=== PATIENT | female | born 1940 | race Native Hawaiian/Other Pacific Islander ===

== ENCOUNTER 2016-11-22 05:46 | Inpatient (IN) | payer MEDICARE, OTHER ==
[~2016-11-22] VITALS: Ht 157.5 cm; Wt 70.3 kg
[2016-11-22] VITALS (24 sets, daily range): BP systolic 101–158; BP diastolic 49–90
[~2016-11-22 05:46] MED LIST: ACET-2154 PO; ALBU2.5V13 IH; ALPR0.255 PO; APIX5TAB PO; ASCO500C16 PO; ASCO500T9 NG; ASPI81TA31 PO; ATOR80TA PO; BISA10SU8 RC; CALC500T3 PO; CARV12.52 NG; CEFT1VIA65 IV; CHOL200013 PO; DIPH25CA83 PO; DOCU-170 PO; DOCU50LI NG; DULO60CA45 PO; FLUC100T NG; Furosemide PO; GLIP10TA11 PO; HYDR-552 PO; IPRA0.2S48 IH; LACT1CAP57 NG; LIDOCAINE PATCH TOP; MAG360OR83 PO; METO50TA7 PO; MINE120C3 TP; MINE454C11 TOP; MIRT7.5T10 PO; MULT1TAB11 PO; NIFE60TA2 PO; Nut.tx.glucose Intolerance,Soy PO; ONDA4TAB5 PO; OXYCONTIN HCL PO; PANT40TA2 PO; RXVAN XX; SODI473S8 TP; Silver Sulfadiazine TP; ZINC220C8 NG; ZINC220T PO; [UNRECOGNIZED DRUG - OTHER]; [UNRECOGNIZED DRUG - OTHER] SUBCUT
[2016-11-22] MEDS ORDERED: FURO-152 PO (06:04)
[2016-11-22] MEDS ORDERED: LOSA100T3 PO (06:09)
[2016-11-22] MEDS ORDERED: AMLO10TA4 PO (06:09)
[2016-11-22 06:35] LABS: BASOPHILS # (AUTO) 0.2 K/uL (0.0-0.2); BASOPHILS % (AUTO) 1.6 % (0.0-2.0); EOSINOPHILS # (AUTO) 0.2 K/uL (0.0-0.7); EOSINOPHILS % (AUTO) 1.5 % (0.0-7.0); LYMPHOCYTES # (AUTO) 1.5 K/uL (0.8-4.8); LYMPHOCYTES % (AUTO) 14.4 % (20.5-51.5); MEAN CORPUSCULAR HGB CONC 32 g/dL (32.0-37.0); MEAN CORPUSCULAR VOLUME 89.8 fL (81.0-99.0); MONOCYTES # (AUTO) 0.6 K/uL (0.1-1.30); MONOCYTES % (AUTO) 5.6 % (0.0-11.0); NEUTROPHILS # (AUTO) 7.9 K/uL (1.8-8.9); NEUTROPHILS % (AUTO) 76.9 % (38.5-71.5); PLATELET COUNT (AUTO) 371 K/uL (150-450); RED CELL DISTRIBUTION WIDTH 17.9 % (11.5-14.5); WHITE BLOOD COUNT (AUTO) 10.4 K/uL (4.0-11.2)
[2016-11-22 06:42] LABS: POTASSIUM 6.4 mmol/L (3.5-5.1)
[2016-11-22 06:43] LABS: CREATININE 2.6 mg/dL (0.6-1.3)
[2016-11-22] MEDS ORDERED: DEXTROSE 50% 50 ML DISP.SYRIN IV ONE ×2 (06:45→13:45)
[2016-11-22] MEDS ORDERED: FUROSEMIDE 20 MG/2 ML VIAL IV ONE (06:45)
[2016-11-22] MEDS ORDERED: NITROGLYCERIN OINT 1 GM PACKET TP ONE ×2 (06:45→06:55)
[2016-11-22 06:50] LABS: NT-PRO BNP 16171 pg/mL (0-125)
[2016-11-22 06:51] LABS: HEMATOCRIT 20.6 % (37.0-47.0); HEMOGLOBIN 6.7 g/dL (12.0-16.0); RED BLOOD CELL COUNT(AUTO) 2.29 MIL/uL (4.20-5.40)
[2016-11-22] MEDS ORDERED: DEXTROSE 50% 50 ML DISP.SYRIN ONE (06:53)
[2016-11-22] MEDS ORDERED: FUROSEMIDE 40 MG/4 ML VIAL ONE (06:55)
--- NOTE | 2016-11-22 07:00 | NUR ---
Telephone SBAR report received by MAGNETO ELECTRICIANHEATHER Lowe.
--- NOTE | 2016-11-22 07:02 | NUR ---
Removed nitro-paste per ERMD, b/p = 102/58.
[2016-11-22 07:11] LABS: ALANINE AMINOTRANSFERASE 28 U/L (14-59); ALBUMIN 1.9 g/dL (3.4-5.0); ALKALINE PHOSPHATASE 124 U/L (50-136); ASPARTATE AMINOTRANSFERASE 46 U/L (15-37); BILIRUBIN,DIRECT < 0.1 mg/dL (0.0-0.2); BILIRUBIN,TOTAL 0.3 mg/dL (0.2-1.0); TOTAL PROTEIN, SERUM 7.4 g/dL (6.4-8.2)
--- NOTE | 2016-11-22 07:14 | NUR ---
PICC line requested, Nursing Locomotive Mechanic Notified.
--- NOTE | 2016-11-22 07:20 | NUR ---
Pt received from ER awake and alert. VSS. Pt on 2L NC. telemetry monitor and alarms working properly wnl. Fall precautions and safety measures maintained. Pt stable and nad noted upon admission.
[2016-11-22] MEDS ORDERED: CALCIUM GLUCONATE IV 1 GM in IV DEXTROSE 5% 50 ML IV ONE ×4 (07:30)
[2016-11-22] MEDS ORDERED: CALCIUM GLUCONATE 1 GM/10 ML VIAL IV ONE (07:38)
--- NOTE | 2016-11-22 07:57 | NUR ---
SBAR REPORT TO CCU, BELONGINGS LIST/ADMIT ORDER WRITTEN, PT VIA GUERNEY/MONITOR TO CCU-2 WITH PT'S FAMILY.
--- NOTE | 2016-11-22 08:30 | NUR ---
PICC line RN here to insert midline at the bedside.
--- NOTE | 2016-11-22 08:54 | NUR ---
Spoke with son and family at the bedside regarding plan of care. Reassured that I will f/u with the doctor's new admission orders. Family verbalized understanding.
--- NOTE | 2016-11-22 08:57 | NUR ---
Dr. Chaudhary here to see pt. Full report given. New orders received and carried out.
[2016-11-22] MEDS ORDERED: BUMETANIDE INJ 2 MG in IV DEXTROSE 5% 42 ML IV ONE (09:00)
[2016-11-22] MEDS ORDERED: SODIUM POLYSTYRENE SULFONATE 15 G/60 ML LIQUID UDC PO ONE (09:15)
[2016-11-22] MEDS ORDERED: Z GUARD REMEDY PASTE 57 GM TUBE TOP PRN (09:15)
[2016-11-22] MEDS ORDERED: ACETAMINOPHEN 325 MG TABLET PO PRN (09:15)
[2016-11-22 09:33] LABS: IRON, SERUM 27 ug/dL (50-175)
[2016-11-22 10:00] LABS: FERRITIN 531 ng/mL (8-252)
[2016-11-22] MEDS ORDERED: CALCIUM CARBONATE 500 MG TABLET PO PRN (10:00)
[2016-11-22] MEDS ORDERED: HYDROCODONE/APAP 5-325MG TABLET PO PRN (10:00)
[2016-11-22] MEDS ORDERED: MAG HYDROX/AL HYDROX/SIMETH 30 ML LIQUID UDC PO PRN (10:00)
[2016-11-22] MEDS ORDERED: BISACODYL 10 MG SUPP.RECT RC PRN (10:00)
[2016-11-22] MEDS ORDERED: ONDANSETRON HCL 4 MG TABLET PO PRN (10:00)
--- NOTE | 2016-11-22 10:45 | NUR ---
1st unit of PRBC started. Will closely monitor for any signs for adverse reactions.
--- NOTE | 2016-11-22 11:15 | NUR ---
Pt tolerating 1st unit of PRBC well and no adverse reactions noted or reported from the pt. Will continue to monitor.
[2016-11-22] MEDS ORDERED: INSULIN LISPRO 1000 UNITS/10 ML VIAL(HUMALOG) SQ SCH (11:30)
[2016-11-22] MEDS: MULTIVIT, IRON, MIN NO. 8, FA TABLET PO SCH (11:52)
[2016-11-22 11:56] LABS: ANISOCYTOSIS 1+; BAND % (MANUAL) 2 % (0-10); EOSINOPHILS % (MANUAL) 2 % (0-8); HYPOCHROMASIA 1+; LYMPHOCYTES % (MANUAL) 15 % (20-40); MONOCYTES % (MANUAL) 6 % (2-10); NEUTROPHILS % (MANUAL) 75 % (42-75); PLATELET ESTIMATE ADEQUATE
--- NOTE | 2016-11-22 12:53 | NUR ---
1st unit of PRBC completed. Pt tolerated blood transfusion well and no adverse reactions noted or reported from the pt.
--- NOTE | 2016-11-22 13:15 | NUR ---
2nd unit of PRBC started. Will continue to monitor pt for any adverse reactions.
[2016-11-22 13:21] LABS: BASOPHILS # (AUTO) 0.1 K/uL (0.0-0.2); BASOPHILS % (AUTO) 0.7 % (0.0-2.0); EOSINOPHILS # (AUTO) 0.1 K/uL (0.0-0.7); EOSINOPHILS % (AUTO) 0.7 % (0.0-7.0); HEMATOCRIT 24.3 % (37.0-47.0); HEMOGLOBIN 7.9 g/dL (12.0-16.0); LYMPHOCYTES # (AUTO) 1.7 K/uL (0.8-4.8); LYMPHOCYTES % (AUTO) 16.8 % (20.5-51.5); MEAN CORPUSCULAR HEMOGLOBIN 28.9 uug (27.0-31.0); MEAN CORPUSCULAR HGB CONC 33 g/dL (32.0-37.0); MEAN CORPUSCULAR VOLUME 88.6 fL (81.0-99.0); MONOCYTES # (AUTO) 0.4 K/uL (0.1-1.30); MONOCYTES % (AUTO) 3.7 % (0.0-11.0); NEUTROPHILS # (AUTO) 7.8 K/uL (1.8-8.9); NEUTROPHILS % (AUTO) 78.1 % (38.5-71.5); PLATELET COUNT (AUTO) 366 K/uL (150-450); RED BLOOD CELL COUNT(AUTO) 2.74 MIL/uL (4.20-5.40); RED CELL DISTRIBUTION WIDTH 17.6 % (11.5-14.5); WHITE BLOOD COUNT (AUTO) 10.1 K/uL (4.0-11.2)
[2016-11-22 13:35] LABS: CALCIUM 8.2 mg/dL (8.5-10.1); POTASSIUM 5.4 mmol/L (3.5-5.1)
[2016-11-22 13:37] LABS: CREATININE 2.7 mg/dL (0.6-1.3)
[2016-11-22] MEDS: HYDROCODONE/APAP 5-325MG TABLET PO PRN (13:45)
[2016-11-22] MEDS: ONDANSETRON 4 MG/2 ML VIAL IV PRN (13:49)
[2016-11-22] MEDS ORDERED: IV 10% DEXTROSE 1,000 ML IV PRN (14:15)
--- NOTE | 2016-11-22 14:15 | NUR ---
Dr. Chaudhary here to see pt. Full report given regarding pt's sudden change of level of consciousness and complaints of chest pain. New orders received and carried out.
--- NOTE | 2016-11-22 14:39 | NUR ---
US tech here to see pt for US kidneys.
[2016-11-22 14:45] LABS: *URINE TOTAL PROTEIN RANDOM 132.7 mg/dL (<150/24HR)
[2016-11-22 14:58] LABS: *BILIRUBIN,URIN NEGATIVE (NEGATIVE); *BLOOD, URINE 2+ (NEGATIVE); *CLARITY,URINE CLOUDY (CLEAR); *KETONES,URINE NEGATIVE (NEGATIVE); *PROTEIN,URINE 2+ (NEGATIVE); *UROBILINOGEN,URINE 0.2 E.U./dl (NORMAL); LEUKOCYTE ESTERASE ,URINE 2+ (NEGATIVE); UGLUCOSE NEGATIVE (NEGATIVE)
--- NOTE | 2016-11-22 15:21 | NUR ---
Pt requesting to leave against medical advice and stated that he wanted to go to another hospital right now. MD made aware and pt educated about the health risks. Pt verbalized understanding. Addendum: 11/22/16 at 1524 by YAIR DAVISON RN *Charted on wrong pt. Disregard note.
[2016-11-22 15:34] LABS: *COLOR,URINE YELLOW (YELLOW); NITRITE, URINE POSITIVE (NEGATIVE)
[2016-11-22 15:37] LABS: BACTERIA,URINE MANY /HPF (NONE SEEN); SQUAMOUS EPITHELIAL CELL,UR MODERATE /HPF (NONE SEEN); URINE AMORPHOUS URATE MODERATE /HPF; WBC,URINE 50-80 /HPF (0-3)
[2016-11-22] MEDS: BLOOD SUGAR DIAGNOSTIC 1 EACH STRIP VI SCH ×4 (16:29→21:19)
[2016-11-22] MEDS ORDERED: BLOOD SUGAR DIAGNOSTIC 1 EACH STRIP VI SCH (16:30)
--- NOTE | 2016-11-22 16:45 | NUR ---
2nd unit of PRBC completed. Pt tolerated transfusion well and no adverse reactions noted or reported from the pt.
[2016-11-22] MEDS ORDERED: glipiZIDE 10 MG TABLET PO SCH (17:00)
[2016-11-22] MEDS: PANTOPRAZOLE SODIUM 40 MG TABLET.DR PO SCH (17:29)
[2016-11-22] MEDS: DOCUSATE SODIUM 100 MG CAPSULE PO SCH (17:29)
[2016-11-22] MEDS: CARVEDILOL 6.25 MG TABLET PO SCH (17:29)
[2016-11-22 17:55] LABS: *OCCULT BLOOD STOOL NEGATIVE (NEGATIVE)
--- NOTE | 2016-11-22 18:44 | NUR ---
End of shift: Pt resting and dozing off in bed with fall precautions and safety measures maintained. quality assurance monitor and alarms working properly wnl. IVF infusing as ordered. Pt on 2L NC. DVT pumps on bilaterally. Grayson catheter intact and draining properly. Pt hemodynamically stable and nad noted.
--- NOTE | 2016-11-22 18:56 | NUR ---
Dr. Moya (Medical Appointment Clerk) here to see pt. Full report given. All questions answered with family at the bedside.
--- NOTE | 2016-11-22 20:00 | NUR ---
RECEIVED PT DROWSY BUT AROUSABLE FOLLOWS TO COMMAND. ON O2 @ 2LNC W/ O2 SAT OF 100%.IVF D10W @ 25CC/HR ON R WRIST IV SITE PERIPHERALLY, TRANSFERED TO MIDLINE IV SITE ON BRITANY. V/S STABLE. NOT IN ANY DISTRESS.
--- NOTE | 2016-11-22 20:47 | NUR ---
ACCUCHECK DONE BS-29, ORANGE JUICE 240CC & D50 1 AMP GIVEN IVP. WILL CHECK BS IN 30 MINS.
[2016-11-22] MEDS: DEXTROSE 50% 50 ML DISP.SYRIN IV PRN (21:07)
[2016-11-22] MEDS: ATORVASTATIN 40 MG TABLET PO SCH (21:08)
--- NOTE | 2016-11-22 21:37 | NUR ---
RECHECKED BS-130. PT IS AWAKE, FOLLOWS TO COMMAND.
--- NOTE | 2016-11-22 22:30 | NUR ---
HS CARE DONE. Z-GUARD CREAM APPLIED TO PERIANAL AREA. REPOSITIONED ON HER SIDE W/ HOB ELEVATED. V/S STABLE.
[2016-11-23] VITALS (23 sets, daily range): BP systolic 101–155; BP diastolic 44–90
[2016-11-23] MEDS: BLOOD SUGAR DIAGNOSTIC 1 EACH STRIP VI SCH ×4 (02:30→20:45)
--- NOTE | 2016-11-23 02:30 | NUR ---
PT. IS MOANING,CHECKED PT. SKIN IS COLD & CLAMMY. ACCUCHECK DONE BS-26. D50% 1 AMP GIVEN IVP & OJ 240CC GIVEN PO. DR Barbara KUMAR NOTIFIED W/ ORDER TO UPDATE MD IN AM.
[2016-11-23] MEDS: DEXTROSE 50% 50 ML DISP.SYRIN IV PRN ×5 (02:39→18:44)
--- NOTE | 2016-11-23 03:08 | NUR ---
BLOOD SUGAR RECHECKED BY ACCUCHECK BS-106.
--- NOTE | 2016-11-23 04:30 | NUR ---
am care done. oral care done. had small form stool. repositioned on her side w/ hob elevated.
[2016-11-23 05:19] LABS: BASOPHILS # (AUTO) 0.1 K/uL (0.0-0.2); BASOPHILS % (AUTO) 0.6 % (0.0-2.0); EOSINOPHILS # (AUTO) 0.1 K/uL (0.0-0.7); EOSINOPHILS % (AUTO) 0.8 % (0.0-7.0); HEMATOCRIT 28.6 % (37.0-47.0); HEMOGLOBIN 9.1 g/dL (12.0-16.0); LYMPHOCYTES # (AUTO) 1.2 K/uL (0.8-4.8); LYMPHOCYTES % (AUTO) 11.3 % (20.5-51.5); MEAN CORPUSCULAR HEMOGLOBIN 28.2 uug (27.0-31.0); MEAN CORPUSCULAR HGB CONC 32 g/dL (32.0-37.0); MEAN CORPUSCULAR VOLUME 88.3 fL (81.0-99.0); MONOCYTES # (AUTO) 0.7 K/uL (0.1-1.30); MONOCYTES % (AUTO) 6.2 % (0.0-11.0); NEUTROPHILS # (AUTO) 8.5 K/uL (1.8-8.9); NEUTROPHILS % (AUTO) 81.1 % (38.5-71.5); PLATELET COUNT (AUTO) 351 K/uL (150-450); RED BLOOD CELL COUNT(AUTO) 3.24 MIL/uL (4.20-5.40); RED CELL DISTRIBUTION WIDTH 18.5 % (11.5-14.5); WHITE BLOOD COUNT (AUTO) 10.6 K/uL (4.0-11.2)
--- NOTE | 2016-11-23 06:14 | NUR ---
resting quitely. v/s stable.
--- NOTE | 2016-11-23 06:38 | NUR ---
pt. is moaning, checked blood sugar by marija, bs-28. d50 1 amp given ivp & oj 240cc given. will recheck bs in 30 mins.
[2016-11-23 07:51] LABS: CALCIUM 7.8 mg/dL (8.5-10.1); MAGNESIUM 1.9 mg/dL (1.8-2.4); PHOSPHOROUS 7.1 mg/dL (2.5-4.9); POTASSIUM 5.2 mmol/L (3.5-5.1)
[2016-11-23 07:52] LABS: CREATININE 2.7 mg/dL (0.6-1.3)
[2016-11-23] MEDS: ZINC SULFATE 220 MG CAPSULE NG SCH (08:29)
[2016-11-23] MEDS: MULTIVIT, IRON, MIN NO. 8, FA TABLET PO SCH (08:29)
[2016-11-23] MEDS: DOCUSATE SODIUM 100 MG CAPSULE PO SCH ×2 (08:29→17:58)
[2016-11-23] MEDS: PANTOPRAZOLE SODIUM 40 MG TABLET.DR PO SCH ×2 (08:29→17:58)
[2016-11-23] MEDS: CARVEDILOL 6.25 MG TABLET PO SCH ×2 (08:30→17:58)
[2016-11-23] MEDS ORDERED: BUMETANIDE 1 MG/4 ML VIAL IV SCH (09:00)
[2016-11-23] MEDS ORDERED: METOPROLOL SUCCINATE XL 50 MG TAB.SR.24H PO SCH (09:00)
[2016-11-23] MEDS ORDERED: DULOXETINE 60 MG CAPSULE.DR PO SCH (09:00)
--- NOTE | 2016-11-23 10:30 | NUR ---
PT STARTS MOANING AND FEELING COLD CLAMMY. ACCU CHECK DONE AND IT 31. RANDOM GLUCOSE ORDERED AND DONE STAT. RESULTED AT 35. D50W GIVEN SLOW IVP ORDERED. AND 1 CUP OF OJ TOLERATED WELL. CALLED AND NOTIFIED DR TOMLINSON WITH NEW ORDERS. D10W IVF INCREASED UP TO 50ML/HR. VIA THE MIDLINE ACCESS LEFT UPPER ARM.
[2016-11-23] MEDS: CHOLECALCIFEROL 1,000 UNIT TABLET PO SCH (10:40)
--- NOTE | 2016-11-23 11:00 | NUR ---
RECHECKED BLOOD SUGAR 77. PT APPEARS MORE CALM AND SKIN IS DRY.
[2016-11-23] MEDS ORDERED: IV 10% DEXTROSE 1,000 ML IV PRN (12:15)
--- NOTE | 2016-11-23 14:30 | NUR ---
PT STARTING TO BE RESTLESS, MOANING AND COLD CLAMMY. ACCU CHECK RANDOM DONE AND ITS 35. SEEN AND EXAMINED BY DR TOMLINSON WITH NEW ORDERS. D50W GIVEN VIA SLOW IVP AND INCEREASE THE D10W IVF TO 75ML/HR PER DR TOMLINSON. PT TOLERATED THE ORANGE JUICE WELL. FAMILY BROUGHT HER SOME FOOD NOODLES AND PT ATE A LITTLE.
[2016-11-23] MEDS: BUMETANIDE 1 MG/4 ML VIAL IV SCH (17:58)
[2016-11-23] MEDS: IV 10% DEXTROSE 1,000 ML IV PRN (17:59)
--- NOTE | 2016-11-23 18:45 | NUR ---
PT ATE VERY WELL. STARTED TO TO GET RESTLESS AND SWEATY. ACCU CHECK DONE=40. GAVE D50W VIA SLOW IVP AND I CUP OF OJ. CALLED UP DR TOMLINSON AND NOTIFIED OF THE GLUCOSE RESULT. AND ALSO THE CULTURE RESULT OF THE WOUND ON THE CHEST.
[2016-11-23 18:52] LABS: *OCCULT BLOOD STOOL NEGATIVE (NEGATIVE)
[2016-11-23] MEDS ORDERED: CEFTRIAXONE 1 G VIAL IM SCH (19:15)
--- NOTE | 2016-11-23 19:15 | NUR ---
RECHECKED BS AFTER 30MIN AND ITS 100. PT IS STIL FEELING A LITTLE RESTLESS.
[2016-11-23] MEDS: HYDROCODONE/APAP 5-325MG TABLET PO PRN (19:44)
--- NOTE | 2016-11-23 19:44 | NUR ---
RECEIVED PT. C/O LEFT LATERAL CHEST PAIN, MEDICATED W/ NORCO 5/325MG 1 TAB PO. IVF D10W @ 75CC/HR VIA BRITANY MIDLINE. ON O2 @ 3LNC W/ O2 SAT OF 99%, C/O SOB, REPOSITIONED IN W/ HOB HIGHLY ELEVATED 45 DEGREES, CALLED FOR RT TO GIVE ATROVENT TX.
[2016-11-23] MEDS: IPRATROPIUM BROMIDE 0.5 MG/2.5 ML NEBU IH PRN (20:28)
[2016-11-23] MEDS: diphenhydrAMINE 25 MG CAP PO PRN (20:37)
[2016-11-23] MEDS: ATORVASTATIN 40 MG TABLET PO SCH (20:37)
--- NOTE | 2016-11-23 21:00 | NUR ---
PT. STILL C/O OF LEFT CHEST PAIN, EKG DONE & TROPONIN DONE. NO SIGNIFICANT CHANGES NOTED. REPOSITIONED W/ HOB E/EVATED & ASSURANCE GIVEN TO PT.
--- NOTE | 2016-11-23 22:00 | NUR ---
PT IS RESTING QUITELY THIS TIME. V/S STABLE.
[2016-11-24] VITALS (24 sets, daily range): BP systolic 121–153; BP diastolic 55–81
--- NOTE | 2016-11-24 00:27 | NUR ---
PT. IS MOANING , SKIN IS COLD & CLAMMY. ACCUCHECK DONE BS-29. D50 1 AMP GIVEN IVP & OJ 240 CC GIVEN PO.
[2016-11-24] MEDS: BLOOD SUGAR DIAGNOSTIC 1 EACH STRIP VI SCH ×6 (00:32→20:45)
--- NOTE | 2016-11-24 01:05 | NUR ---
RECHECKED BS-107. REMAINS ON D10W @ 75CC/HR.
[2016-11-24] MEDS: DEXTROSE 50% 50 ML DISP.SYRIN IV PRN ×2 (03:22→21:37)
[2016-11-24] MEDS: HYDROCODONE/APAP 5-325MG TABLET PO PRN ×3 (03:25→09:45)
--- NOTE | 2016-11-24 03:40 | NUR ---
DR HINKLE CALLED RE: PT. C/O SEVERE L CHEST PAIN W/ ORDER, ALSO UPDATED OF LOW BLOOD SUGAR.
[2016-11-24] MEDS: HYDROMORPHONE 1 MG/1 ML DISP.SYRIN IV PRN ×2 (03:43→20:03)
[2016-11-24] MEDS ORDERED: HYDROMORPHONE 1 MG/1 ML DISP.SYRIN ONE (03:50)
[2016-11-24] MEDS ORDERED: IV 10% DEXTROSE 1,000 ML IV PRN (04:00)
--- NOTE | 2016-11-24 04:30 | NUR ---
AM CARE DONE, REFUSED ORAL CARE . CLEANED WOUND ON HER CHEST & R THIGH W/ HYDROGEL APPLIED & COVERED W/ MEPILEX DRSG.
--- NOTE | 2016-11-24 06:00 | NUR ---
RESTING QUITELY THIS TIME. V/S STABLE.
[2016-11-24] MEDS: IV 10% DEXTROSE 1,000 ML IV PRN (06:06)
--- NOTE | 2016-11-24 06:57 | NUR ---
PT STARTED TO MOAN, CHECKED BS BY ACCUCHECK-65, NO COVERAGE NEEDED.
--- NOTE | 2016-11-24 07:30 | NUR ---
RECIEVED LYING IN BED, HOB UP 45DEGREES. PT APPEARS CALM. BS-87. SKIN IS DRY AND WARM. SLEEPING ON AND OFF.
[2016-11-24] MEDS: MULTIVIT, IRON, MIN NO. 8, FA TABLET PO SCH (08:06)
[2016-11-24] MEDS: CHOLECALCIFEROL 1,000 UNIT TABLET PO SCH (08:06)
[2016-11-24] MEDS: PANTOPRAZOLE SODIUM 40 MG TABLET.DR PO SCH ×2 (08:06→17:45)
[2016-11-24] MEDS: ZINC SULFATE 220 MG CAPSULE NG SCH (08:06)
[2016-11-24] MEDS: DOCUSATE SODIUM 100 MG CAPSULE PO SCH ×2 (08:06→17:45)
[2016-11-24] MEDS: CARVEDILOL 6.25 MG TABLET PO SCH ×2 (08:07→17:45)
[2016-11-24] MEDS: BUMETANIDE 1 MG/4 ML VIAL IV SCH ×2 (08:07→17:00)
--- NOTE | 2016-11-24 08:30 | NUR ---
PT IS MOANING AND HAVING SOME EPISODE OF SOB. BS 112. CALLED UP DR TOMLINSON ABOUT PT CONDITION. MEDICATED WITH NORCO 1TAB PO FOR COMFORT. MAIN IVF IS D10W RUNNING AT 90ML/HR. ON THE LEFT UPPER ARM INFUSING WELL.
--- NOTE | 2016-11-24 10:30 | NUR ---
PT GIVEN SIPS OF OJ EVERY NOW AND THEN. ABLE TO SLEEP INTERMITTENTLY.
[2016-11-24] MEDS: ONDANSETRON 4 MG/2 ML VIAL IV PRN ×2 (10:46→21:32)
[2016-11-24 11:48] LABS: BASOPHILS % (AUTO) 0.2 % (0.0-2.0); EOSINOPHILS # (AUTO) 0.1 K/uL (0.0-0.7); EOSINOPHILS % (AUTO) 1.1 % (0.0-7.0); HEMATOCRIT 30.4 % (37.0-47.0); HEMOGLOBIN 9.9 g/dL (12.0-16.0); LYMPHOCYTES # (AUTO) 1.4 K/uL (0.8-4.8); LYMPHOCYTES % (AUTO) 11.4 % (20.5-51.5); MEAN CORPUSCULAR HEMOGLOBIN 28.7 uug (27.0-31.0); MEAN CORPUSCULAR HGB CONC 33 g/dL (32.0-37.0); MEAN CORPUSCULAR VOLUME 87.8 fL (81.0-99.0); MONOCYTES # (AUTO) 1.2 K/uL (0.1-1.30); MONOCYTES % (AUTO) 9.6 % (0.0-11.0); NEUTROPHILS # (AUTO) 9.5 K/uL (1.8-8.9); NEUTROPHILS % (AUTO) 77.7 % (38.5-71.5); PLATELET COUNT (AUTO) 433 K/uL (150-450); RED BLOOD CELL COUNT(AUTO) 3.46 MIL/uL (4.20-5.40); RED CELL DISTRIBUTION WIDTH 17.5 % (11.5-14.5); WHITE BLOOD COUNT (AUTO) 12.2 K/uL (4.0-11.2)
[2016-11-24 11:50] LABS: ALBUMIN 1.7 g/dL (3.4-5.0); BILIRUBIN,TOTAL 0.3 mg/dL (0.2-1.0); CALCIUM 7.7 mg/dL (8.5-10.1); TOTAL PROTEIN, SERUM 6.9 g/dL (6.4-8.2)
--- NOTE | 2016-11-24 12:05 | NUR ---
CRITICAL RESULT POTASSIUM -6.2. CALLED IT TO DR TOMLINSON WITH NEW ORDERS.
[2016-11-24 12:08] LABS: CREATININE 2.7 mg/dL (0.6-1.3); POTASSIUM 6.2 mmol/L (3.5-5.1)
[2016-11-24 12:22] LABS: BAND % (MANUAL) 3 % (0-10); EOSINOPHILS % (MANUAL) 2 % (0-8); LYMPHOCYTES % (MANUAL) 13 % (20-40); MONOCYTES % (MANUAL) 5 % (2-10); MYELOCYTES % 1 % (0-0); NEUTROPHILS % (MANUAL) 76 % (42-75)
[2016-11-24 12:23] LABS: ANISOCYTOSIS 1+; PLATELET ESTIMATE INCREASED
[2016-11-24] MEDS ORDERED: SODIUM POLYSTYRENE SULFONATE 15 G/60 ML LIQUID UDC PO ONE ×2 (12:45→20:15)
--- NOTE | 2016-11-24 12:45 | NUR ---
RECIEVED RESULT OF C.DIF FROM [facility]. AND DR TOMLINSON MADE AWARE.
--- NOTE | 2016-11-24 13:00 | NUR ---
KAYXALATE 30GMS PO GIVEN ORDERED.
[2016-11-24] MEDS ORDERED: BUMETANIDE INJ 3 MG in IV DEXTROSE 5% 38 ML IV ONE (14:00)
[2016-11-24] MEDS: SODIUM CHLORIDE 4 MEQ/ML VIAL 154 MEQ in IV 10% DEXTROSE 1,000 ML IV PRN (15:13)
[2016-11-24] MEDS: VANCOMYCIN FOR PO/GT/NG USE PO SCH ×2 (15:15→17:47)
[2016-11-24 18:51] LABS: CALCIUM 7.8 mg/dL (8.5-10.1); POTASSIUM 6.1 mmol/L (3.5-5.1)
[2016-11-24 18:52] LABS: CREATININE 2.7 mg/dL (0.6-1.3)
--- NOTE | 2016-11-24 19:30 | NUR ---
Report received. Patient TERI, speaks very minimal Bruneian, fidgety, restless. Advised. On contact isolation for stool C diff. Assessment completed. Addendum: 11/24/16 at 2155 by JEAN MARIE PATIÑO RN Amended: Links added.
--- NOTE | 2016-11-24 20:00 | NUR ---
Moaning and groaning. Continues to be restless; communicating about wanting to sleep. Medicated with Dilaudid for generalized discomfort. Addendum: 11/24/16 at 2157 by JEAN MARIE PATIÑO RN Amended: Links added. Addendum: 11/24/16 at 2159 by JEAN MARIE PATIÑO RN Amended: Links added.
--- NOTE | 2016-11-24 20:15 | NUR ---
Results of latest labs called to Dr. Chaudhary. Orders received. Addendum: 11/24/16 at 2148 by JEAN MARIE PATIÑO RN Amended: Links added.
--- NOTE | 2016-11-24 20:20 | NUR ---
Turned and repositioned. Skin care provided. Kayexalate po given. Patient cooperative, but mildly restless. Addendum: 11/24/16 at 2149 by JEAN MARIE PATIÑO RN Amended: Links added.
[2016-11-24] MEDS ORDERED: SODIUM POLYSTYRENE SULFONATE 15 G/60 ML LIQUID UDC ONE (20:27)
[2016-11-24] MEDS: CEFTRIAXONE 1 G in IV DEXTROSE 5% 50 ML IV SCH (20:38)
--- NOTE | 2016-11-24 20:44 | NUR ---
Accucheck=66. Sugar water given. Will recheck Blood glucose in an hour. Addendum: 11/24/16 at 2159 by JEAN MARIE PATIÑO RN Amended: Links added.
[2016-11-24] MEDS: ATORVASTATIN 40 MG TABLET PO SCH (20:45)
--- NOTE | 2016-11-24 21:30 | NUR ---
Retching, nauseaus. Medicated with Zofran IV.
--- NOTE | 2016-11-24 21:36 | NUR ---
Repeat accucheck=55; D50%W 1 amp given IV. Patient awake, asymptomatic. Addendum: 11/24/16 at 2329 by JEAN MARIE PATIÑO RN Amended: Links added. Addendum: 11/25/16 at 0015 by JEAN MARIE PATIÑO RN Amended: Links added.
[2016-11-24] MEDS: METRONIDAZOLE 500 MG/NS 100ML 500 MG in PREMIXED 1 EACH IV SCH (21:38)
--- NOTE | 2016-11-24 22:30 | NUR ---
Spoke to Dr. Chaudhary re: patient's urine output and IV rate at 100 ml/H. Also aware of Accucheck blood glucose=55. As per MD to continue current IV rate. No new orders. Addendum: 11/24/16 at 2232 by JEAN MARIE PATIÑO RN Amended: Links added.
[2016-11-24] MEDS: ZOLPIDEM 5 MG TABLET PO PRN (22:38)
--- NOTE | 2016-11-24 22:52 | NUR ---
Repeat accucheck after D50% =88. Remains on D10%W IV at 100 ml/H. Addendum: 11/25/16 at 0343 by JEAN MARIE PATIÑO RN Amended: Links added. Addendum: 11/25/16 at 0346 by JEAN MARIE PATIÑO RN Amended: Links added.
[2016-11-25] VITALS (24 sets, daily range): BP systolic 119–161; BP diastolic 47–111
[2016-11-25] MEDS: VANCOMYCIN FOR PO/GT/NG USE PO SCH ×5 (00:02→23:27)
--- NOTE | 2016-11-25 01:10 | NUR ---
Awake, mildly restless again. Bath given. Medicated with Dilaudid for generalized pain. Addendum: 11/25/16 at 0346 by JEAN MARIE PATIÑO RN Amended: Links added.
[2016-11-25] MEDS: HYDROMORPHONE 1 MG/1 ML DISP.SYRIN IV PRN (01:12)
--- NOTE | 2016-11-25 01:45 | NUR ---
Patient fidgety and scratching. Medicated with Benadryl po. Talking in Yakut looking for something. Matias ROMERO (from [facility] here to interpret. Patient looking for her purse. No purse at bedside. Family were here at change of shift; will follow up. Addendum: 11/25/16 at 0352 by JEAN MARIE PATIÑO RN Amended: Links added. Addendum: 11/25/16 at 0353 by JEAN MARIE PATIÑO RN Amended: Links added.
[2016-11-25] MEDS: diphenhydrAMINE 25 MG CAP PO PRN (01:48)
[2016-11-25] MEDS: SODIUM CHLORIDE 4 MEQ/ML VIAL 154 MEQ in IV 10% DEXTROSE 1,000 ML IV PRN ×2 (02:38→17:57)
--- NOTE | 2016-11-25 03:00 | NUR ---
Gagging and retching; vomited small amounts of brownish fluids. Zofran IV given. Addendum: 11/25/16 at 0353 by JEAN MARIE PATIÑO RN Amended: Links added.
[2016-11-25] MEDS: ONDANSETRON 4 MG/2 ML VIAL IV PRN (03:02)
--- NOTE | 2016-11-25 03:30 | NUR ---
Talking and laughing in her sleep.
--- NOTE | 2016-11-25 04:00 | NUR ---
Mildly SOB with audible wheezing. RT paged. Respiratory treatment given, Sat remains above 95%. Addendum: 11/25/16 at 0731 by JEAN MARIE PATIÑO RN Amended: Links added.
[2016-11-25] MEDS: IPRATROPIUM BROMIDE 0.5 MG/2.5 ML NEBU IH PRN ×2 (04:05→13:23)
--- NOTE | 2016-11-25 04:30 | NUR ---
Breathing improved after treatment. Still mildly restless. Addendum: 11/25/16 at 3228 by JEAN MARIE PATIÑO RN Amended: Links added.
[2016-11-25 05:15] LABS: BASOPHILS % (AUTO) 0.2 % (0.0-2.0); EOSINOPHILS # (AUTO) 0.2 K/uL (0.0-0.7); EOSINOPHILS % (AUTO) 1.5 % (0.0-7.0); HEMOGLOBIN 9.9 g/dL (12.0-16.0); LYMPHOCYTES # (AUTO) 1.5 K/uL (0.8-4.8); MEAN CORPUSCULAR HEMOGLOBIN 30.5 uug (27.0-31.0); MEAN CORPUSCULAR HGB CONC 34 g/dL (32.0-37.0); MEAN CORPUSCULAR VOLUME 89.5 fL (81.0-99.0); MONOCYTES # (AUTO) 0.8 K/uL (0.1-1.30); MONOCYTES % (AUTO) 7.4 % (0.0-11.0); NEUTROPHILS # (AUTO) 8.2 K/uL (1.8-8.9); NEUTROPHILS % (AUTO) 76.9 % (38.5-71.5); PLATELET COUNT (AUTO) 462 K/uL (150-450); RED BLOOD CELL COUNT(AUTO) 3.24 MIL/uL (4.20-5.40); RED CELL DISTRIBUTION WIDTH 17.3 % (11.5-14.5); WHITE BLOOD COUNT (AUTO) 10.7 K/uL (4.0-11.2)
[2016-11-25 05:19] LABS: MAGNESIUM 1.7 mg/dL (1.8-2.4)
[2016-11-25] MEDS: METRONIDAZOLE 500 MG/NS 100ML 500 MG in PREMIXED 1 EACH IV SCH ×3 (05:36→21:52)
[2016-11-25 06:28] LABS: CALCIUM 7.6 mg/dL (8.5-10.1); POTASSIUM 5.1 mmol/L (3.5-5.1)
[2016-11-25 06:32] LABS: CREATININE 2.6 mg/dL (0.6-1.3)
[2016-11-25] MEDS: DEXTROSE 50% 50 ML DISP.SYRIN IV PRN (06:54)
--- NOTE | 2016-11-25 06:54 | NUR ---
Accucheck=49; D50% 1 amp given.
[2016-11-25] MEDS: BLOOD SUGAR DIAGNOSTIC 1 EACH STRIP VI SCH ×4 (06:56→20:33)
--- NOTE | 2016-11-25 07:15 | NUR ---
Spoke to Dr. Chaudhary re: am labs and patient's condition. Orders received. SBAR report to Tez ROMERO.
[2016-11-25] MEDS ORDERED: MAGNESIUM SULFATE/D5W 100 ML IV SCH (07:30)
[2016-11-25] MEDS: MULTIVIT, IRON, MIN NO. 8, FA TABLET PO SCH (07:49)
[2016-11-25] MEDS: PANTOPRAZOLE SODIUM 40 MG TABLET.DR PO SCH ×2 (07:49→17:12)
[2016-11-25] MEDS: DOCUSATE SODIUM 100 MG CAPSULE PO SCH ×2 (07:50→17:12)
[2016-11-25] MEDS: CARVEDILOL 6.25 MG TABLET PO SCH ×2 (07:50→17:13)
[2016-11-25] MEDS: ZINC SULFATE 220 MG CAPSULE NG SCH (07:50)
[2016-11-25] MEDS: CHOLECALCIFEROL 1,000 UNIT TABLET PO SCH (07:52)
--- NOTE | 2016-11-25 09:56 | NUR ---
PT.WAS SEEN BY
[2016-11-25] MEDS ORDERED: BUMETANIDE INJ 4 MG in IV DEXTROSE 5% 24 ML IV ONE (10:30)
--- NOTE | 2016-11-25 11:03 | NUR ---
pt.was seen by and Harriet with new orders.
--- NOTE | 2016-11-25 11:37 | NUR ---
Family members at bedside,updated with pt.condition and plan of care.
--- NOTE | 2016-11-25 12:14 | NUR ---
Pt.was seen by with new orders.
--- NOTE | 2016-11-25 12:45 | NUR ---
CLINICAL PHARMACY NOTE: VANCOMYCIN DOSING Request for vancomycin dosing on 76 y/o female 5'2" for cellulitis for right thigh Temp 98.8, BUN 59 Scr 2.6 WBC 10.7 also on ceftriaxone and metronidazole Will dose vancomycin by level due to decreased renal function. Vancomycin 1gm ivpb today. Random vancomycin level tomorrow. Will continue to monitor
[2016-11-25] MEDS ORDERED: VANCOMYCIN IV 1 G in PREMIXED 0 EACH IV ONE ×2 (14:00→15:00)
--- NOTE | 2016-11-25 15:15 | NUR ---
TEAM FOR THORACENT.AT BEDSIDE,PT.TOLERATED WELL. 680ML OUPUT.
--- NOTE | 2016-11-25 18:30 | NUR ---
PT.WATCHING TV,NO S/S OF DISTRESS OR PAIN.
[2016-11-25 18:38] LABS: PROTEIN, BODY FLUID 3.6 G/DL
[2016-11-25 18:53] LABS: TOTAL VOLUME,BODY FLUID 460 mL
[2016-11-25] MEDS ORDERED: BUMETANIDE IV ONE (19:00)
[2016-11-25] MEDS ORDERED: DEXTROSE 5% IV ONE (19:00)
--- NOTE | 2016-11-25 19:30 | NUR ---
Report received. Patient sleeping, easily arouses to name. On contact isolation for Stool C diff. Patient speaks very little Divehi; primary language Spanish. On continuous Bumex drip at 0.5 mg/H. Assessment completed. Addendum: 11/25/16 at 2146 by JEAN MARIE PATIÑO RN Amended: Links added.
--- NOTE | 2016-11-25 20:00 | NUR ---
Family visited. Patient AA. Addendum: 11/25/16 at 2343 by JEAN MARIE PATIÑO RN Amended: Links added. Addendum: 11/25/16 at 2346 by JEAN MARIE PATIÑO RN Amended: Links added.
[2016-11-25] MEDS: ATORVASTATIN 40 MG TABLET PO SCH (20:30)
[2016-11-25] MEDS: CEFTRIAXONE 1 G in IV DEXTROSE 5% 50 ML IV SCH (20:30)
--- NOTE | 2016-11-25 20:30 | NUR ---
Incontinent of soft brown stools. Cleaned; skin care provided. Grimacing during care and repositioning. Medicated with [place]. Addendum: 11/25/16 at 2346 by JEAN MARIE PATIÑO RN Amended: Links added.
[2016-11-25] MEDS: HYDROCODONE/APAP 5-325MG TABLET PO PRN (20:31)
[2016-11-25] MEDS: INSULIN REGULAR, HUMAN 300 UNIT/3 ML VIAL SQ PRN (21:01)
[2016-11-25 21:02] LABS: WBC, BODY FLUID 433 /cu. mm (0-200/cu.mm)
[2016-11-25 21:03] LABS: MONOCYTES,BODY FLUID 23 %; POLYNUCLEAR, BODY FLUID 10 % (0-25 %)
[2016-11-26] VITALS (22 sets, daily range): BP systolic 122–158; BP diastolic 56–82
--- NOTE | 2016-11-26 | NUR ---
Sleeping at intervals. Cleaned for another soft brown BM. VS stable. Addendum: 11/26/16 at 0621 by JEAN MARIE PATIÑO RN Amended: Links added.
[2016-11-26] MEDS: HYDROCODONE/APAP 5-325MG TABLET PO PRN ×2 (02:29→21:42)
[2016-11-26 05:29] LABS: BILIRUBIN,TOTAL 0.2 mg/dL (0.2-1.0); CALCIUM 6.8 mg/dL (8.5-10.1); MAGNESIUM 1.9 mg/dL (1.8-2.4); PHOSPHOROUS 6.1 mg/dL (2.5-4.9); POTASSIUM 3.9 mmol/L (3.5-5.1); TOTAL PROTEIN, SERUM 5.7 g/dL (6.4-8.2)
[2016-11-26 05:31] LABS: BASOPHILS % (AUTO) 0.3 % (0.0-2.0); EOSINOPHILS # (AUTO) 0.2 K/uL (0.0-0.7); EOSINOPHILS % (AUTO) 2.1 % (0.0-7.0); HEMATOCRIT 26.5 % (37.0-47.0); HEMOGLOBIN 8.5 g/dL (12.0-16.0); LYMPHOCYTES # (AUTO) 1.3 K/uL (0.8-4.8); MEAN CORPUSCULAR HEMOGLOBIN 28.6 uug (27.0-31.0); MEAN CORPUSCULAR HGB CONC 32 g/dL (32.0-37.0); MONOCYTES # (AUTO) 0.5 K/uL (0.1-1.30); MONOCYTES % (AUTO) 6.3 % (0.0-11.0); NEUTROPHILS # (AUTO) 6.4 K/uL (1.8-8.9); NEUTROPHILS % (AUTO) 75.3 % (38.5-71.5); PLATELET COUNT (AUTO) 347 K/uL (150-450); RED BLOOD CELL COUNT(AUTO) 2.97 MIL/uL (4.20-5.40); RED CELL DISTRIBUTION WIDTH 17.3 % (11.5-14.5); WHITE BLOOD COUNT (AUTO) 8.4 K/uL (4.0-11.2)
[2016-11-26] MEDS: VANCOMYCIN FOR PO/GT/NG USE PO SCH ×4 (05:35→23:41)
[2016-11-26] MEDS: SODIUM CHLORIDE 4 MEQ/ML VIAL 154 MEQ in IV 10% DEXTROSE 1,000 ML IV PRN (05:35)
[2016-11-26] MEDS: METRONIDAZOLE 500 MG/NS 100ML 500 MG in PREMIXED 1 EACH IV SCH ×3 (05:35→21:51)
--- NOTE | 2016-11-26 06:00 | NUR ---
Sat 89-90% on room air; O2 therapy continued. Remains on Bumex drip at 0.5 mg/H. Urine output= 875 ml x 12 H. Addendum: 11/26/16 at 0624 by JEAN MARIE PATIÑO RN Amended: Links added.
[2016-11-26 06:01] LABS: ALBUMIN 1.3 g/dL (3.4-5.0); CREATININE 2.6 mg/dL (0.6-1.3)
[2016-11-26] MEDS: BLOOD SUGAR DIAGNOSTIC 1 EACH STRIP VI SCH ×4 (07:09→20:46)
--- NOTE | 2016-11-26 07:58 | NUR ---
Dr. Tracey here to see pt. Full report given. New orders received.
--- NOTE | 2016-11-26 08:00 | NUR ---
Pt received awake and alert, follows commands on 1st step air mattress. monitor and storage bin tender and alarms working properly wnl. Pt on 2L NC. Fall precautions and safety measures maintained. IVF infusing as ordered. Grayson catheter intact and draining properly. Pt hemodynamically stable and nad noted.
[2016-11-26] MEDS: DOCUSATE SODIUM 100 MG CAPSULE PO SCH ×2 (08:33→17:00)
[2016-11-26] MEDS: MULTIVIT, IRON, MIN NO. 8, FA TABLET PO SCH (08:33)
[2016-11-26] MEDS: ZINC SULFATE 220 MG CAPSULE NG SCH (08:33)
[2016-11-26] MEDS: PANTOPRAZOLE SODIUM 40 MG TABLET.DR PO SCH ×2 (08:33→17:00)
[2016-11-26] MEDS: CHOLECALCIFEROL 1,000 UNIT TABLET PO SCH (08:33)
[2016-11-26] MEDS: CARVEDILOL 6.25 MG TABLET PO SCH ×2 (08:35→17:19)
[2016-11-26 09:04] LABS: ABG BASE EXCESS 2.8 mmol/L; ABG HCO3 30.6 mmol/L; ABG PCO2 65.8 mmHg (35.0-45.0); ABG PH 7.286 (7.350-7.450); ABG PO2 75.8 mmHg (75.0-100.0); ABG SITE RIGHT RADIAL; ABG TOTAL HEMOGLOBIN 10.2 G/dL (12.0-16.0); COHb 1.2 % (0.5-1.5); MetHb 0.3 % (0.0-1.5); O2Hb 93.6 % (94.0-97.0)
[2016-11-26] MEDS: INSULIN REGULAR, HUMAN 300 UNIT/3 ML VIAL SQ PRN (11:35)
--- NOTE | 2016-11-26 13:34 | NUR ---
WOUND CARE CONSULT: PT PRESENTS WITH CHEST WOUND AND RT THIGH WOUND, PRESENT ON ADMISSION. UNABLE TO PROBE CHEST WOUND DUE TO SMALL SIZE. RECOMMEND SURGICAL CONSULT. PT ON FIRST STEP MATTRESS. ALL SKIN PROTECTION MEASURES IN PLACE. CONCUR WITH CURRENT WOUND ORDERS. DISCUSSED ALL SKIN PROTECTION AND WOUND RECOMMENDATIONS WITH NURSING STAFF. WILL SEE PRN. VARGAS IN AGREEMENT WITH PLAN OF CARE. Addendum: 11/26/16 at 1336 by JEN LOPEZ RN Amended: Links added.
[2016-11-26] MEDS: ALBUMIN HUMAN 25% 25 GM in PREMIXED 1 EACH IV SCH ×3 (14:07→23:44)
[2016-11-26] MEDS: HYDROMORPHONE 1 MG/1 ML DISP.SYRIN IV PRN (15:37)
--- NOTE | 2016-11-26 15:58 | NUR ---
Clinical pharmacy note-Vancomycin dosing per pharmacy Subjective: To continue Vancomycin dosing on this patient for right thigh cellulitis Objective: BUN 56 Scr 2.6 WBC 8.4 Temp 98 Vancomycin random 10 Assessment/Plan: Since renal function is unstable, will continue dose by fall-off random level. Vancomycin 1 gram x1 scheduled to give today at 1600 and random is on order for tomorrow 3 pm. Will monitor renal function closely to adjust the dose if needed. Will follow daily.
[2016-11-26] MEDS ORDERED: VANCOMYCIN IV 1 G in PREMIXED 0 EACH IV ONE (16:00)
--- NOTE | 2016-11-26 16:04 | NUR ---
Dr. Lira here to see pt. Full report given. New orders received.
[2016-11-26] MEDS ORDERED: ALBUMIN HUMAN 25% 100 ML ONE ×3 (17:12→23:52)
--- NOTE | 2016-11-26 20:00 | NUR ---
RECEIVED PT ALERT & ORIENTED X3, DENIES PAIN THIS TIME. IVF D10%W W/ NACL 4MEQ @ 100C/HR VIA MIDLINE ON BRITANY. AFEBRILE BP STABLE. ON O2 @ 2LNC W/ O2 SAT OF 98%. REPOSITIONED IN BED FOR COMFORTS. NOT IN ANY DISTRESS.
[2016-11-26] MEDS: CEFTRIAXONE 1 G in IV DEXTROSE 5% 50 ML IV SCH (20:46)
[2016-11-26] MEDS: ATORVASTATIN 40 MG TABLET PO SCH (20:46)
--- NOTE | 2016-11-26 23:00 | NUR ---
HS CARE DONE. WAS MEDICATED W/ NORCO 5/325MG PO FOR L CHEST PAIN. REPOSITIONED W/ HOB ELEVATED.
[2016-11-27] VITALS (23 sets, daily range): BP systolic 134–183; BP diastolic 47–93
--- NOTE | 2016-11-27 01:00 | NUR ---
SLEEPING WELL. BP STABLE. O2 SAT ADEQ.
[2016-11-27] MEDS: SODIUM CHLORIDE 4 MEQ/ML VIAL 154 MEQ in IV 10% DEXTROSE 1,000 ML IV PRN (01:25)
--- NOTE | 2016-11-27 04:00 | NUR ---
AM CARE DONE . WOUND ON R THIGH . MIDSTERNAL & L CHEST CLEANED & COVERED W/ MEPILEX DRSG. REPOSITIONED PT. W/ HOB ELEVATED.
[2016-11-27 05:23] LABS: EOSINOPHILS # (AUTO) 0.1 K/uL (0.0-0.7); EOSINOPHILS % (AUTO) 1.2 % (0.0-7.0); HEMATOCRIT 26.3 % (37.0-47.0); HEMOGLOBIN 8.7 g/dL (12.0-16.0); MEAN CORPUSCULAR HEMOGLOBIN 29.6 uug (27.0-31.0); MEAN CORPUSCULAR HGB CONC 33 g/dL (32.0-37.0); MEAN CORPUSCULAR VOLUME 89.1 fL (81.0-99.0); MONOCYTES # (AUTO) 0.3 K/uL (0.1-1.30); MONOCYTES % (AUTO) 3.5 % (0.0-11.0); NEUTROPHILS # (AUTO) 8.1 K/uL (1.8-8.9); NEUTROPHILS % (AUTO) 84.3 % (38.5-71.5); PLATELET COUNT (AUTO) 333 K/uL (150-450); RED BLOOD CELL COUNT(AUTO) 2.95 MIL/uL (4.20-5.40); RED CELL DISTRIBUTION WIDTH 17.3 % (11.5-14.5); WHITE BLOOD COUNT (AUTO) 9.5 K/uL (4.0-11.2)
[2016-11-27 05:26] LABS: ALBUMIN 2.4 g/dL (3.4-5.0); BILIRUBIN,TOTAL 0.4 mg/dL (0.2-1.0); CALCIUM 7.3 mg/dL (8.5-10.1); MAGNESIUM 1.7 mg/dL (1.8-2.4); PHOSPHOROUS 6.3 mg/dL (2.5-4.9); POTASSIUM 3.9 mmol/L (3.5-5.1); TOTAL PROTEIN, SERUM 6.4 g/dL (6.4-8.2)
[2016-11-27] MEDS: ALBUMIN HUMAN 25% 25 GM in PREMIXED 1 EACH IV SCH (05:34)
[2016-11-27] MEDS: METRONIDAZOLE 500 MG/NS 100ML 500 MG in PREMIXED 1 EACH IV SCH ×3 (05:34→21:47)
[2016-11-27] MEDS: VANCOMYCIN FOR PO/GT/NG USE PO SCH ×4 (05:34→23:26)
[2016-11-27 05:39] LABS: CREATININE 2.3 mg/dL (0.6-1.3)
[2016-11-27] MEDS ORDERED: ALBUMIN HUMAN 25% 100 ML ONE (05:41)
--- NOTE | 2016-11-27 06:16 | NUR ---
RESTING QUITELY. V/S STABLE.
[2016-11-27] MEDS: BLOOD SUGAR DIAGNOSTIC 1 EACH STRIP VI SCH ×4 (08:33→20:55)
[2016-11-27] MEDS: ZINC SULFATE 220 MG CAPSULE NG SCH (08:38)
[2016-11-27] MEDS: PANTOPRAZOLE SODIUM 40 MG TABLET.DR PO SCH ×2 (08:38→16:27)
[2016-11-27] MEDS: CARVEDILOL 6.25 MG TABLET PO SCH ×2 (08:38→18:02)
[2016-11-27] MEDS: CHOLECALCIFEROL 1,000 UNIT TABLET PO SCH (08:39)
[2016-11-27] MEDS: DOCUSATE SODIUM 100 MG CAPSULE PO SCH ×2 (08:39→16:27)
[2016-11-27] MEDS: MULTIVIT, IRON, MIN NO. 8, FA TABLET PO SCH (08:39)
[2016-11-27] MEDS ORDERED: MISCELLANEOUS MED XX PRN (09:00)
--- NOTE | 2016-11-27 09:00 | NUR ---
SEEN AND EXAMINED BY DR TOMLINSON WITH NEW ORDERS. NO APPARENT DISTRESS NOTED.
--- NOTE | 2016-11-27 09:30 | NUR ---
MAIN IVF DECREASED DOWN TO 25ML/HR ORDERED.
--- NOTE | 2016-11-27 11:30 | NUR ---
SEEN AND EXAMINED BY DR WHITE , DR FRANKLIN AND DR LEAL WITH NEW ORDERS.
--- NOTE | 2016-11-27 11:30 | NUR ---
PT ATE GOOD DINNER. NO APPARENT DISTRESS NOTED. MAGNESIUM SULFATE 2GMS STATED TO INFUSE ORDERED BY DR LUNDBERG.
[2016-11-27] MEDS: MAGNESIUM SULFATE/D5W 100 ML IV SCH ×2 (12:17→14:03)
[2016-11-27] MEDS: BUMETANIDE 1 MG/4 ML VIAL IV SCH ×2 (12:18→16:27)
[2016-11-27] MEDS: ASPIRIN 81 MG TAB.CHEW PO SCH (12:18)
[2016-11-27] MEDS: AMLODIPINE 5 MG TABLET PO SCH (12:19)
--- NOTE | 2016-11-27 16:14 | NUR ---
Clinical pharmacy note-Vancomycin dosing per pharmacy Subjective: To continue Vancomycin dosing on this patient for right thigh cellulitis Objective: BUN 56 Scr 2.6 WBC 8.4 Temp 98 Vancomycin random 18 today at 1500 Assessment/Plan: Since renal function is unstable, will continue dose by fall-off random level. Vancomycin 1 gram x1 scheduled to give today at 2000 and random is on order for 11/29 at 0600. Will follow daily.
--- NOTE | 2016-11-27 16:30 | NUR ---
PM CARE RENDERED. PT TOLERATING WELL.
[2016-11-27] MEDS ORDERED: VANCOMYCIN IV 1 G in PREMIXED 0 EACH IV ONE (20:00)
--- NOTE | 2016-11-27 20:00 | NUR ---
RECEIVED PT. DROWSY BUT AROUSABLE. ON O2 @2LNC W/ O2 SAT OF 100%. IVF D10%W W/ 4MEQ NACL @ 25CC/HR ON BRITANY MIDLINE. C-SCOPE SR-SB. AFEBRILE, BP STABLE. REPOSITIONED PT W/ HOB ELEVATED.
[2016-11-27] MEDS: CEFTRIAXONE 1 G in IV DEXTROSE 5% 50 ML IV SCH (20:54)
[2016-11-27] MEDS: ATORVASTATIN 40 MG TABLET PO SCH (20:55)
[2016-11-27] MEDS: INSULIN REGULAR, HUMAN 300 UNIT/3 ML VIAL SQ PRN (21:05)
--- NOTE | 2016-11-27 22:00 | NUR ---
HS CARE DONE. NOT IN ANY DISTRESS.
--- NOTE | 2016-11-27 22:07 | NUR ---
PT DOING WELL, PT ON O2 @ 2L/M NC, WITH NO CALLS FOR Q4PRN NEB RX ,AT THIS TIME, NO SOB NOTED. Lucian BHATIA RCP Addendum: 11/27/16 at 2208 by BENJAMIN BHATIA RT Amended: Links added.
[2016-11-28] VITALS (12 sets, daily range): BP systolic 127–166; BP diastolic 55–86
--- NOTE | 2016-11-28 | NUR ---
AFEBRILE. V/S STABLE. DENIES PAIN.
--- NOTE | 2016-11-28 01:43 | NUR ---
PT ON O2 @ 2 L/M NC, NO NEB RX GIVEN, PT WITH NO SOB NOTED, HR 68, PULSE OXY 100%. Lucian BHATIA MAC ARTIST Addendum: 11/28/16 at 0144 by BENJAMIN BHATIA RT Amended: Links added.
--- NOTE | 2016-11-28 04:00 | NUR ---
AM CARE DONE. REFUSED ORAL CARE. CLEANED WOUND ON L CHEST, MIDSTERNAL & R THIGH, APPLIED HYDROGEL SERAFIN THEN COVERED W/ MEPILEX DRSG.
[2016-11-28] MEDS: METRONIDAZOLE 500 MG/NS 100ML 500 MG in PREMIXED 1 EACH IV SCH ×3 (05:31→22:20)
[2016-11-28] MEDS: VANCOMYCIN FOR PO/GT/NG USE PO SCH ×4 (05:31→23:45)
--- NOTE | 2016-11-28 06:09 | NUR ---
RESTING QUITELY. V/S STABLE.
[2016-11-28 06:28] LABS: BASOPHILS # (AUTO) 0.1 K/uL (0.0-0.2); BASOPHILS % (AUTO) 1.1 % (0.0-2.0); EOSINOPHILS # (AUTO) 0.1 K/uL (0.0-0.7); HEMATOCRIT 27.5 % (37.0-47.0); HEMOGLOBIN 9.1 g/dL (12.0-16.0); LYMPHOCYTES % (AUTO) 9.9 % (20.5-51.5); MEAN CORPUSCULAR HEMOGLOBIN 29.4 uug (27.0-31.0); MEAN CORPUSCULAR HGB CONC 33 g/dL (32.0-37.0); MEAN CORPUSCULAR VOLUME 88.4 fL (81.0-99.0); MONOCYTES # (AUTO) 0.4 K/uL (0.1-1.30); MONOCYTES % (AUTO) 4.3 % (0.0-11.0); NEUTROPHILS # (AUTO) 8.5 K/uL (1.8-8.9); NEUTROPHILS % (AUTO) 83.7 % (38.5-71.5); PLATELET COUNT (AUTO) 363 K/uL (150-450); RED BLOOD CELL COUNT(AUTO) 3.11 MIL/uL (4.20-5.40); RED CELL DISTRIBUTION WIDTH 17.2 % (11.5-14.5); WHITE BLOOD COUNT (AUTO) 10.1 K/uL (4.0-11.2)
[2016-11-28 06:49] LABS: ALBUMIN 2.3 g/dL (3.4-5.0); BILIRUBIN,TOTAL 0.4 mg/dL (0.2-1.0); CALCIUM 8.2 mg/dL (8.5-10.1); MAGNESIUM 2.4 mg/dL (1.8-2.4); PHOSPHOROUS 5.6 mg/dL (2.5-4.9); TOTAL PROTEIN, SERUM 6.4 g/dL (6.4-8.2)
[2016-11-28 06:53] LABS: CREATININE 2.1 mg/dL (0.6-1.3)
[2016-11-28] MEDS: BLOOD SUGAR DIAGNOSTIC 1 EACH STRIP VI SCH ×4 (08:11→21:52)
[2016-11-28] MEDS: BUMETANIDE 1 MG/4 ML VIAL IV SCH ×2 (08:12→16:12)
[2016-11-28] MEDS: CARVEDILOL 6.25 MG TABLET PO SCH ×2 (08:12→17:23)
[2016-11-28] MEDS: DOCUSATE SODIUM 100 MG CAPSULE PO SCH ×2 (08:13→16:09)
[2016-11-28] MEDS: MULTIVIT, IRON, MIN NO. 8, FA TABLET PO SCH (08:13)
[2016-11-28] MEDS: AMLODIPINE 5 MG TABLET PO SCH (08:13)
[2016-11-28] MEDS: ZINC SULFATE 220 MG CAPSULE NG SCH (08:13)
[2016-11-28] MEDS: ASPIRIN 81 MG TAB.CHEW PO SCH (08:13)
[2016-11-28] MEDS: PANTOPRAZOLE SODIUM 40 MG TABLET.DR PO SCH ×2 (08:13→16:10)
[2016-11-28] MEDS: CHOLECALCIFEROL 1,000 UNIT TABLET PO SCH (08:14)
--- NOTE | 2016-11-28 09:05 | NUR ---
Dr. Finnegan in the unit to see patient, full report given, and orders to down grade patient to Med-surge received. spring up supervisor informed.
--- NOTE | 2016-11-28 09:45 | NUR ---
Dr. Lira called to be notified of ABG results of this morning also to notify him of Pt's transfer and down grade to Med-surg.
[2016-11-28 10:16] LABS: ABG BASE EXCESS 2.9 mmol/L; ABG PCO2 58.4 mmHg (35.0-45.0); ABG PH 7.329 (7.350-7.450); ABG PO2 99.5 mmHg (75.0-100.0); ABG SITE RIGHT RADIAL; ABG TOTAL HEMOGLOBIN 12.2 G/dL (12.0-16.0); MetHb 0.2 % (0.0-1.5); O2Hb 96.3 % (94.0-97.0); VENT MODE Nasal Cannula
--- NOTE | 2016-11-28 10:23 | NUR ---
call rn Yolanda for report awaiting call back.
--- NOTE | 2016-11-28 10:47 | NUR ---
Telephone report give to HEATHER Guerrero. all systems covered. and all questions answer. Patient taken up to room 203 by RR heather Germain. Vital signs stable.
[2016-11-28] MEDS ORDERED: AMLODIPINE 2.5 MG TABLET PO ONE (11:45)
--- NOTE | 2016-11-28 11:45 | NUR ---
PT RECEIVED FROM CCU VIA BED TO ROOM 203 IN STABLE CONDITION.V/S ARE STABLE.
--- NOTE | 2016-11-28 14:36 | NUR ---
Clinical pharmacy note-Vancomycin dosing per pharmacy Subjective: To continue Vancomycin dosing on this patient for right thigh cellulitis Objective: BUN 47 Scr 2.1 WBC 10.1 Temp 97.8 Assessment/Plan: Since renal function is unstable, will continue dose by fall-off random level. No dose shall be due today. Vancomycin 1 gram x1 was given yesterday at 2000 and random is on order for 11/29 at 0600. Will follow daily.
--- NOTE | 2016-11-28 19:00 | NUR ---
PATIENT AWAKE, BUT FORGETFUL NO SOB, NO CHEST PAIN NOTED, OXYGEN SAT WNL, CONT TO MONITOR.
[2016-11-28] MEDS: ATORVASTATIN 40 MG TABLET PO SCH (21:36)
[2016-11-28] MEDS: CEFTRIAXONE 1 G in IV DEXTROSE 5% 50 ML IV SCH (21:36)
[2016-11-28] MEDS: INSULIN REGULAR, HUMAN 300 UNIT/3 ML VIAL SQ PRN (21:53)
[2016-11-28] MEDS: ZOLPIDEM 5 MG TABLET PO PRN (23:06)
[2016-11-29 04:00] VITALS: BP 151/80
[2016-11-29] MEDS: METRONIDAZOLE 500 MG/NS 100ML 500 MG in PREMIXED 1 EACH IV SCH ×2 (05:02→13:13)
[2016-11-29] MEDS: VANCOMYCIN FOR PO/GT/NG USE PO SCH ×2 (05:03→11:28)
[2016-11-29] MEDS: BLOOD SUGAR DIAGNOSTIC 1 EACH STRIP VI SCH ×3 (06:03→16:02)
--- NOTE | 2016-11-29 06:48 | NUR ---
PATIENT AWAKE SLEPT MOST OF THE NIGHT, REMAIN IN CONTACT ISOLATION, NO SOB, NO CHEST PAIN, TURN AND REPOSITION, CONT TO MONITOR.
[2016-11-29] MEDS: ASPIRIN 81 MG TAB.CHEW PO SCH (08:09)
[2016-11-29] MEDS: DOCUSATE SODIUM 100 MG CAPSULE PO SCH ×2 (08:09→16:54)
[2016-11-29] MEDS: MULTIVIT, IRON, MIN NO. 8, FA TABLET PO SCH (08:09)
[2016-11-29] MEDS: CHOLECALCIFEROL 1,000 UNIT TABLET PO SCH (08:10)
[2016-11-29] MEDS: CARVEDILOL 6.25 MG TABLET PO SCH (08:10)
[2016-11-29] MEDS: ZINC SULFATE 220 MG CAPSULE NG SCH (08:10)
[2016-11-29] MEDS: PANTOPRAZOLE SODIUM 40 MG TABLET.DR PO SCH ×2 (08:10→16:54)
[2016-11-29] MEDS: BUMETANIDE 1 MG/4 ML VIAL IV SCH ×2 (08:22→16:58)
[2016-11-29 08:47] LABS: ALBUMIN 2.1 g/dL (3.4-5.0); BILIRUBIN,TOTAL 0.3 mg/dL (0.2-1.0); MAGNESIUM 2.3 mg/dL (1.8-2.4); PHOSPHOROUS 4.8 mg/dL (2.5-4.9); POTASSIUM 3.9 mmol/L (3.5-5.1); TOTAL PROTEIN, SERUM 6.5 g/dL (6.4-8.2)
--- NOTE | 2016-11-29 08:52 | NUR ---
Clinical pharmacy note-Vancomycin dosing per pharmacy Subjective: To continue Vancomycin dosing on this patient for right thigh cellulitis Objective: BUN 45 Scr 2 WBC 10.1 (11/28) Temp 98.2 Assessment/Plan: Since renal function is unstable, will continue dose by fall-off random level. No dose shall be due today since vancomycin random level is 25 mcg/ml. Plan to check vancomycin random tomorrow 11/30 at 0600 for further dosing. Will follow daily.
[2016-11-29] MEDS ORDERED: AMLODIPINE 10 MG TABLET PO SCH (09:00)
[2016-11-29] MEDS ORDERED: AMLODIPINE 5 MG TABLET PO SCH (09:00)
[2016-11-29 10:22] LABS: ABG SITE RIGHT RADIAL
[2016-11-29 10:43] LABS: ABG BASE EXCESS 4.9 mmol/L; ABG HCO3 30.5 mmol/L; ABG PCO2 50.3 mmHg (35.0-45.0); ABG PH 7.401 (7.350-7.450); ABG PO2 58.3 mmHg (75.0-100.0); ABG TOTAL HEMOGLOBIN 10.2 G/dL (12.0-16.0); COHb 1.1 % (0.5-1.5); MetHb 0.2 % (0.0-1.5); O2Hb 88.7 % (94.0-97.0); VENT MODE ROOM AIR
[2016-11-29 11:24] LABS: BASOPHILS % (AUTO) 0.2 % (0.0-2.0); EOSINOPHILS % (AUTO) 1.3 % (0.0-7.0); HEMATOCRIT 30.6 % (37.0-47.0); HEMOGLOBIN 9.7 g/dL (12.0-16.0); LYMPHOCYTES % (AUTO) 10.3 % (20.5-51.5); MEAN CORPUSCULAR HEMOGLOBIN 28.6 uug (27.0-31.0); MEAN CORPUSCULAR HGB CONC 32 g/dL (32.0-37.0); MONOCYTES # (AUTO) 0.6 K/uL (0.1-1.30); MONOCYTES % (AUTO) 5.6 % (0.0-11.0); NEUTROPHILS # (AUTO) 8.4 K/uL (1.8-8.9); NEUTROPHILS % (AUTO) 82.6 % (38.5-71.5); PLATELET COUNT (AUTO) 391 K/uL (150-450); RED CELL DISTRIBUTION WIDTH 18.1 % (11.5-14.5); WHITE BLOOD COUNT (AUTO) 10.2 K/uL (4.0-11.2)
[2016-11-29 11:25] LABS: EOSINOPHILS # (AUTO) 0.1 K/uL (0.0-0.7)
--- NOTE | 2016-11-29 11:36 | NUR ---
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 Diphenhydramine 25mg po q6h prn itching. Diphenhydramine is highly anticholinergic;clearance reduced with advance age. Increase risk of confusion dry mouth, and constipation. Bumetanide 2mg IV BID. Bumetanide can cause loss of electrolytes sodium and potassium. Zolpidem 5mg hs prn. Zolpidem increase sedation---increase fall risk. Recommendation: Discontinue zolpidem maybe try melatonin. Monitor electrolytes.
[2016-11-29 12:09] VITALS: BP 155/76
[2016-11-29] MEDS ORDERED: ACETAzolamide SODIUM 500 MG VIAL IV SCH (13:00)
[2016-11-29 15:30] VITALS: BP 149/77
[2016-11-29] MEDS ORDERED: HYDR-3326 PO (15:38)
[2016-11-29] MEDS ORDERED: Vancomycin Hcl PO (15:38)
[2016-11-29] MEDS ORDERED: METR500P3 IV (15:38)
[2016-11-29] MEDS ORDERED: AMLO10TA2 PO (15:38)
[2016-11-29] MEDS ORDERED: CEFT1VIA15 IV (15:38)
[2016-11-29] MEDS ORDERED: RXVAN XX (15:38)
[2016-11-29] MEDS ORDERED: ASPI81TA31 PO (15:38)
--- NOTE | 2016-11-29 17:30 | NUR ---
d/c orders received noted and carried out.d/c instruction and rn report given to jaxson rn over nursing lily.pt left the facility via ambulances with midline and f/c for i/v antibiotic in stable condition.
[2016-11-29] MEDS ORDERED: CARVEDILOL 12.5 MG TABLET PO SCH (18:00)
[2016-11-29] MEDS ORDERED: CARVEDILOL 6.25 MG TABLET PO SCH (18:00)
== END 2016-11-29 17:30 | DRG 177 ==
LOC: ER 05:49 → CCU 08:04 → MED 11-28 11:41
PROVIDERS: ADMIT Internal Medicine; ATTEND Internal Medicine
PROC: 05H633Z Insertion of Infusion Device into Left Subclavian Vein, Percutaneous Approach (ICD-10-PCS; principal; 2016-11-22)
PROC: 30233N1 Transfusion of Nonautologous Red Blood Cells into Peripheral Vein, Percutaneous Approach (ICD-10-PCS; 2016-11-22)
PROC: 0W993ZZ Drainage of Right Pleural Cavity, Percutaneous Approach (ICD-10-PCS; 2016-11-25)
DX: J15.6 Pneumonia due to other Gram-negative bacteria (principal); E43 Unspecified severe protein-calorie malnutrition; G93.40 Encephalopathy, unspecified; I50.33 Acute on chronic diastolic (congestive) heart failure; N17.0 Acute kidney failure with tubular necrosis; J96.01 Acute respiratory failure with hypoxia; J96.22 Acute and chronic respiratory failure with hypercapnia; I13.0 Hypertensive heart and chronic kidney disease with heart failure and stage 1 through stage 4 chronic kidney disease, or unspecified chronic kidney disease; N39.0 Urinary tract infection, site not specified; J90 Pleural effusion, not elsewhere classified; A04.7 Enterocolitis due to Clostridium difficile; L03.313 Cellulitis of chest wall; J69.0 Pneumonitis due to inhalation of food and vomit; E11.649 Type 2 diabetes mellitus with hypoglycemia without coma; E11.22 Type 2 diabetes mellitus with diabetic chronic kidney disease; F03.90 Unspecified dementia, unspecified severity, without behavioral disturbance, psychotic disturbance, mood disturbance, and anxiety; E87.5 Hyperkalemia; E83.42 Hypomagnesemia; I48.0 Paroxysmal atrial fibrillation; K21.9 Gastro-esophageal reflux disease without esophagitis; B96.1 Klebsiella pneumoniae [K. pneumoniae] as the cause of diseases classified elsewhere; I25.10 Atherosclerotic heart disease of native coronary artery without angina pectoris; I25.2 Old myocardial infarction; Z79.01 Long term (current) use of anticoagulants; Z79.84 Long term (current) use of oral hypoglycemic drugs; Z95.1 Presence of aortocoronary bypass graft; J20.8 Acute bronchitis due to other specified organisms; B95.62 Methicillin resistant Staphylococcus aureus infection as the cause of diseases classified elsewhere; E88.09 Other disorders of plasma-protein metabolism, not elsewhere classified; S71.101A Unspecified open wound, right thigh, initial encounter; X58.XXXA Exposure to other specified factors, initial encounter; Y93.9 Activity, unspecified; Y92.009 Unspecified place in unspecified non-institutional (private) residence as the place of occurrence of the external cause; Y99.9 Unspecified external cause status; N18.2 Chronic kidney disease, stage 2 (mild); D63.8 Anemia in other chronic diseases classified elsewhere; Z68.28 Body mass index [BMI] 28.0-28.9, adult
CPT/HCPCS: 32555; 36415; 36600; 70030-TC; 71010; 76770; 76881; 82306; 83525; 83550; 83615; 83735; 83986; 84100; 84155; 84156; 84300; 84681; 85025; 85730; 86850; 86900; 86901; 86920; 87070; 87075; 87077; 87086; 87205; 87400; 92506; 93005; 93307; 94640; 94664; 97001; 97003; 97116; 97530; A4663; J0610; J0696; J1120; J1170; J1815; J1940; J2405; J3370; J3475; J3490; J3590; J7050; J7060; J7131; P9016-BL; P9021; P9047; Q0163

== ENCOUNTER 2016-12-12 17:26 | Inpatient (IN) | payer MEDICARE, OTHER ==
[~2016-12-12] VITALS: Ht 157.5 cm; Wt 74.8 kg
[~2016-12-12 17:26] MED LIST changes: -ACET-2154 PO; -ALBU2.5V13 IH; -ALPR0.255 PO; +AMLO10TA2 PO; -APIX5TAB PO; -ASCO500C16 PO; -ASCO500T9 NG; +CEFT1VIA15 IV; -CEFT1VIA65 IV; -DOCU50LI NG; -DULO60CA45 PO; -FLUC100T NG; -Furosemide PO; +HYDR-3326 PO; -LACT1CAP57 NG; -LIDOCAINE PATCH TOP; -MAG360OR83 PO; +METR500P3 IV; -MINE120C3 TP; -MINE454C11 TOP; -MIRT7.5T10 PO; -NIFE60TA2 PO; -Nut.tx.glucose Intolerance,Soy PO; -OXYCONTIN HCL PO; -SODI473S8 TP; -Silver Sulfadiazine TP; +Vancomycin Hcl PO; -ZINC220T PO; -[UNRECOGNIZED DRUG - OTHER]; -[UNRECOGNIZED DRUG - OTHER] SUBCUT
[2016-12-12] MEDS ORDERED: ALBUTEROL SULFATE 2.5 MG/3 ML NEBU NEB ONE (17:45)
[2016-12-12] MEDS ORDERED: SODIUM BICARBONATE 8.4% 50 MEQ/50 ML DISP.SYRIN IV ONE ×2 (17:45→20:40)
[2016-12-12] MEDS ORDERED: DEXTROSE 50% 50 ML DISP.SYRIN IV ONE (17:45)
[2016-12-12] MEDS ORDERED: FUROSEMIDE 20 MG/2 ML VIAL IVP ONE (17:45)
[2016-12-12] MEDS ORDERED: INSULIN REGULAR, HUMAN 300 UNIT/3 ML VIAL IV ONE (17:45)
[2016-12-12] MEDS ORDERED: FURO-151 PO (17:50)
[2016-12-12] MEDS ORDERED: ASCO500C16 PO (17:50)
[2016-12-12] MEDS ORDERED: POTA20PA4 PO (17:50)
[2016-12-12] MEDS ORDERED: METO5TAB7 PO (17:50)
[2016-12-12] MEDS ORDERED: LACTOBACILLUS PO (17:50)
[2016-12-12] MEDS ORDERED: PROT946L PO (17:50)
[2016-12-12] MEDS ORDERED: INSULIN LISPRO SQ (17:50)
[2016-12-12] MEDS ORDERED: CHOL40002 PO (17:50)
--- NOTE | 2016-12-12 17:54 | NUR ---
pt to [facility]emat[facility] to find a letitia for saline lock. dr burkett notified whom then gave me verbal order for picc line. presently cxr being done and rt at bedside for resp tx to be administered. monitor shows sinus rani,po2=89% on room air, presently pt receiving 2 l o2 via nasal cannula-po2=99%.
--- NOTE | 2016-12-12 18:02 | NUR ---
ordered picc line for the pt and shay the picc line nurse came and shay the picc line nurse came and nstated he could not do it because he had 2 other patients waiting at [facility]. I then called and spoke to chana the other picc line nurse whom then called back to inform that donnie rn would be in at 8pm to do picc line, dr burkett aware.
[2016-12-12] MEDS ORDERED: ALBUTEROL SULFATE 2.5 MG/ 0.5 ML NEBU ONE (18:05)
[2016-12-12 18:46] LABS: BASOPHILS # (AUTO) 0.1 K/uL (0.0-0.2); BASOPHILS % (AUTO) 1.2 % (0.0-2.0); EOSINOPHILS % (AUTO) 0.8 % (0.0-7.0); HEMATOCRIT 24.3 % (37.0-47.0); LYMPHOCYTES # (AUTO) 0.6 K/uL (0.8-4.8); LYMPHOCYTES % (AUTO) 9.4 % (20.5-51.5); MEAN CORPUSCULAR HEMOGLOBIN 30.6 uug (27.0-31.0); MEAN CORPUSCULAR HGB CONC 34 g/dL (32.0-37.0); MEAN CORPUSCULAR VOLUME 91.1 fL (81.0-99.0); MONOCYTES # (AUTO) 0.1 K/uL (0.1-1.30); NEUTROPHILS # (AUTO) 5.4 K/uL (1.8-8.9); NEUTROPHILS % (AUTO) 86.6 % (38.5-71.5); PLATELET COUNT (AUTO) 136 K/uL (150-450); RED BLOOD CELL COUNT(AUTO) 2.67 MIL/uL (4.20-5.40); RED CELL DISTRIBUTION WIDTH 18.2 % (11.5-14.5); WHITE BLOOD COUNT (AUTO) 6.2 K/uL (4.0-11.2)
[2016-12-12 18:49] LABS: HEMOGLOBIN 8.1 g/dL (12.0-16.0)
[2016-12-12 18:51] LABS: CALCIUM 7.9 mg/dL (8.5-10.1)
[2016-12-12 18:52] LABS: CREATININE 3.1 mg/dL (0.6-1.3)
[2016-12-12 18:53] LABS: POTASSIUM 6.9 mmol/L (3.5-5.1)
[2016-12-12 18:57] LABS: ALBUMIN 2.2 g/dL (3.4-5.0); BILIRUBIN,DIRECT 0.1 mg/dL (0.0-0.2); BILIRUBIN,TOTAL 0.2 mg/dL (0.2-1.0); TOTAL PROTEIN, SERUM 6.8 g/dL (6.4-8.2)
--- NOTE | 2016-12-12 19:03 | NUR ---
SBAR REPORT TO PM SHIFT.
[2016-12-12 19:05] LABS: ANISOCYTOSIS 2+
[2016-12-12] MEDS ORDERED: FUROSEMIDE 20 MG/2 ML VIAL ONE (20:39)
[2016-12-12] MEDS ORDERED: DEXTROSE 50% 50 ML DISP.SYRIN ONE (20:40)
[2016-12-12] MEDS ORDERED: INSULIN REGULAR, HUMAN 300 UNIT/3 ML VIAL ONE (20:40)
--- NOTE | 2016-12-12 21:00 | NUR ---
PICC LINE NURSE insert 20 g midline to right upper arm.
[2016-12-12] MEDS ORDERED: FUROSEMIDE 100 MG/10 ML VIAL ONE (21:18)
--- NOTE | 2016-12-12 21:35 | NUR ---
Pt. admitted to CCU1 under GOLDIE status under care of Dr. Chaudhary. Report called to Arley Luna RN. Belongs List completed
[2016-12-12 22:00] VITALS: BP 120/65
[2016-12-12] MEDS ORDERED: SODIUM POLYSTYRENE SULFONATE 15 G/60 ML LIQUID UDC PO ONE (23:30)
[2016-12-12] MEDS ORDERED: FUROSEMIDE 40 MG/4 ML VIAL IV ONE (23:30)
[2016-12-13] VITALS (19 sets, daily range): BP systolic 98–152; BP diastolic 44–96
[2016-12-13] MEDS ORDERED: DEXTROSE 50% 50 ML DISP.SYRIN ONE ×2 (01:22→06:02)
[2016-12-13 02:23] LABS: CALCIUM 7.7 mg/dL (8.5-10.1); POTASSIUM 5.8 mmol/L (3.5-5.1)
[2016-12-13 02:24] LABS: CREATININE 3.1 mg/dL (0.6-1.3)
[2016-12-13 05:33] LABS: CALCIUM 7.4 mg/dL (8.5-10.1); POTASSIUM 5.1 mmol/L (3.5-5.1)
[2016-12-13 05:39] LABS: BASOPHILS % (AUTO) 0.2 % (0.0-2.0); EOSINOPHILS % (AUTO) 0.4 % (0.0-7.0); HEMATOCRIT 25.9 % (37.0-47.0); HEMOGLOBIN 8.3 g/dL (12.0-16.0); LYMPHOCYTES # (AUTO) 0.5 K/uL (0.8-4.8); LYMPHOCYTES % (AUTO) 9.5 % (20.5-51.5); MEAN CORPUSCULAR HEMOGLOBIN 29.4 uug (27.0-31.0); MEAN CORPUSCULAR HGB CONC 32 g/dL (32.0-37.0); MONOCYTES # (AUTO) 0.2 K/uL (0.1-1.30); MONOCYTES % (AUTO) 3.1 % (0.0-11.0); NEUTROPHILS # (AUTO) 4.7 K/uL (1.8-8.9); NEUTROPHILS % (AUTO) 86.8 % (38.5-71.5); PLATELET COUNT (AUTO) 199 K/uL (150-450); RED BLOOD CELL COUNT(AUTO) 2.82 MIL/uL (4.20-5.40); RED CELL DISTRIBUTION WIDTH 18.9 % (11.5-14.5); WHITE BLOOD COUNT (AUTO) 5.4 K/uL (4.0-11.2)
[2016-12-13 05:50] LABS: CREATININE 2.8 mg/dL (0.6-1.3)
[2016-12-13] MEDS ORDERED: BUMETANIDE INJ 2 MG in IV DEXTROSE 5% 42 ML IV ONE (09:30)
--- NOTE | 2016-12-13 09:30 | NUR ---
seen by dr ortega. patient status changed from GOLDIE to CCU status. Addendum: 12/13/16 at 1629 by AUDRA COX RN Amended: Links added. Addendum: 12/13/16 at 1635 by AUDRA COX RN Amended: Links added.
--- NOTE | 2016-12-13 11:00 | NUR ---
seen by dr perez. orders received. Addendum: 12/13/16 at 1640 by AUDRA COX RN Amended: Links added.
[2016-12-13] MEDS ORDERED: ONDANSETRON HCL 4 MG TABLET PO PRN (11:30)
[2016-12-13] MEDS ORDERED: IPRATROPIUM BROMIDE 0.5 MG/2.5 ML NEBU IH PRN (11:30)
[2016-12-13] MEDS: DOCUSATE SODIUM 100 MG CAPSULE PO SCH ×2 (11:30→17:00)
[2016-12-13] MEDS ORDERED: BISACODYL 10 MG SUPP.RECT RC PRN (11:30)
--- NOTE | 2016-12-13 11:30 | NUR ---
2 BM NOTED, PATIENT HAD KAYEXELATE EARLIER, MAURY-ANAL CARE PROVIDED
--- NOTE | 2016-12-13 11:34 | NUR ---
Patient has intermittent shortness of breath and screams loudly. MD paged for possible po ativan.
[2016-12-13 12:12] LABS: *OCCULT BLOOD STOOL POSITIVE (NEGATIVE)
--- NOTE | 2016-12-13 12:30 | NUR ---
talked to dr jordan roberson patient's agitation, shortness of breath. orders received for abgs, accuchek, IV fluid and medication reconciliation to be completed Addendum: 12/13/16 at 1645 by AUDRA COX RN Amended: Links added.
[2016-12-13] MEDS ORDERED: NORMAL SALINE FLUSH 10 ML DISP.SYRIN IV PRN (12:45)
[2016-12-13] MEDS ORDERED: Z GUARD REMEDY PASTE 57 GM TUBE TOP PRN (12:45)
[2016-12-13] MEDS: BLOOD SUGAR DIAGNOSTIC 1 EACH STRIP VI SCH ×3 (12:58→21:00)
[2016-12-13] MEDS: MULTIVIT, IRON, MIN NO. 8, FA TABLET PO SCH (13:00)
[2016-12-13] MEDS: METOPROLOL SUCCINATE XL 50 MG TAB.SR.24H PO SCH (13:00)
[2016-12-13] MEDS: ASCORBIC ACID 500 MG TABLET PO SCH (13:00)
[2016-12-13] MEDS: PANTOPRAZOLE SODIUM 40 MG TABLET.DR PO SCH (13:01)
[2016-12-13 13:13] LABS: ABG HCO3 30.2 mmol/L; ABG PCO2 70.8 mmHg (35.0-45.0); ABG PH 7.248 (7.350-7.450); ABG PO2 80.6 mmHg (75.0-100.0); ABG SITE RIGHT RADIAL; ABG TOTAL HEMOGLOBIN 9.2 G/dL (12.0-16.0); COHb 1.1 % (0.5-1.5); MetHb 0.4 % (0.0-1.5); O2Hb 93.4 % (94.0-97.0); VENT MODE Nasal Cannula
--- NOTE | 2016-12-13 13:15 | NUR ---
PT ABG WAS DRAWN AT THIS TIME. DUE TO RESULTS BIPAP WAS PLACE AT BED SIDE. RN AWARE AND WILL WAIT FOR DR ORDER TO PLACE PT ON BIPAP. WILL CONTINUE TO MONITOR PT. PT REMAINS ON O2.
[2016-12-13 13:30] LABS: *BLOOD, URINE 3+ (NEGATIVE); *CLARITY,URINE CLOUDY (CLEAR); *COLOR,URINE AMBER (YELLOW); *KETONES,URINE TRACE (NEGATIVE); *UROBILINOGEN,URINE 0.2 E.U./dl (NORMAL); LEUKOCYTE ESTERASE ,URINE 3+ (NEGATIVE); NITRITE, URINE NEGATIVE (NEGATIVE); UGLUCOSE NEGATIVE (NEGATIVE)
[2016-12-13] MEDS: SODIUM CHLORIDE 4 MEQ/ML VIAL 77 MEQ in IV 10% DEXTROSE 1,000 ML IV PRN (13:37)
[2016-12-13] MEDS: CHOLECALCIFEROL 1,000 UNIT TABLET PO SCH (13:38)
[2016-12-13] MEDS: DEXTROSE 50% 50 ML DISP.SYRIN IV PRN ×2 (13:45→21:00)
--- NOTE | 2016-12-13 13:45 | NUR ---
1 amp of D50% given for bs 24. IV D10% 1/2 NS started at 20ml/hr IV via ANDREW midline Addendum: 12/13/16 at 1652 by AUDRA COX RN Amended: Links added.
[2016-12-13 13:48] LABS: *BILIRUBIN,URIN NEGATIVE (NEGATIVE)
[2016-12-13 13:50] LABS: *PROTEIN,URINE 3+ (NEGATIVE)
[2016-12-13 14:03] LABS: *CREATININE,URINE 157.1 mg/dL (30-125)
[2016-12-13 14:06] LABS: RBC,URINE TNTC /HPF (0-3); SQUAMOUS EPITHELIAL CELL,UR FEW /HPF (NONE SEEN); WBC,URINE 50-80 /HPF (0-3)
--- NOTE | 2016-12-13 14:11 | NUR ---
WOUND CARE CONSULT: PATIENT SEEN AND SKIN ASSESSMENT DONE. PATIENT SOMNOLENT, LETHARGIC, WITH GENERALIZED BODY EDEMA, BILATERAL LOWER EXTREMITIES WEEPING, INCONTINENT OF STOOLS, HAS F/C, SOPHIA 13, FIRST STEP LOW AIR LOSS MATTRESS IN USE. SEE TODAY'S SKIN ASSESSMENT IN PCS ALONG WITH RECOMMENDATIONS. PATIENT ALSO NOTED WITH BILATERAL LOWER EXTREMITIES BROWN DISCOLORATION, UPPER BACK AND BILATERAL BUTTOCKS BROWN PATCHES WITH PINK SCARRING PRESENT ON ADMISSION. PER NURSING STAFF, PATIENT WITH HISTORY OF [place]. RECOMMEND KEEP SKIN CLEAN AND DRY, MOISTURE PROTECTION WITH Z GUARD, TURN AND REPOSITION EVERY 2 HRS PATIENT CONDITION PERMITS, OFFLOAD BOTH HEELS. ALL DISCUSSED WITH NURSING STAFF. MD IN AGREEMENT WITH PLAN OF CARE. Addendum: 12/13/16 at 1419 by ROCÍO MALLORY WNDNU Amended: Links added.
--- NOTE | 2016-12-13 14:15 | NUR ---
DUE TO PT ABG RESULTS PT WAS PLACE ON BIPAP SETTINGS IPAP 10 EPAP 5 PS 5 RATE 16 FIO2 30%. PT HAS MEDIUM MASK WITH GEL SEAL WITH LEAK OF 52. PT BIPAP ALARMS ON AND AUDIBLE PT TOLERATING BIPAP WELL WILL CONTINUE TO MONITOR PT THROUGHOUT SHIFT.
[2016-12-13] MEDS: ASPIRIN 81 MG TAB.CHEW PO SCH (14:40)
[2016-12-13] MEDS: NORMAL SALINE FLUSH 10 ML DISP.SYRIN IV SCH ×2 (14:40→21:03)
[2016-12-13] MEDS: HYDROCODONE/APAP 5-325MG TABLET PO PRN ×2 (14:41→21:18)
[2016-12-13] MEDS: AMLODIPINE 10 MG TABLET PO SCH (14:41)
[2016-12-13] MEDS: CLOTRIMAZOLE 1% CREAM 30 GM TUBE TOP SCH (16:40)
[2016-12-13] MEDS: METOLAZONE 2.5 MG TABLET PO SCH (16:46)
[2016-12-13] MEDS: CARVEDILOL 12.5 MG TABLET PO SCH (16:47)
--- NOTE | 2016-12-13 17:06 | NUR ---
placed on air mattress, turned and positined, heel and elbows off loaded Addendum: 12/13/16 at 1706 by AUDRA COX RN Amended: Links added. Addendum: 12/13/16 at 1707 by AUDRA COX RN Amended: Links added. Addendum: 12/13/16 at 1709 by AUDRA COX RN Amended: Links added. Addendum: 12/13/16 at 1711 by AUDRA COX RN Amended: Links added.
--- NOTE | 2016-12-13 17:07 | NUR ---
seen by wound care nurse. see recommendations and orders. Addendum: 12/13/16 at 1707 by AUDRA COX RN Amended: Chris added. Addendum: 12/13/16 at 1709 by AUDRA COX RN Amended: Chris added. Addendum: 12/13/16 at 1711 by AUDRA COX RN Amended: Links added.
--- NOTE | 2016-12-13 17:09 | NUR ---
poor urinary response from Bumex. aware. patient remains edematous. stable on bipap but mittens are on otherwise patient removes bipap mask Addendum: 12/13/16 at 1709 by AUDRA COX RN Amended: Links added. Addendum: 12/13/16 at 1711 by AUDRA COX RN Amended: Links added.
--- NOTE | 2016-12-13 17:11 | NUR ---
wound nurse recommended surgical debridement of right groin wound Addendum: 12/13/16 at 1711 by AUDRA COX RN Amended: Links added.
--- NOTE | 2016-12-13 19:25 | NUR ---
Pt rec'd on settings of BIPAP IPAP 10, EPAP 5, resp. rate 16, FIO2-30%. No resp. distress noted at this time. Pt to be monitored throughout the shift. BVM at bedside.
--- NOTE | 2016-12-13 20:49 | NUR ---
Pt removed off BIPAP at this time and placed on 3LNC via bubble humidifier. HEATHER Luna aware and notified.
[2016-12-13] MEDS: Z GUARD REMEDY PASTE 57 GM TUBE TOP SCH (21:00)
[2016-12-13] MEDS: ATORVASTATIN 40 MG TABLET PO SCH (21:18)
[2016-12-14] VITALS (24 sets, daily range): BP systolic 95–147; BP diastolic 45–78
[2016-12-14] MEDS: NORMAL SALINE FLUSH 10 ML DISP.SYRIN IV SCH ×3 (06:00→21:37)
[2016-12-14] MEDS: BLOOD SUGAR DIAGNOSTIC 1 EACH STRIP VI SCH ×4 (06:02→21:00)
[2016-12-14] MEDS: PANTOPRAZOLE SODIUM 40 MG TABLET.DR PO SCH (06:39)
[2016-12-14] MEDS: DOCUSATE SODIUM 100 MG CAPSULE PO SCH ×2 (08:37→17:26)
[2016-12-14] MEDS: ASCORBIC ACID 500 MG TABLET PO SCH (08:38)
[2016-12-14] MEDS: ASPIRIN 81 MG TAB.CHEW PO SCH (08:38)
[2016-12-14] MEDS: AMLODIPINE 10 MG TABLET PO SCH (08:38)
[2016-12-14] MEDS: MULTIVIT, IRON, MIN NO. 8, FA TABLET PO SCH (08:38)
[2016-12-14] MEDS: HYDROCODONE/APAP 5-325MG TABLET PO PRN ×5 (08:38→21:37)
[2016-12-14] MEDS: METOPROLOL SUCCINATE XL 50 MG TAB.SR.24H PO SCH (08:39)
[2016-12-14] MEDS: CARVEDILOL 12.5 MG TABLET PO SCH ×2 (08:39→17:27)
[2016-12-14 08:43] LABS: BASOPHILS % (AUTO) 0.2 % (0.0-2.0); EOSINOPHILS # (AUTO) 0.1 K/uL (0.0-0.7); EOSINOPHILS % (AUTO) 1.1 % (0.0-7.0); HEMATOCRIT 26.4 % (37.0-47.0); HEMOGLOBIN 8.5 g/dL (12.0-16.0); LYMPHOCYTES # (AUTO) 0.7 K/uL (0.8-4.8); LYMPHOCYTES % (AUTO) 7.4 % (20.5-51.5); MEAN CORPUSCULAR HEMOGLOBIN 29.6 uug (27.0-31.0); MEAN CORPUSCULAR HGB CONC 32 g/dL (32.0-37.0); MEAN CORPUSCULAR VOLUME 91.9 fL (81.0-99.0); MONOCYTES # (AUTO) 0.3 K/uL (0.1-1.30); MONOCYTES % (AUTO) 3.2 % (0.0-11.0); NEUTROPHILS # (AUTO) 8.1 K/uL (1.8-8.9); NEUTROPHILS % (AUTO) 88.1 % (38.5-71.5); PLATELET COUNT (AUTO) 227 K/uL (150-450); RED BLOOD CELL COUNT(AUTO) 2.87 MIL/uL (4.20-5.40); RED CELL DISTRIBUTION WIDTH 19.3 % (11.5-14.5); WHITE BLOOD COUNT (AUTO) 9.2 K/uL (4.0-11.2)
[2016-12-14] MEDS: CLOTRIMAZOLE 1% CREAM 30 GM TUBE TOP SCH (09:04)
[2016-12-14] MEDS: CHOLECALCIFEROL 1,000 UNIT TABLET PO SCH (09:04)
[2016-12-14] MEDS: METOLAZONE 2.5 MG TABLET PO SCH ×2 (09:04→17:25)
[2016-12-14] MEDS: Z GUARD REMEDY PASTE 57 GM TUBE TOP SCH ×2 (09:05→21:37)
[2016-12-14 09:23] LABS: ABG BASE EXCESS 1.9 mmol/L; ABG HCO3 30.4 mmol/L; ABG PCO2 74.8 mmHg (35.0-45.0); ABG PH 7.227 (7.350-7.450); ABG PO2 78.9 mmHg (75.0-100.0); ABG SITE RIGHT RADIAL; ABG TOTAL HEMOGLOBIN 8.6 G/dL (12.0-16.0); COHb 1.9 % (0.5-1.5); MetHb 0.5 % (0.0-1.5); VENT MODE Nasal Cannula
[2016-12-14 09:33] LABS: ALBUMIN 2.3 g/dL (3.4-5.0); BILIRUBIN,TOTAL 0.3 mg/dL (0.2-1.0); CALCIUM 7.9 mg/dL (8.5-10.1); MAGNESIUM 2.6 mg/dL (1.8-2.4); POTASSIUM 5.3 mmol/L (3.5-5.1)
[2016-12-14 09:36] LABS: CREATININE 3.3 mg/dL (0.6-1.3)
[2016-12-14 09:40] LABS: PHOSPHOROUS 8.2 mg/dL (2.5-4.9)
--- NOTE | 2016-12-14 09:55 | NUR ---
Pt placed on BiPap post ABG results and per request.. Pt is awake and answers some questions.. BiPap alarms on and functioning normally at this time.. Pt is taking mask off, was restrained, RN removed restraint, and will not use restraints while pt is on BiPap.. Explained to pt that mask needs to stay on for it to be benificial.. Pt continuously takes mask off, unable to leave it on pt.. Placed on 3 Lpm via nasal cannula, SpO2 95%, RN notified..
[2016-12-14] MEDS: BUMETANIDE 1 MG/4 ML VIAL IV SCH ×2 (14:17→21:36)
[2016-12-14] MEDS: CALCIUM CARBONATE 500 MG TABLET PO PRN (20:57)
[2016-12-14] MEDS: ATORVASTATIN 40 MG TABLET PO SCH (21:36)
[2016-12-15] VITALS (22 sets, daily range): BP systolic 120–164; BP diastolic 47–91
[2016-12-15] MEDS: HYDROCODONE/APAP 5-325MG TABLET PO PRN ×4 (02:22→23:37)
[2016-12-15] MEDS: NORMAL SALINE FLUSH 10 ML DISP.SYRIN IV SCH ×3 (06:00→21:51)
[2016-12-15] MEDS: PANTOPRAZOLE SODIUM 40 MG TABLET.DR PO SCH (07:00)
[2016-12-15] MEDS: BLOOD SUGAR DIAGNOSTIC 1 EACH STRIP VI SCH ×4 (07:30→21:50)
[2016-12-15] MEDS: MULTIVIT, IRON, MIN NO. 8, FA TABLET PO SCH (08:43)
[2016-12-15] MEDS: ASCORBIC ACID 500 MG TABLET PO SCH (08:43)
[2016-12-15] MEDS: DOCUSATE SODIUM 100 MG CAPSULE PO SCH ×2 (08:43→17:26)
[2016-12-15] MEDS: AMLODIPINE 10 MG TABLET PO SCH (08:43)
[2016-12-15] MEDS: ASPIRIN 81 MG TAB.CHEW PO SCH (08:43)
[2016-12-15] MEDS: BUMETANIDE 1 MG/4 ML VIAL IV SCH ×2 (08:44→21:51)
[2016-12-15] MEDS: CARVEDILOL 12.5 MG TABLET PO SCH ×2 (08:44→17:27)
[2016-12-15] MEDS: CHOLECALCIFEROL 1,000 UNIT TABLET PO SCH (08:45)
[2016-12-15] MEDS: METOLAZONE 2.5 MG TABLET PO SCH ×2 (08:45→17:26)
[2016-12-15] MEDS: CLOTRIMAZOLE 1% CREAM 30 GM TUBE TOP SCH (08:48)
[2016-12-15] MEDS: Z GUARD REMEDY PASTE 57 GM TUBE TOP SCH ×2 (08:49→21:51)
--- NOTE | 2016-12-15 10:10 | NUR ---
Dr. Lira here to see pt. Full report given. New orders received.
--- NOTE | 2016-12-15 11:45 | NUR ---
Left thoracentesis procedure complete. 100ml of hemodialysis fluid removed. Pt stable and tolerated procedure well.
[2016-12-15] MEDS: SODIUM CHLORIDE 4 MEQ/ML VIAL 77 MEQ in IV 10% DEXTROSE 1,000 ML IV PRN (13:18)
[2016-12-15 15:22] LABS: ALBUMIN 2.1 g/dL (3.4-5.0); BILIRUBIN,TOTAL 0.3 mg/dL (0.2-1.0); CALCIUM 7.8 mg/dL (8.5-10.1); CREATININE 3.5 mg/dL (0.6-1.3); MAGNESIUM 2.6 mg/dL (1.8-2.4); PHOSPHOROUS 7.8 mg/dL (2.5-4.9); POTASSIUM 5.2 mmol/L (3.5-5.1); TOTAL PROTEIN, SERUM 6.7 g/dL (6.4-8.2)
[2016-12-15 15:31] LABS: BASOPHILS % (AUTO) 0.2 % (0.0-2.0); EOSINOPHILS # (AUTO) 0.1 K/uL (0.0-0.7); EOSINOPHILS % (AUTO) 1.2 % (0.0-7.0); HEMOGLOBIN 8.1 g/dL (12.0-16.0); LYMPHOCYTES # (AUTO) 0.8 K/uL (0.8-4.8); LYMPHOCYTES % (AUTO) 10.1 % (20.5-51.5); MEAN CORPUSCULAR HEMOGLOBIN 30.8 uug (27.0-31.0); MEAN CORPUSCULAR HGB CONC 34 g/dL (32.0-37.0); MEAN CORPUSCULAR VOLUME 91.5 fL (81.0-99.0); MONOCYTES # (AUTO) 0.3 K/uL (0.1-1.30); MONOCYTES % (AUTO) 3.7 % (0.0-11.0); NEUTROPHILS # (AUTO) 6.3 K/uL (1.8-8.9); NEUTROPHILS % (AUTO) 84.8 % (38.5-71.5); PLATELET COUNT (AUTO) 176 K/uL (150-450); RED BLOOD CELL COUNT(AUTO) 2.62 MIL/uL (4.20-5.40); RED CELL DISTRIBUTION WIDTH 18.8 % (11.5-14.5); WHITE BLOOD COUNT (AUTO) 7.5 K/uL (4.0-11.2)
--- NOTE | 2016-12-15 15:35 | NUR ---
Dr. Chaudhary here to see pt. Full report given and aware of pt's low urinary output. New orders received.
[2016-12-15 17:24] LABS: ANISOCYTOSIS 2+
[2016-12-15 17:30] LABS: PROTEIN, BODY FLUID 1.6 G/DL
[2016-12-15] MEDS: CALCIUM CARBONATE 500 MG TABLET PO PRN (19:37)
--- NOTE | 2016-12-15 20:00 | NUR ---
Patient on Heparin. Left wrist & forearm area swollen with hematoma. Dr Will notified, mild pressure dressing using foam tape, elevated on two pillows, and ice pack applied. Addendum: 12/16/16 at 0841 by ANIKA SHERMAN RN Please ignore this entry.
[2016-12-15] MEDS: ATORVASTATIN 40 MG TABLET PO SCH (21:51)
[2016-12-16] VITALS (24 sets, daily range): BP systolic 130–166; BP diastolic 54–89
[2016-12-16] MEDS: IPRATROPIUM BROMIDE 0.5 MG/2.5 ML NEBU IH PRN (02:58)
[2016-12-16] MEDS: HYDROCODONE/APAP 5-325MG TABLET PO PRN ×3 (03:37→21:18)
[2016-12-16 05:18] LABS: ALBUMIN 2.1 g/dL (3.4-5.0); BILIRUBIN,TOTAL 0.3 mg/dL (0.2-1.0); CALCIUM 7.7 mg/dL (8.5-10.1); MAGNESIUM 2.6 mg/dL (1.8-2.4); PHOSPHOROUS 7.7 mg/dL (2.5-4.9); POTASSIUM 5.6 mmol/L (3.5-5.1); TOTAL PROTEIN, SERUM 6.8 g/dL (6.4-8.2)
[2016-12-16 05:24] LABS: CREATININE 3.5 mg/dL (0.6-1.3)
[2016-12-16 05:42] LABS: BASOPHILS % (AUTO) 0.2 % (0.0-2.0); EOSINOPHILS # (AUTO) 0.1 K/uL (0.0-0.7); EOSINOPHILS % (AUTO) 0.7 % (0.0-7.0); HEMATOCRIT 24.8 % (37.0-47.0); HEMOGLOBIN 8.1 g/dL (12.0-16.0); LYMPHOCYTES # (AUTO) 0.6 K/uL (0.8-4.8); LYMPHOCYTES % (AUTO) 7.8 % (20.5-51.5); MEAN CORPUSCULAR HEMOGLOBIN 30.2 uug (27.0-31.0); MEAN CORPUSCULAR HGB CONC 33 g/dL (32.0-37.0); MEAN CORPUSCULAR VOLUME 92.6 fL (81.0-99.0); MONOCYTES # (AUTO) 0.1 K/uL (0.1-1.30); NEUTROPHILS # (AUTO) 7.1 K/uL (1.8-8.9); NEUTROPHILS % (AUTO) 90.3 % (38.5-71.5); PLATELET COUNT (AUTO) 187 K/uL (150-450); RED BLOOD CELL COUNT(AUTO) 2.68 MIL/uL (4.20-5.40); RED CELL DISTRIBUTION WIDTH 19.2 % (11.5-14.5); WHITE BLOOD COUNT (AUTO) 7.9 K/uL (4.0-11.2)
[2016-12-16] MEDS: NORMAL SALINE FLUSH 10 ML DISP.SYRIN IV SCH ×3 (06:03→21:53)
[2016-12-16] MEDS: PANTOPRAZOLE SODIUM 40 MG TABLET.DR PO SCH (06:04)
--- NOTE | 2016-12-16 07:30 | NUR ---
RECEIVED PT IN NAD; VSS; ON CARDIAC MONITORING SHOWING SR. PT ON 3LPM NC; PT IS ALERT TO NAME; PT HAS A FC DRAINING MINIMAL AMOUNT OF DARK RED/LILIANA URINE. PT HAS SCD'S ON BLE; PT HAS A TLC ON THE BRITANY. PT ON AN AIR MATTRESS; SEE FLOWCHART FOR SKIN ASSESSMENT W/ DETAILS.
[2016-12-16] MEDS: BLOOD SUGAR DIAGNOSTIC 1 EACH STRIP VI SCH ×4 (07:31→20:55)
[2016-12-16] MEDS: CARVEDILOL 12.5 MG TABLET PO SCH ×2 (08:00→18:00)
[2016-12-16] MEDS: AMLODIPINE 10 MG TABLET PO SCH (09:00)
[2016-12-16] MEDS: CHOLECALCIFEROL 1,000 UNIT TABLET PO SCH (09:15)
[2016-12-16] MEDS ORDERED: SODIUM POLYSTYRENE SULFONATE 15 G/60 ML LIQUID UDC PO ONE (09:15)
[2016-12-16] MEDS: ASCORBIC ACID 500 MG TABLET PO SCH (09:15)
[2016-12-16] MEDS: MULTIVIT, IRON, MIN NO. 8, FA TABLET PO SCH (09:15)
[2016-12-16] MEDS: ASPIRIN 81 MG TAB.CHEW PO SCH (09:15)
[2016-12-16] MEDS: METOLAZONE 2.5 MG TABLET PO SCH ×2 (09:15→17:11)
[2016-12-16] MEDS: DOCUSATE SODIUM 100 MG CAPSULE PO SCH ×2 (09:15→17:11)
[2016-12-16] MEDS: Z GUARD REMEDY PASTE 57 GM TUBE TOP SCH ×2 (09:16→20:49)
[2016-12-16] MEDS: CLOTRIMAZOLE 1% CREAM 30 GM TUBE TOP SCH (09:16)
[2016-12-16] MEDS: BUMETANIDE 1 MG/4 ML VIAL IV SCH ×2 (09:38→20:49)
[2016-12-16 10:07] LABS: A/G RATIO 0.7 (0.7-1.7); ALBUMIN 2.7 g/dL (2.9-4.4); ALPHA-1-GLOBULIN 0.3 g/dL (0.0-0.4); ALPHA-2-GLOBULIN 0.7 g/dL (0.4-1.0); BETA GLOBULIN 0.7 g/dL (0.7-1.3); GLOBULIN, TOTAL 3.8 g/dL (2.2-3.9); M-SPIKE Not Observed g/dL (Not Observed)
[2016-12-16 10:08] LABS: ABG BASE EXCESS -0.2 mmol/L; ABG HCO3 28.5 mmol/L; ABG PCO2 73.4 mmHg (35.0-45.0); ABG PH 7.207 (7.350-7.450); ABG SITE LEFT RADIAL; COHb 0.7 % (0.5-1.5); MetHb 0.4 % (0.0-1.5); O2Hb 88.9 % (94.0-97.0); VENT MODE Nasal Cannula
--- NOTE | 2016-12-16 10:38 | NUR ---
Patient was placed on BiPap with orders settings of Ipap10/ Epap5 Pressure support 5 on 30% FiO2 per ABG results. Patient is awake and responsive. Alarm parameters assessed and are on/audible. Ambu bag at bedside. Will continue to monitor.
--- NOTE | 2016-12-16 12:00 | NUR ---
PT WAS TRANSPORTED TO CT SCAN UNDER ACLS PROTOCOL. PT TOLERATED DIAGNOSTIC STUDIES WELL
--- NOTE | 2016-12-16 13:00 | NUR ---
PT WAS PLACED BACK ON BIPAP; PT TOLERATING SETTINGS.
[2016-12-16] MEDS: SODIUM CHLORIDE 4 MEQ/ML VIAL 77 MEQ in IV 10% DEXTROSE 1,000 ML IV PRN (13:20)
[2016-12-16 14:31] LABS: CALCIUM 7.8 mg/dL (8.5-10.1); CREATININE 3.6 mg/dL (0.6-1.3); POTASSIUM 5.7 mmol/L (3.5-5.1)
--- NOTE | 2016-12-16 15:15 | NUR ---
PT OFF OF BIPAP AND PLACED ON 3LPM NC; PT WANTED TO EAT LUNCH; VSS
--- NOTE | 2016-12-16 16:30 | NUR ---
PT PLACED ON BLANKET WARMER FOR RECTAL TEMP OF 95.9F
--- NOTE | 2016-12-16 18:05 | NUR ---
PT STATES SHE WILL HOLD OFF ON DINNER FOR NOW; BED BATH GIVEN; PT PLACED ON BIPAP ON PREVIOUS SETTINGS. PT TOLERATING WELL
--- NOTE | 2016-12-16 19:28 | NUR ---
Pt rec'd on settings of BIPAP IPAP 10, EPAP 5, resp. rate 16, FIO2-35%. No resp. distress noted at this time. Pt to be monitored throughout the shift. BVM at bedside.
--- NOTE | 2016-12-16 19:30 | NUR ---
Report received. Patient sleeping easily arouses to name. Able to follow simple commands but weak. With generalized edema. Language barrier. On BIPAP with same settings. Assessment completed. Addendum: 12/17/16 at 0049 by JEAN MARIE PATIÑO RN Amended: Links added.
[2016-12-16] MEDS: ATORVASTATIN 40 MG TABLET PO SCH (20:48)
--- NOTE | 2016-12-16 21:15 | NUR ---
Moaning and yelling occasionally. Trying to remove BIPAP mask. Advised. Medicated with George 1 tab. for generalized discomfort. Monitored closely. Addendum: 12/17/16 at 0110 by JEAN MARIE PATIÑO RN Amended: Links added.
--- NOTE | 2016-12-16 23:20 | NUR ---
On and off restless. C/o chest pain 03/17. Skin warm and dry. No EKG changes. Medicated with Morphine IV. Addendum: 12/17/16 at 0113 by JEAN MARIE PATIÑO RN Amended: Links added.
[2016-12-16] MEDS: MORPHINE SULFATE 2 MG/1 ML DISP.SYRIN IV PRN (23:26)
[2016-12-17] VITALS (24 sets, daily range): BP systolic 110–167; BP diastolic 48–89
--- NOTE | 2016-12-17 02:15 | NUR ---
Patient restless, with grunting respirations and taking off BIPAP mask. Placed on O2 NC 4 L. Monitored closely. Addendum: 12/17/16 at 0329 by JEAN MARIE PATIÑO RN Amended: Links added.
--- NOTE | 2016-12-17 02:15 | NUR ---
Pt removed from BIPAP at this time due to restlessness. Pt is on 4LNC at this time. No resp. distress noted
--- NOTE | 2016-12-17 03:10 | NUR ---
O2 sat above 99-100% on NC O2. Patient grimacing and c/o pain. Medicated with [place]. Will continue to monitor. Addendum: 12/17/16 at 0332 by JEAN MARIE PATIÑO RN Amended: Links added.
[2016-12-17] MEDS: HYDROCODONE/APAP 5-325MG TABLET PO PRN ×2 (03:12→08:34)
[2016-12-17 05:21] LABS: EOSINOPHILS % (AUTO) 0.4 % (0.0-7.0); HEMATOCRIT 25.3 % (37.0-47.0); HEMOGLOBIN 8.4 g/dL (12.0-16.0); LYMPHOCYTES # (AUTO) 0.8 K/uL (0.8-4.8); LYMPHOCYTES % (AUTO) 7.3 % (20.5-51.5); MEAN CORPUSCULAR HEMOGLOBIN 30.3 uug (27.0-31.0); MEAN CORPUSCULAR HGB CONC 33 g/dL (32.0-37.0); MEAN CORPUSCULAR VOLUME 90.9 fL (81.0-99.0); MONOCYTES # (AUTO) 0.4 K/uL (0.1-1.30); MONOCYTES % (AUTO) 3.6 % (0.0-11.0); NEUTROPHILS # (AUTO) 9.2 K/uL (1.8-8.9); NEUTROPHILS % (AUTO) 88.7 % (38.5-71.5); PLATELET COUNT (AUTO) 187 K/uL (150-450); RED BLOOD CELL COUNT(AUTO) 2.78 MIL/uL (4.20-5.40); RED CELL DISTRIBUTION WIDTH 18.4 % (11.5-14.5); WHITE BLOOD COUNT (AUTO) 10.4 K/uL (4.0-11.2)
[2016-12-17 05:25] LABS: BILIRUBIN,TOTAL 0.3 mg/dL (0.2-1.0); CALCIUM 7.7 mg/dL (8.5-10.1); MAGNESIUM 2.6 mg/dL (1.8-2.4); PHOSPHOROUS 7.8 mg/dL (2.5-4.9); POTASSIUM 5.4 mmol/L (3.5-5.1); TOTAL PROTEIN, SERUM 6.8 g/dL (6.4-8.2)
[2016-12-17 05:32] LABS: CREATININE 3.5 mg/dL (0.6-1.3)
[2016-12-17] MEDS: NORMAL SALINE FLUSH 10 ML DISP.SYRIN IV SCH ×3 (05:56→21:44)
--- NOTE | 2016-12-17 06:00 | NUR ---
O2 sat above 94% on 4 L NC. Patient slept poorly during the night. Had [place] tabx2 and Morphine 2 mg IV. Addendum: 12/17/16 at 0643 by JEAN MARIE PATIÑO RN Amended: Links added.
[2016-12-17] MEDS: PANTOPRAZOLE SODIUM 40 MG TABLET.DR PO SCH (06:25)
[2016-12-17] MEDS: BLOOD SUGAR DIAGNOSTIC 1 EACH STRIP VI SCH ×4 (07:00→21:00)
--- NOTE | 2016-12-17 08:00 | NUR ---
patient moaning of pain touching chest. confused and unable to communicate well as she speaks missael. whole body swollen . jimenez in [place] with dark dasha urine. iv infusing well . 0830 assisted and ate 25 % of b'fast. able to swallow medications well but unable to chew hard food.1000 had 1 soft brown bm and kept clean. medicated earlier with norco and now better with pain.
[2016-12-17] MEDS: CARVEDILOL 12.5 MG TABLET PO SCH ×2 (08:21→17:29)
[2016-12-17] MEDS: ASPIRIN 81 MG TAB.CHEW PO SCH (08:32)
[2016-12-17] MEDS: BUMETANIDE 1 MG/4 ML VIAL IV SCH ×2 (08:32→21:44)
[2016-12-17] MEDS: DOCUSATE SODIUM 100 MG CAPSULE PO SCH ×2 (08:32→17:28)
[2016-12-17] MEDS: AMLODIPINE 10 MG TABLET PO SCH (08:32)
[2016-12-17] MEDS: METOLAZONE 2.5 MG TABLET PO SCH ×2 (08:33→21:45)
[2016-12-17] MEDS: MULTIVIT, IRON, MIN NO. 8, FA TABLET PO SCH (08:33)
[2016-12-17] MEDS: CHOLECALCIFEROL 1,000 UNIT TABLET PO SCH (08:33)
[2016-12-17] MEDS: ASCORBIC ACID 500 MG TABLET PO SCH (08:33)
[2016-12-17] MEDS: CALCIUM CARBONATE 500 MG TABLET PO PRN (08:34)
[2016-12-17] MEDS: Z GUARD REMEDY PASTE 57 GM TUBE TOP SCH ×2 (10:23→21:45)
[2016-12-17] MEDS: CLOTRIMAZOLE 1% CREAM 30 GM TUBE TOP SCH (10:24)
[2016-12-17 10:35] LABS: ABG BASE EXCESS -0.6 mmol/L; ABG HCO3 27.4 mmol/L; ABG PCO2 67.6 mmHg (35.0-45.0); ABG PH 7.225 (7.350-7.450); ABG PO2 78.7 mmHg (75.0-100.0); ABG SITE RIGHT RADIAL; ABG TOTAL HEMOGLOBIN 7.6 G/dL (12.0-16.0); COHb 1.4 % (0.5-1.5); MetHb 0.7 % (0.0-1.5); O2Hb 92.2 % (94.0-97.0); VENT MODE Nasal Cannula
--- NOTE | 2016-12-17 12:00 | NUR ---
appetite poor. reposition q 2 hrs .moans on and off then goes back to sleep.
[2016-12-17] MEDS: SODIUM CHLORIDE 4 MEQ/ML VIAL 77 MEQ in IV 10% DEXTROSE 1,000 ML IV PRN (12:52)
[2016-12-17 13:20] LABS: HCV AB 0.2 s/co ratio (0.0-0.9); HEPATITIS B SURFACE AB Non Reactive (.); HEPATITIS B SURFACE AG Negative (Negative)
[2016-12-17] MEDS: MORPHINE SULFATE 2 MG/1 ML DISP.SYRIN IV PRN ×3 (13:30→21:00)
[2016-12-17 14:20] LABS: PTH, INTACT 125 pg/mL (15-65)
[2016-12-17 19:23] LABS: *ANTI-SCLERODERMA-70 AB <0.2 AI (0.0-0.9); *RNP ANTIBODIES 0.5 AI (0.0-0.9); *SJOGREN'S ANTI-SS-A <0.2 AI (0.0-0.9); *SJOGREN'S ANTI-SS-B <0.2 AI (0.0-0.9); *SMITH ANTIBODIES <0.2 AI (0.0-0.9); ANTI-DNA(DS) AB, QN 1 IU/mL (0-9); ANTI-NUCLEAR AB DIRECT Negative (Negative)
[2016-12-17] MEDS: ATORVASTATIN 40 MG TABLET PO SCH (21:45)
[2016-12-18] VITALS (39 sets, daily range): BP systolic 73–155; BP diastolic 30–68
[2016-12-18] MEDS: MORPHINE SULFATE 4 MG/1 ML DISP.SYRIN IV PRN ×2 (01:09→07:30)
[2016-12-18] MEDS: IPRATROPIUM BROMIDE 0.5 MG/2.5 ML NEBU IH PRN (04:33)
[2016-12-18 05:28] LABS: CALCIUM 7.8 mg/dL (8.5-10.1); MAGNESIUM 2.5 mg/dL (1.8-2.4); POTASSIUM 5.4 mmol/L (3.5-5.1)
[2016-12-18 05:32] LABS: CREATININE 3.6 mg/dL (0.6-1.3)
[2016-12-18 05:34] LABS: PHOSPHOROUS 8.4 mg/dL (2.5-4.9)
[2016-12-18 05:52] LABS: EOSINOPHILS # (AUTO) 0.1 K/uL (0.0-0.7); HEMATOCRIT 23.7 % (37.0-47.0); HEMOGLOBIN 7.9 g/dL (12.0-16.0); LYMPHOCYTES # (AUTO) 0.6 K/uL (0.8-4.8); LYMPHOCYTES % (AUTO) 7.6 % (20.5-51.5); MEAN CORPUSCULAR HEMOGLOBIN 30.5 uug (27.0-31.0); MEAN CORPUSCULAR HGB CONC 33 g/dL (32.0-37.0); MEAN CORPUSCULAR VOLUME 91.6 fL (81.0-99.0); MONOCYTES # (AUTO) 0.2 K/uL (0.1-1.30); MONOCYTES % (AUTO) 2.9 % (0.0-11.0); NEUTROPHILS % (AUTO) 88.5 % (38.5-71.5); PLATELET COUNT (AUTO) 173 K/uL (150-450); RED BLOOD CELL COUNT(AUTO) 2.59 MIL/uL (4.20-5.40); RED CELL DISTRIBUTION WIDTH 18.8 % (11.5-14.5); WHITE BLOOD COUNT (AUTO) 7.9 K/uL (4.0-11.2)
[2016-12-18] MEDS: PANTOPRAZOLE SODIUM 40 MG TABLET.DR PO SCH (06:13)
[2016-12-18] MEDS: NORMAL SALINE FLUSH 10 ML DISP.SYRIN IV SCH ×3 (06:13→21:49)
--- NOTE | 2016-12-18 07:45 | NUR ---
DOCTOR SANTANA IN UNIT TO INSERT DIALYSIS CATHETER PLACEMENT.
[2016-12-18] MEDS: BLOOD SUGAR DIAGNOSTIC 1 EACH STRIP VI SCH ×4 (08:15→21:00)
--- NOTE | 2016-12-18 08:30 | NUR ---
DR LANTIGUA IN UNIT ROUNDING ON PATIENT.
[2016-12-18] MEDS: ASPIRIN 81 MG TAB.CHEW PO SCH (08:46)
[2016-12-18] MEDS: AMLODIPINE 10 MG TABLET PO SCH (08:46)
[2016-12-18] MEDS: ASCORBIC ACID 500 MG TABLET PO SCH (08:47)
[2016-12-18] MEDS: BUMETANIDE 1 MG/4 ML VIAL IV SCH ×2 (08:47→20:53)
[2016-12-18] MEDS: MULTIVIT, IRON, MIN NO. 8, FA TABLET PO SCH (08:47)
[2016-12-18] MEDS: DOCUSATE SODIUM 100 MG CAPSULE PO SCH ×2 (08:47→17:00)
[2016-12-18] MEDS: CARVEDILOL 12.5 MG TABLET PO SCH ×2 (08:47→17:38)
[2016-12-18] MEDS: CHOLECALCIFEROL 1,000 UNIT TABLET PO SCH (08:53)
[2016-12-18] MEDS: METOLAZONE 2.5 MG TABLET PO SCH ×2 (08:53→21:04)
[2016-12-18] MEDS: CLOTRIMAZOLE 1% CREAM 30 GM TUBE TOP SCH (08:55)
[2016-12-18] MEDS: Z GUARD REMEDY PASTE 57 GM TUBE TOP SCH ×2 (08:55→20:54)
[2016-12-18] MEDS ORDERED: HEPARIN SODIUM,PORCINE 10,000 UNITS/10 ML VIAL IVP ONE (09:00)
[2016-12-18 10:47] LABS: ABG HCO3 29.6 mmol/L; ABG PCO2 66.7 mmHg (35.0-45.0); ABG PH 7.265 (7.350-7.450); ABG PO2 146.9 mmHg (75.0-100.0); ABG SITE RIGHT RADIAL; ABG TOTAL HEMOGLOBIN 7.8 G/dL (12.0-16.0); COHb 1.5 % (0.5-1.5); MetHb 0.7 % (0.0-1.5); O2Hb 97.4 % (94.0-97.0); VENT MODE Nasal Cannula
--- NOTE | 2016-12-18 11:00 | NUR ---
RESPIRATORY DEPRESSION. PATIENT ABG RESULTS CO2 HIGH. PLACED BACK ON BIPAP
--- NOTE | 2016-12-18 13:50 | NUR ---
BIPAP REMOVED PLACED BACK ON 3L NC. PATIENT KEEPS PULLING OFF BIPAP.
--- NOTE | 2016-12-18 14:45 | NUR ---
DIALYSIS NURSE IN UNIT TO START DIALYSIS. DOCTOR RIGOBERTO AT BEDSIDE ROUNDING
[2016-12-18] MEDS: SODIUM CHLORIDE 4 MEQ/ML VIAL 77 MEQ in IV 10% DEXTROSE 1,000 ML IV PRN (14:51)
[2016-12-18] MEDS ORDERED: ALBUMIN HUMAN 25% 100 ML IV ONE ×2 (15:00→15:30)
--- NOTE | 2016-12-18 16:10 | NUR ---
PAGED DOCTOR JAILYN FOR PRESSOR FOR BP SUPPORT WHILE ON DIALYSIS.
--- NOTE | 2016-12-18 16:20 | NUR ---
DOCTOR GRIFFIN CALLED BACK FOR PRESSOR SUPPORT WHILE ON DIALYSIS AND HOLD COREG TONIGHT DOSE
[2016-12-18] MEDS: NOREPINEPHRINE BITARTRATE 8 MG in IV DEXTROSE 5% 500 ML IV PRN ×2 (16:30→20:52)
--- NOTE | 2016-12-18 17:37 | NUR ---
PATIENT UNABLE TO TAKE MEDS, RESTLESS NOT FOLLOWING COMMANDS AND IS ON BIPAP, IS HIGH RISK FOR ASPIRATION.
--- NOTE | 2016-12-18 17:39 | NUR ---
COREG HELD PER DOCTOR GRIFFIN POST DIALYSIS, PATIENT WAS ON VASOPRESSOR SUPPORT WHILE ON DIALYSIS, WEANING OFF.
--- NOTE | 2016-12-18 19:20 | NUR ---
Pt received on BIPAP with settings of IPAP 10, EPAP 5, respiratory rate of 16, FiO2 35%. Removed and re-adjusted BIPAP mask, no redness on skin noted around mask at this time. Protecta-gel in place. No signs of respiratory distress noted. Saturation is 95%. BIPAP alarms are set, functioning and audible. Ambu-bag at bedside. Will continue to monitor pt throughout shift.
--- NOTE | 2016-12-18 19:30 | NUR ---
Report received. Patient lethargic, arouses to name calls. With generalized weakness. On BIPAP with settings as follows: I/E=10/5 rate=16 FIO2=35%. Assessment done. Turned and repositioned. HOB elevated above 30 degrees. Hypothermic. Marlo bolaños turned on. Addendum: 12/18/16 at 2247 by JEAN MARIE PATIÑO RN Amended: Links added.
--- NOTE | 2016-12-18 20:30 | NUR ---
Patient moaning and yelling. Mildly agitated and removed BIPAP mask. Advised. Placed on O2 4L NC. Sat above 96%. Will monitor. Addendum: 12/18/16 at 2244 by JEAN MARIE PATIÑO RN Amended: Links added.
--- NOTE | 2016-12-18 20:52 | NUR ---
BP 85/43. EKG: SB rate 50's. Levophed drip started @ 1 mcg/min. Sat remains above 96% on O2 4 L NC. Patient sleeping but easily arouses to name. Able to take po meds well. Addendum: 12/18/16 at 2252 by JEAN MARIE PATIÑO RN Amended: Links added. Addendum: 12/18/16 at 2254 by JEAN MARIE PATIÑO RN Amended: Links added.
[2016-12-18] MEDS: ATORVASTATIN 40 MG TABLET PO SCH (20:54)
--- NOTE | 2016-12-18 23:00 | NUR ---
Patient agitated, screaming and mumbling. Confirmed pain. Medicated with Morphine IV. Etta ROMERO from 2nd floor requested to interpret. Patient asking to call ambulance to take her to ICU. She stated as per mill attendant that she doesn't feel well. C/o stomach discomfort; medicated. Requesting to speak to her son. Brian Corado called; updated of patient's condition. Able to talk to patient. Addendum: 12/19/16 at 0007 by JEAN MARIE PATIÑO RN Amended: Links added.
[2016-12-18] MEDS: MORPHINE SULFATE 2 MG/1 ML DISP.SYRIN IV PRN (23:15)
[2016-12-18] MEDS: CALCIUM CARBONATE 500 MG TABLET PO PRN (23:17)
[2016-12-19] VITALS (55 sets, daily range): BP systolic 87–136; BP diastolic 37–66
--- NOTE | 2016-12-19 | NUR ---
Sleeping now. Levophed drip remains at 1 mcg/min for BP support. Sat 99-100%. Addendum: 12/19/16 at 0009 by JEAN MARIE PATIÑO RN Amended: Links added.
--- NOTE | 2016-12-19 00:20 | NUR ---
Asleep; respirations shallow. Sat remains 99-100%. Rt called. Will resume BIPAP. Addendum: 12/19/16 at 0055 by JEAN MARIE PATIÑO RN Amended: Links added.
--- NOTE | 2016-12-19 00:25 | NUR ---
Pt placed back on BIPAP with settings of IPAP 10, EPAP 5, respiratory rate of 16, FiO2 35%. Protecta-gel in place. Pt tolerating BIPAP and mask well at this time. HEATHER Fontaine at bedside. Will continue to monitor pt throughout shift.
--- NOTE | 2016-12-19 02:30 | NUR ---
Patient awake and started yelling and screaming again. Removed BIPAP mask. Turned and repositioned. Medicated with Morphine IV. Placed on 4 L NC O2.
[2016-12-19] MEDS: MORPHINE SULFATE 2 MG/1 ML DISP.SYRIN IV PRN (02:42)
--- NOTE | 2016-12-19 03:15 | NUR ---
Levophed drip increased to 2 mcg/min. BPs monitored closely. Addendum: 12/19/16 at 0741 by JEAN MARIE PATIÑO RN Amended: Links added.
[2016-12-19 05:06] LABS: ALBUMIN 2.6 g/dL (3.4-5.0); BILIRUBIN,TOTAL 0.4 mg/dL (0.2-1.0); CALCIUM 7.9 mg/dL (8.5-10.1); MAGNESIUM 2.4 mg/dL (1.8-2.4); POTASSIUM 4.4 mmol/L (3.5-5.1); TOTAL PROTEIN, SERUM 6.5 g/dL (6.4-8.2)
[2016-12-19 05:19] LABS: BASOPHILS % (AUTO) 0.1 % (0.0-2.0); MONOCYTES # (AUTO) 0.2 K/uL (0.1-1.30)
[2016-12-19 05:21] LABS: EOSINOPHILS % (AUTO) 0.4 % (0.0-7.0); HEMATOCRIT 21.4 % (37.0-47.0); LYMPHOCYTES # (AUTO) 0.5 K/uL (0.8-4.8); LYMPHOCYTES % (AUTO) 6.6 % (20.5-51.5); MEAN CORPUSCULAR HEMOGLOBIN 30.7 uug (27.0-31.0); MEAN CORPUSCULAR HGB CONC 33 g/dL (32.0-37.0); MONOCYTES % (AUTO) 1.9 % (0.0-11.0); NEUTROPHILS # (AUTO) 7.5 K/uL (1.8-8.9); PLATELET COUNT (AUTO) 146 K/uL (150-450); RED CELL DISTRIBUTION WIDTH 18.8 % (11.5-14.5); WHITE BLOOD COUNT (AUTO) 8.2 K/uL (4.0-11.2)
[2016-12-19 05:23] LABS: HEMOGLOBIN 7.2 g/dL (12.0-16.0); RED BLOOD CELL COUNT(AUTO) 2.33 MIL/uL (4.20-5.40)
[2016-12-19 05:25] LABS: CREATININE 2.9 mg/dL (0.6-1.3)
--- NOTE | 2016-12-19 05:50 | NUR ---
Patient awake, agitated. Deepa. "Pain, pain!" Medicated with Morphine IV. O2 sat remains above 94% on 4 L NC. Addendum: 12/19/16 at 0738 by JEAN MARIE PATIÑO RN Amended: Links added. Addendum: 12/19/16 at 0741 by JEAN MARIE PATIÑO RN Amended: Links added.
[2016-12-19] MEDS: MORPHINE SULFATE 4 MG/1 ML DISP.SYRIN IV PRN ×2 (05:58→20:58)
[2016-12-19] MEDS: NORMAL SALINE FLUSH 10 ML DISP.SYRIN IV SCH ×3 (05:59→22:11)
[2016-12-19 06:06] LABS: COMPLEMENT, C3 SERUM 60 mg/dL (82-167); COMPLEMENT, C4 SERUM 14 mg/dL (14-44)
[2016-12-19] MEDS: PANTOPRAZOLE SODIUM 40 MG TABLET.DR PO SCH (06:44)
--- NOTE | 2016-12-19 07:00 | NUR ---
Sleeping easily arouses to name calls. Able to take po med well.
[2016-12-19] MEDS: BLOOD SUGAR DIAGNOSTIC 1 EACH STRIP VI SCH ×4 (07:29→21:32)
--- NOTE | 2016-12-19 07:30 | NUR ---
Calls placed to Dr. Corey's exchange re: patient's H/H. Awaiting for call back. Endorsed to Gentry ROMERO.
--- NOTE | 2016-12-19 08:00 | NUR ---
Pt received resting and dozing off in bed with fall precautions and safety measures maintained. air sampling and monitoring and alarms working properly wnl. Pt on 4L NC. IV Levophed and IVF infusing as ordered. Pt stable and nad noted.
--- NOTE | 2016-12-19 08:22 | NUR ---
Dr. Chaudhary here to see pt. Full report given. New orders received.
[2016-12-19] MEDS: DOCUSATE SODIUM 100 MG CAPSULE PO SCH ×2 (08:57→15:58)
[2016-12-19] MEDS: MULTIVIT, IRON, MIN NO. 8, FA TABLET PO SCH (08:57)
[2016-12-19] MEDS: CARVEDILOL 12.5 MG TABLET PO SCH (08:57)
[2016-12-19] MEDS: ASCORBIC ACID 500 MG TABLET PO SCH (08:57)
[2016-12-19] MEDS: ASPIRIN 81 MG TAB.CHEW PO SCH (08:57)
[2016-12-19] MEDS: CHOLECALCIFEROL 1,000 UNIT TABLET PO SCH (08:57)
[2016-12-19] MEDS: METOLAZONE 2.5 MG TABLET PO SCH (08:58)
[2016-12-19] MEDS: CLOTRIMAZOLE 1% CREAM 30 GM TUBE TOP SCH (08:58)
[2016-12-19] MEDS: Z GUARD REMEDY PASTE 57 GM TUBE TOP SCH ×2 (08:59→20:50)
--- NOTE | 2016-12-19 09:33 | NUR ---
Telephone consent for blood transfusion signed by Mak (son): . Son alert and oriented during our conversation over the telephone and is aware of pt's need for blood transfusion.
[2016-12-19 09:56] LABS: ABG BASE EXCESS -1.1 mmol/L; ABG HCO3 28.5 mmol/L; ABG PCO2 86.7 mmHg (35.0-45.0); ABG PH 7.134 (7.350-7.450); ABG PO2 63.9 mmHg (75.0-100.0); ABG SITE RIGHT RADIAL; ABG TOTAL HEMOGLOBIN 7.5 G/dL (12.0-16.0); COHb 1.5 % (0.5-1.5); MetHb 0.6 % (0.0-1.5); O2Hb 86.5 % (94.0-97.0); VENT MODE Nasal Cannula
--- NOTE | 2016-12-19 11:23 | NUR ---
underliner here to see pt for dialysis at the bedside.
--- NOTE | 2016-12-19 11:59 | NUR ---
1st unit of PRBC started with dialysis. Will closely monitor pt for any adverse transfusion reactions.
--- NOTE | 2016-12-19 12:15 | NUR ---
Dr. Lira here to see pt. Full report given. New orders received.
--- NOTE | 2016-12-19 12:30 | NUR ---
Post rescue breathing for pt with BVM at 15 Lpm.. Pt being moved from CCU 01 to CCU 05, lathargic when move started, placed on nasal cannula and became unconscious and difficult to arouse.. Repositioned pt and began rescue breathing with BVM, Brandon RN and Helen RN at bedside, placed on monitor, low BP, Low SpO2, see RN notes.. Pt began to open eyes, good color return, placed back on BiPap, SpO2 >92%.. Will continue to monitor..
--- NOTE | 2016-12-19 12:47 | NUR ---
1st unit of PRBC completed. Pt tolerated blood transfusion well and no adverse reactions noted or reported from the pt. 2nd unit of PRBC started. Will continue to monitor pt.
--- NOTE | 2016-12-19 13:25 | NUR ---
2nd unit of PRBC completed. Pt tolerated blood transfusion well and no adverse reactions noted or reported from the pt.
--- NOTE | 2016-12-19 14:19 | NUR ---
Dialysis complete. 2.5L of hemodialysis fluid removed. Pt stable and nad noted upon completion of dialysis.
[2016-12-19] MEDS: SODIUM CHLORIDE 4 MEQ/ML VIAL 77 MEQ in IV 10% DEXTROSE 1,000 ML IV PRN (14:31)
[2016-12-19] MEDS: NOREPINEPHRINE BITARTRATE 8 MG in IV DEXTROSE 5% 500 ML IV PRN (16:13)
--- NOTE | 2016-12-19 18:50 | NUR ---
End of shift: Pt received resting and dozing off in bed with fall precautions and safety measures maintained. monitoring tech and alarms working properly wnl. Pt on 2L NC and satting wnl. IV Levophed off since 1600 and IVF infusing as ordered. Pt stable and nad noted.
[2016-12-19] MEDS: ATORVASTATIN 40 MG TABLET PO SCH (20:50)
[2016-12-20] VITALS (24 sets, daily range): BP systolic 114–159; BP diastolic 48–83
[2016-12-20] MEDS: MORPHINE SULFATE 4 MG/1 ML DISP.SYRIN IV PRN ×3 (01:00→21:19)
[2016-12-20 04:58] LABS: BASOPHILS % (AUTO) 0.2 % (0.0-2.0); EOSINOPHILS # (AUTO) 0.1 K/uL (0.0-0.7); EOSINOPHILS % (AUTO) 1.2 % (0.0-7.0); HEMATOCRIT 29.7 % (37.0-47.0); LYMPHOCYTES # (AUTO) 0.6 K/uL (0.8-4.8); LYMPHOCYTES % (AUTO) 7.3 % (20.5-51.5); MEAN CORPUSCULAR HEMOGLOBIN 28.7 uug (27.0-31.0); MEAN CORPUSCULAR HGB CONC 33 g/dL (32.0-37.0); MONOCYTES # (AUTO) 0.1 K/uL (0.1-1.30); MONOCYTES % (AUTO) 1.7 % (0.0-11.0); NEUTROPHILS # (AUTO) 7.5 K/uL (1.8-8.9); NEUTROPHILS % (AUTO) 89.6 % (38.5-71.5); PLATELET COUNT (AUTO) 126 K/uL (150-450); RED BLOOD CELL COUNT(AUTO) 3.38 MIL/uL (4.20-5.40); RED CELL DISTRIBUTION WIDTH 19.3 % (11.5-14.5); WHITE BLOOD COUNT (AUTO) 8.3 K/uL (4.0-11.2)
[2016-12-20 05:02] LABS: HEMOGLOBIN 9.7 g/dL (12.0-16.0)
[2016-12-20 05:06] LABS: ALBUMIN 2.6 g/dL (3.4-5.0); BILIRUBIN,TOTAL 0.5 mg/dL (0.2-1.0); CALCIUM 7.8 mg/dL (8.5-10.1); MAGNESIUM 2.2 mg/dL (1.8-2.4); PHOSPHOROUS 5.9 mg/dL (2.5-4.9); POTASSIUM 3.7 mmol/L (3.5-5.1); TOTAL PROTEIN, SERUM 6.7 g/dL (6.4-8.2)
[2016-12-20 05:13] LABS: CREATININE 2.6 mg/dL (0.6-1.3)
[2016-12-20] MEDS: NORMAL SALINE FLUSH 10 ML DISP.SYRIN IV SCH ×3 (06:13→21:12)
[2016-12-20] MEDS: BLOOD SUGAR DIAGNOSTIC 1 EACH STRIP VI SCH ×4 (07:30→21:11)
--- NOTE | 2016-12-20 08:00 | NUR ---
Pt received resting and dozing off in bed with fall precautions and safety measures maintained. teletypesetter monitor and alarms working properly wnl. Pt on 2L NC. IVF infusing as ordered. Pt stable and nad noted.
[2016-12-20] MEDS: MULTIVIT, IRON, MIN NO. 8, FA TABLET PO SCH (08:50)
[2016-12-20] MEDS: ASPIRIN 81 MG TAB.CHEW PO SCH (08:50)
[2016-12-20] MEDS: CHOLECALCIFEROL 1,000 UNIT TABLET PO SCH (08:50)
[2016-12-20] MEDS: PANTOPRAZOLE SODIUM 40 MG TABLET.DR PO SCH (08:50)
[2016-12-20] MEDS: ASCORBIC ACID 500 MG TABLET PO SCH (08:50)
[2016-12-20] MEDS: DOCUSATE SODIUM 100 MG CAPSULE PO SCH ×2 (08:50→16:54)
[2016-12-20] MEDS: Z GUARD REMEDY PASTE 57 GM TUBE TOP SCH ×2 (08:53→21:11)
[2016-12-20] MEDS: CLOTRIMAZOLE 1% CREAM 30 GM TUBE TOP SCH (08:55)
[2016-12-20 09:22] LABS: ABG BASE EXCESS 1.6 mmol/L; ABG HCO3 31.3 mmol/L; ABG PCO2 82.4 mmHg (35.0-45.0); ABG PH 7.198 (7.350-7.450); ABG PO2 74.4 mmHg (75.0-100.0); ABG SITE RIGHT RADIAL; ABG TOTAL HEMOGLOBIN 10.8 G/dL (12.0-16.0); COHb 1.6 % (0.5-1.5); MetHb 0.4 % (0.0-1.5); O2Hb 91.7 % (94.0-97.0); VENT MODE Nasal Cannula
--- NOTE | 2016-12-20 09:35 | NUR ---
ABG results reported to HEATHER Rinaldi. Pt placed back on BIPAP with previous settings. Protecta-gel in place. Good skin integrity noted. BIPAP alarm parameters checked, on and audible. Bag/valve/mask at bedside. Will continue to monitor.
--- NOTE | 2016-12-20 10:00 | NUR ---
instructional media services technician here at the bedside with the pt for dialysis.
--- NOTE | 2016-12-20 12:09 | NUR ---
Dialysis complete. 3L of hemodialysis fluid removed. Pt stable and nad noted upon completion of dialysis.
--- NOTE | 2016-12-20 13:00 | NUR ---
Pt transferred to bed-3. BiPAP off and pt placed back on 2L NC for lunch. Pt stable and nad noted upon transfer.
--- NOTE | 2016-12-20 13:07 | NUR ---
Pt taken off BIPAP and placed on 2LPM nasal cannula for feeding by HEATHER Rinaldi. No SOB noted. SpO2-99%
--- NOTE | 2016-12-20 14:00 | NUR ---
Pt placed back on BiPAP with settings as follows: 15/5, rate of 16, and 30% FiO2. Pt stable and tolerating BiPAP nad noted.
--- NOTE | 2016-12-20 14:00 | NUR ---
Pt placed back on BIPAP with previous settings. Protecta-gel in place. Tolerating settings well. SpO2-99%
[2016-12-20] MEDS: SODIUM CHLORIDE 4 MEQ/ML VIAL 77 MEQ in IV 10% DEXTROSE 1,000 ML IV PRN (15:23)
--- NOTE | 2016-12-20 16:10 | NUR ---
Dr. Lira here to see pt. Full report given. New orders received.
--- NOTE | 2016-12-20 18:45 | NUR ---
End of shift: Pt resting awake and alert in bed with fall precautions and safety measures maintained. echo vasc tech and alarms working properly wnl. Pt on 2L NC. IVF infusing as ordered. Standby BiPAP machine at the bedside. Pt stable and nad noted.
[2016-12-20] MEDS: ATORVASTATIN 40 MG TABLET PO SCH (21:11)
[2016-12-21] VITALS (23 sets, daily range): BP systolic 132–169; BP diastolic 62–90
--- NOTE | 2016-12-21 02:26 | NUR ---
Due to MD order pt placed on BiPAP with the following settings of I-15, E-5, PS-10, RR-16, FIO2-30%. Present BiPAP settings pt tolerated well. Protecta gel placed under pt's mask. Alarms on and audible.
[2016-12-21] MEDS: MORPHINE SULFATE 4 MG/1 ML DISP.SYRIN IV PRN (02:32)
[2016-12-21 04:45] LABS: BASOPHILS % (AUTO) 0.2 % (0.0-2.0); EOSINOPHILS # (AUTO) 0.1 K/uL (0.0-0.7); EOSINOPHILS % (AUTO) 1.4 % (0.0-7.0); HEMOGLOBIN 9.9 g/dL (10.9-14.3); LYMPHOCYTES # (AUTO) 0.7 K/uL (40.0-85.0); LYMPHOCYTES % (AUTO) 9.2 % (20.5-51.5); MEAN CORPUSCULAR HEMOGLOBIN 29.1 uug (24.7-32.8); MEAN CORPUSCULAR HGB CONC 33 g/dL (32.3-35.6); MONOCYTES # (AUTO) 0.2 K/uL (2.0-10.0); MONOCYTES % (AUTO) 2.2 % (0.0-11.0); NEUTROPHILS # (AUTO) 6.8 K/uL (1.8-8.9); PLATELET COUNT (AUTO) 119 K/uL (179-408); RED BLOOD CELL COUNT(AUTO) 3.41 MIL/uL (3.63-4.92); RED CELL DISTRIBUTION WIDTH 19.2 % (12.3-17.7); WHITE BLOOD COUNT (AUTO) 7.8 K/uL (3.8-11.8)
[2016-12-21 04:57] LABS: CALCIUM 8.2 mg/dL (8.5-10.1); MAGNESIUM 2.1 mg/dL (1.8-2.4); PHOSPHOROUS 4.4 mg/dL (2.5-4.9); POTASSIUM 3.8 mmol/L (3.5-5.1)
[2016-12-21 05:02] LABS: CREATININE 2.3 mg/dL (0.6-1.3)
[2016-12-21] MEDS: NORMAL SALINE FLUSH 10 ML DISP.SYRIN IV SCH ×3 (06:10→21:33)
--- NOTE | 2016-12-21 07:30 | NUR ---
RECIEVED LYING IN BED WITH HOB UP 45DEGREES. PT IS LETHARGIC BUT AROUSABLE TO CALL. SR ON THE MONITOR. MAIN IVF IS INFUSING WELL VIA THE PICC LINE ON THE LEFT UPPER ARM. PT HAS A SUBCLAVIAN LINE LEFT UPPER CHEST FOR DIALYSIS ACCESS. SLIGHTLY BLEEDING AROUND THE SITE BUT NOT OOZING. DRESSING INPLACE. GENERALIZED EDEMA, MORE UP IN BOTHE ARMS. AFEBRILE.
[2016-12-21 08:54] LABS: ABG BASE EXCESS 1.5 mmol/L; ABG HCO3 30.9 mmol/L; ABG PCO2 78.2 mmHg (35.0-45.0); ABG PH 7.215 (7.350-7.450); ABG PO2 78.4 mmHg (75.0-100.0); ABG SITE RIGHT RADIAL; COHb 1.6 % (0.5-1.5); MetHb 0.3 % (0.0-1.5); O2Hb 93.1 % (94.0-97.0); VENT MODE Nasal Cannula
--- NOTE | 2016-12-21 09:00 | NUR ---
ABG DONE ORDERED. PCO2 STILL HIGH AT 78. PT PLACED ON HER BIPAP WITH SAME PPREVIOUS SETTING ORDERED. PT IS EATING MODERATE AMOUNT. HAS I VERY SMALL AMOUNT OF SOFT BM. REPOSITION FROM SIDE TO SIDE.
[2016-12-21] MEDS: ASPIRIN 81 MG TAB.CHEW PO SCH (09:47)
[2016-12-21] MEDS: MULTIVIT, IRON, MIN NO. 8, FA TABLET PO SCH (09:47)
[2016-12-21] MEDS: PANTOPRAZOLE SODIUM 40 MG TABLET.DR PO SCH (09:47)
[2016-12-21] MEDS: ASCORBIC ACID 500 MG TABLET PO SCH (09:47)
[2016-12-21] MEDS: DOCUSATE SODIUM 100 MG CAPSULE PO SCH ×2 (09:47→17:31)
[2016-12-21] MEDS: Z GUARD REMEDY PASTE 57 GM TUBE TOP SCH ×2 (09:49→20:40)
[2016-12-21] MEDS: CHOLECALCIFEROL 1,000 UNIT TABLET PO SCH (09:49)
[2016-12-21] MEDS: CLOTRIMAZOLE 1% CREAM 30 GM TUBE TOP SCH (09:50)
[2016-12-21] MEDS: BLOOD SUGAR DIAGNOSTIC 1 EACH STRIP VI SCH ×4 (09:51→20:43)
--- NOTE | 2016-12-21 09:57 | NUR ---
AT 0935, PT WAS PLACED ON BIBAP OF 15/5 RATE OF 16 AND FIO2 30%. PT IS LETHARGIC WITH A HIGH CO2 OF >70. RN, DAMEON PÉREZ IS AWARE AND INFORMED OF THE SETTINGS. WILL MONITOR PT'S CONDITION AND WAIT FOR FURTHER ORDER.
[2016-12-21] MEDS: SODIUM CHLORIDE 4 MEQ/ML VIAL 77 MEQ in IV 10% DEXTROSE 1,000 ML IV PRN (15:38)
--- NOTE | 2016-12-21 18:00 | NUR ---
PT REFUSED BIPAP. PLACED ON NASAL CANNULA AT 2L. NO APPARENT DISTRESS NOTED.
--- NOTE | 2016-12-21 20:00 | NUR ---
RECEIVED PT AWAKE, ALERT, SPEAKS & UNDERSTAND [place] LANGUAGE. ON O2 @ 2LNC W/ O2 SAT OF 100%.PICC LINE ON BRITANY INTACT & PATENT. PAMELA CATH ON LEFT SUBCLAVIAN INTACT. IVF D10W/ 4MEQ NaCl @ 20cc/hr. AFEBRILE, BP STABLE. NOT IN ANY DISTRESS. REPOSITIONED W/ HOB ELEVATED.
[2016-12-21] MEDS: ATORVASTATIN 40 MG TABLET PO SCH (20:40)
--- NOTE | 2016-12-21 23:00 | NUR ---
HS CARE DONE. ORAL CARE DONE. REPOSITIONED ON HER SIDE W/ HOB ELEVATED.V/S STABLE.
--- NOTE | 2016-12-21 23:43 | NUR ---
PT ON O2 @ 2L/M NC, NO NEED FOR BI/PAP AT THIS TIME, PT IS AWAKE AND SLIGTLY TALKING, SAT 100% HR 76, NURSE INFORMED AND AGREES PT NEED NO BI.PAP AT THIS TIME, WILL MONITOR, NO SOB NOTED. Lucian BHATIA RCP Addendum: 12/21/16 at 2345 by BENJAMIN BHATIA RT Amended: Links added.
[2016-12-22] VITALS (24 sets, daily range): BP systolic 129–170; BP diastolic 52–81
--- NOTE | 2016-12-22 03:59 | NUR ---
PT ON O2 @ 2L/M NC, PT AWAKE MOST OF THE SHIFT, NO BI/PAP ON PATIENT, DOING WELL, NURSE EH IS AWARE AND ALSO NOTIFYING RT TO KEEP BI/PAP OFF, NO SOB NOTED, WITH SAT 100%. Lucian PIERSONP Addendum: 12/22/16 at 0404 by BENJAMIN BHATIA RT Amended: Links added.
--- NOTE | 2016-12-22 04:15 | NUR ---
AM CARE DONE . ORAL CARE DONE. CHANGED DRSG ON PAMELA CATH SITE, BLOODY DRSG NOTED. NOT IN ANY DISTRESS.
[2016-12-22] MEDS: NORMAL SALINE FLUSH 10 ML DISP.SYRIN IV SCH ×3 (05:51→21:40)
--- NOTE | 2016-12-22 06:00 | NUR ---
RESTING QUITELY. V/S STABLE.
[2016-12-22] MEDS: PANTOPRAZOLE SODIUM 40 MG TABLET.DR PO SCH (06:17)
--- NOTE | 2016-12-22 07:30 | NUR ---
RECIEVED PT RESTING CALMY IN BED, ON HIGH FOWLERS, APPEARS IN PLEASANT SPIRIT. NO APPARENT SOB NOTED. VSS AND RECORDED. HEMODIALYSIS NURSE AT BEDSIDE AND STARTED TO DO HEMODIALYSIS SCHEDULED THIS MORNING. PT IS TOLERATING IT. SUBCLAVIAN LINE FOR HD IS INTACT. AFEBRILE.
[2016-12-22] MEDS: BLOOD SUGAR DIAGNOSTIC 1 EACH STRIP VI SCH ×4 (08:24→21:39)
[2016-12-22] MEDS: MULTIVIT, IRON, MIN NO. 8, FA TABLET PO SCH (09:02)
[2016-12-22] MEDS: ASPIRIN 81 MG TAB.CHEW PO SCH (09:02)
[2016-12-22] MEDS: ASCORBIC ACID 500 MG TABLET PO SCH (09:02)
[2016-12-22] MEDS: DOCUSATE SODIUM 100 MG CAPSULE PO SCH ×2 (09:02→17:14)
[2016-12-22] MEDS: CHOLECALCIFEROL 1,000 UNIT TABLET PO SCH (09:03)
[2016-12-22] MEDS: Z GUARD REMEDY PASTE 57 GM TUBE TOP SCH ×2 (09:04→21:39)
[2016-12-22] MEDS: CLOTRIMAZOLE 1% CREAM 30 GM TUBE TOP SCH (09:04)
--- NOTE | 2016-12-22 09:30 | NUR ---
SEEN AND EXAMINED BY DR HENAO WITH NEW ORDERS.
--- NOTE | 2016-12-22 10:55 | NUR ---
SEEN AND EXAMINED BY DR MCQUEEN WITH NEW ORDERS.
--- NOTE | 2016-12-22 11:30 | NUR ---
HEMODIALYSIS IS DONE. PT TOLERATED WELL. TOTAL FLUID REMOVED IS 3,000. PT APPEARS MORE COMFORTABLE AND VSS STABLE. ATE LATE BREAKFAST AND TOLERATED ABOUT 5%.
[2016-12-22] MEDS: CARVEDILOL 6.25 MG TABLET PO SCH ×2 (12:56→17:15)
--- NOTE | 2016-12-22 14:00 | NUR ---
PT IS SLEEPING INTERMITTENTLY. REPOSITION TO SIDES AT FREQUENT INTERVAL. CONDITION IS STABLE.
[2016-12-22] MEDS: SODIUM CHLORIDE 4 MEQ/ML VIAL 77 MEQ in IV 10% DEXTROSE 1,000 ML IV PRN (14:56)
[2016-12-22] MEDS: ATORVASTATIN 40 MG TABLET PO SCH (21:41)
[2016-12-23] VITALS (20 sets, daily range): BP systolic 127–154; BP diastolic 50–78
--- NOTE | 2016-12-23 02:40 | NUR ---
Per RN KH request pt back on BIPAP at this time. Settings IPAP 15, EPAP 5, resp. rate 16 and FIO2-30%. No resp. distress noted at this time. BVM at bedside. Vision alarm parameters have been checked and remain audible at this time.
[2016-12-23 05:27] LABS: EOSINOPHILS # (AUTO) 0.2 K/uL (0.0-0.7); EOSINOPHILS % (AUTO) 2.1 % (0.0-7.0); HEMATOCRIT 28.4 % (31.2-41.9); HEMOGLOBIN 9.3 g/dL (10.9-14.3); LYMPHOCYTES # (AUTO) 0.9 K/uL (40.0-85.0); LYMPHOCYTES % (AUTO) 11.2 % (20.5-51.5); MEAN CORPUSCULAR HEMOGLOBIN 29.4 uug (24.7-32.8); MEAN CORPUSCULAR HGB CONC 33 g/dL (32.3-35.6); MONOCYTES # (AUTO) 0.4 K/uL (2.0-10.0); MONOCYTES % (AUTO) 5.5 % (0.0-11.0); NEUTROPHILS # (AUTO) 6.2 K/uL (1.8-8.9); NEUTROPHILS % (AUTO) 81.2 % (38.5-71.5); PLATELET COUNT (AUTO) 108 K/uL (179-408); RED BLOOD CELL COUNT(AUTO) 3.16 MIL/uL (3.63-4.92); RED CELL DISTRIBUTION WIDTH 18.5 % (12.3-17.7); WHITE BLOOD COUNT (AUTO) 7.7 K/uL (3.8-11.8)
[2016-12-23 05:29] LABS: CALCIUM 7.8 mg/dL (8.5-10.1); MAGNESIUM 2.1 mg/dL (1.8-2.4); POTASSIUM 3.8 mmol/L (3.5-5.1)
[2016-12-23] MEDS: NORMAL SALINE FLUSH 10 ML DISP.SYRIN IV SCH ×3 (05:30→21:51)
[2016-12-23 05:41] LABS: CREATININE 2.4 mg/dL (0.6-1.3)
[2016-12-23] MEDS: BLOOD SUGAR DIAGNOSTIC 1 EACH STRIP VI SCH ×4 (06:50→20:55)
[2016-12-23] MEDS: PANTOPRAZOLE SODIUM 40 MG TABLET.DR PO SCH (06:57)
--- NOTE | 2016-12-23 08:00 | NUR ---
Pt received awake and alert with fall precautions and safety measures maintained. grey tender and alarms working properly wnl. Pt on 2L NC with humidifier.. Pt stable and nad noted.
[2016-12-23] MEDS: ASCORBIC ACID 500 MG TABLET PO SCH (08:23)
[2016-12-23] MEDS: CARVEDILOL 6.25 MG TABLET PO SCH ×2 (08:23→17:51)
[2016-12-23] MEDS: ASPIRIN 81 MG TAB.CHEW PO SCH (08:23)
[2016-12-23] MEDS: DOCUSATE SODIUM 100 MG CAPSULE PO SCH ×2 (08:23→17:51)
[2016-12-23] MEDS: MULTIVIT, IRON, MIN NO. 8, FA TABLET PO SCH (08:24)
[2016-12-23] MEDS: CHOLECALCIFEROL 1,000 UNIT TABLET PO SCH (08:25)
[2016-12-23] MEDS: Z GUARD REMEDY PASTE 57 GM TUBE TOP SCH ×2 (08:25→21:51)
[2016-12-23] MEDS: CLOTRIMAZOLE 1% CREAM 30 GM TUBE TOP SCH (08:26)
--- NOTE | 2016-12-23 10:02 | NUR ---
Dr. Lira here to see pt. Full report given. No new orders received.
[2016-12-23 10:13] LABS: ABG HCO3 32.6 mmol/L; ABG PCO2 83.2 mmHg (35.0-45.0); ABG PH 7.211 (7.350-7.450); ABG SITE RIGHT RADIAL; ABG TOTAL HEMOGLOBIN 10.5 G/dL (12.0-16.0); COHb 1.6 % (0.5-1.5); MetHb 0.4 % (0.0-1.5); O2Hb 92.9 % (94.0-97.0)
--- NOTE | 2016-12-23 11:56 | NUR ---
Physical therapy here at the bedside with the pt.
[2016-12-23] MEDS: SODIUM CHLORIDE 4 MEQ/ML VIAL 77 MEQ in IV 10% DEXTROSE 1,000 ML IV PRN (14:10)
--- NOTE | 2016-12-23 14:10 | NUR ---
Dr. Chaudhary here to see pt. stated that it was okay to downgrade pt to telemetry status.
--- NOTE | 2016-12-23 15:16 | NUR ---
middle school coach here to see pt for dialysis.
--- NOTE | 2016-12-23 17:44 | NUR ---
Dialysis complete. 1.7L of hemodialysis fluid removed. Pt stable and nad noted upon completion of dialysis.
--- NOTE | 2016-12-23 19:00 | NUR ---
End of shift: Pt resting in bed awake and alert with fall precautions and safety measures maintained. middle [employer] baseball coach and alarms working properly wnl. Pt on 2L NC with humidifier. IVF infusing as ordered. Grayson catheter intact and draining properly. DVT pumps on bilaterally. Pt stable and nad noted. Endorsed to inventory technician RN to transfer the pt to 2nd floor telemetry.
--- NOTE | 2016-12-23 20:50 | NUR ---
Report received from ImeldaRN
--- NOTE | 2016-12-23 21:15 | NUR ---
TRANSFERED TO TELEMETRY VIA BED. PT. V/S STABLE. NOT IN ANY DISTRESS.
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
[2016-12-23] MEDS: ATORVASTATIN 40 MG TABLET PO SCH (21:50)
--- NOTE | 2016-12-24 00:15 | NUR ---
Applied bedpan, pt expressed to have bowel movement.
--- NOTE | 2016-12-24 02:00 | NUR ---
Pt resting comfortably, breathing normally
--- NOTE | 2016-12-24 03:00 | NUR ---
Provided her soup as requested.
--- NOTE | 2016-12-24 03:25 | NUR ---
Pt placed back on BIPAP with previous settings. Protecta-gel in place. Tolerating settings well. SpO2-98% BIPAP alarm parameters checked, on and audible. Will continue to monitor.
[2016-12-24 04:00] VITALS: BP 143/66
--- NOTE | 2016-12-24 04:00 | NUR ---
Bedbath rendered,changed linens, made pt comfortable.
[2016-12-24] MEDS: BLOOD SUGAR DIAGNOSTIC 1 EACH STRIP VI SCH ×4 (06:00→20:49)
--- NOTE | 2016-12-24 06:00 | NUR ---
GIven meds as ordered, flushed line with NS w/ no difficulty
[2016-12-24] MEDS: PANTOPRAZOLE SODIUM 40 MG TABLET.DR PO SCH (06:27)
[2016-12-24] MEDS: NORMAL SALINE FLUSH 10 ML DISP.SYRIN IV SCH ×3 (06:27→22:26)
[2016-12-24 06:46] LABS: EOSINOPHILS # (AUTO) 0.1 K/uL (0.0-0.7); EOSINOPHILS % (AUTO) 1.3 % (0.0-7.0); HEMATOCRIT 28.1 % (31.2-41.9); HEMOGLOBIN 9.3 g/dL (10.9-14.3); LYMPHOCYTES # (AUTO) 0.8 K/uL (20.0-40.0); LYMPHOCYTES % (AUTO) 9.2 % (20.5-51.5); MEAN CORPUSCULAR HGB CONC 33 g/dL (32.3-35.6); MEAN CORPUSCULAR VOLUME 90.5 fL (75.5-95.3); MONOCYTES # (AUTO) 0.4 K/uL (2.0-10.0); NEUTROPHILS # (AUTO) 7.8 K/uL (1.8-8.9); NEUTROPHILS % (AUTO) 85.5 % (38.5-71.5); PLATELET COUNT (AUTO) 106 K/uL (179-408); RED BLOOD CELL COUNT(AUTO) 3.11 MIL/uL (3.63-4.92); RED CELL DISTRIBUTION WIDTH 18.3 % (12.3-17.7); WHITE BLOOD COUNT (AUTO) 9.1 K/uL (3.8-11.8)
--- NOTE | 2016-12-24 07:00 | NUR ---
Report to HEATHER Bray
[2016-12-24 07:04] LABS: CALCIUM 7.7 mg/dL (8.5-10.1); MAGNESIUM 2.1 mg/dL (1.8-2.4); PHOSPHOROUS 3.2 mg/dL (2.5-4.9); POTASSIUM 4.1 mmol/L (3.5-5.1)
[2016-12-24 07:18] LABS: CREATININE 2.2 mg/dL (0.6-1.3)
--- NOTE | 2016-12-24 08:30 | NUR ---
AWAKE FORGETFUL BUT COOPERATE WELL NO RESPIRATORY DISTRESS ON O2 AT 2L O2 SAT WAS 96% ON ASPIRATION /FALL PRECAUTION BED ALARM RESIDENTIAL PROGRAM WORKER REARDON IN REACH AND SITTER1:1 AT BEDSIDE FOR SAFETY
[2016-12-24] MEDS: ASCORBIC ACID 500 MG TABLET PO SCH (08:47)
[2016-12-24] MEDS: MULTIVIT, IRON, MIN NO. 8, FA TABLET PO SCH (08:47)
[2016-12-24] MEDS: DOCUSATE SODIUM 100 MG CAPSULE PO SCH ×2 (08:47→17:03)
[2016-12-24] MEDS: CALCIUM CARBONATE 500 MG TABLET PO PRN (08:47)
[2016-12-24] MEDS: ASPIRIN 81 MG TAB.CHEW PO SCH (08:47)
[2016-12-24] MEDS: CARVEDILOL 6.25 MG TABLET PO SCH ×2 (08:48→17:05)
[2016-12-24] MEDS: CHOLECALCIFEROL 1,000 UNIT TABLET PO SCH (08:48)
[2016-12-24] MEDS: Z GUARD REMEDY PASTE 57 GM TUBE TOP SCH ×2 (08:49→21:00)
[2016-12-24] MEDS: CLOTRIMAZOLE 1% CREAM 30 GM TUBE TOP SCH (08:49)
--- NOTE | 2016-12-24 09:45 | NUR ---
DR WHITE WAS INFORM OF ABG RESULT PCO2 HIGH 83 AND ORDER IN CHART ,RT CHANGE TO BIPAPO5/5 PMIST 30% STEVIE WELL RESTING
[2016-12-24 09:49] LABS: ABG BASE EXCESS -0.8 mmol/L; ABG HCO3 27.7 mmol/L; ABG PCO2 67.2 mmHg (35.0-45.0); ABG PH 7.233 (7.350-7.450); ABG PO2 78.9 mmHg (75.0-100.0); ABG SITE RIGHT RADIAL; ABG TOTAL HEMOGLOBIN 10.8 G/dL (12.0-16.0); MetHb 0.4 % (0.0-1.5); O2Hb 93.3 % (94.0-97.0); VENT MODE Nasal Cannula
--- NOTE | 2016-12-24 10:40 | NUR ---
PLACED ON BIPAP POST ABG. SETTING ARE IPAP 15, EPAP 5, RR 16, 30% FIO2. TOLERATING SETTINGS WELL AT THIS TIME. ALARMS ARE ON AND AUDIBLE, BVM AT BEDSIDE. WILL CONTINUE TO MONITOR.
[2016-12-24 12:00] VITALS: BP 146/61
--- NOTE | 2016-12-24 12:00 | NUR ---
VS TAKEN TEMP WAS 97F PER RECTUM KEEP WITH WARM BLANKET AT ALL TIME
[2016-12-24] MEDS ORDERED: Z GUARD REMEDY PASTE 57 GM TUBE TOP PRN (13:15)
--- NOTE | 2016-12-24 14:00 | NUR ---
REPOSITION Q2 HR WHILE IN BED NO SOB OR PAIN CONTINUE O2 AT 2L/MIN VIA N/C AND IVF
[2016-12-24] MEDS: SODIUM CHLORIDE 4 MEQ/ML VIAL 77 MEQ in IV 10% DEXTROSE 1,000 ML IV PRN (14:07)
[2016-12-24 15:14] VITALS: BP 127/67
[2016-12-24 15:17] VITALS: BP 127/67
--- NOTE | 2016-12-24 15:30 | NUR ---
Received report from Katarina Avilez. Checked on pt with 1:1 sitter. PT is in no acute distress. Left upper arm +3 edema noted. Call light is within reach. Pt currently on bipap and planed to be take off bipap by 1700 for dinner.
--- NOTE | 2016-12-24 18:28 | NUR ---
Pt had good appetite for dinner. Pt denies any c/o pain. Call light is within reach.
--- NOTE | 2016-12-24 19:30 | NUR ---
RECEIVED SHIFT REPORT. PATIENT RESTING IN BED, ALERT, NO ACUTE DISTRESS, IVF INFUSING. EDEMA NOTED ON LEFT UPPER ARM 3+ PITTING. CALL LIGHT WITHIN REACH, AIR MATTRESS FUNCTIONING, BED ALARM ON, 1:1 SITTER AT BEDSIDE FOR SAFETY. WILL CONTINUE TO MONITOR.
[2016-12-24 19:43] VITALS: BP 126/71
[2016-12-24] MEDS: HYDROCODONE/APAP 5-325MG TABLET PO PRN (20:48)
[2016-12-24] MEDS: ATORVASTATIN 40 MG TABLET PO SCH (20:48)
--- NOTE | 2016-12-24 21:00 | NUR ---
PT ON TELE SR 78 Addendum: 12/25/16 at 0154 by YECENIA SALEH RN PT DOZING INTERMITTENTLY, NO RESPIRATORY DISTRESS.
[2016-12-25] VITALS: BP 125/66
--- NOTE | 2016-12-25 00:29 | NUR ---
PATIENT WAS PLACED BACK ON BIPAP AT 0010. SETTING ARE IPAP 15, EPAP 5, RR 16, 30% FIO2. TOLERATING THESE CURRENT SETTINGS WELL AT THIS TIME. AMBU BAG AND SITTER AT BEDSIDE. ALARMS IS ON AND LOUD. WILL CONTINUE TO MONITOR PATIENT.
[2016-12-25 04:00] VITALS: BP 142/77
[2016-12-25 05:25] LABS: ABG BASE EXCESS -0.7 mmol/L; ABG HCO3 27.1 mmol/L; ABG PCO2 61.6 mmHg (35.0-45.0); ABG PH 7.261 (7.350-7.450); ABG PO2 64.7 mmHg (75.0-100.0); ABG SITE RIGHT RADIAL; COHb 1.7 % (0.5-1.5); MetHb 0.3 % (0.0-1.5); VENT MODE BIPAP 15/5
[2016-12-25] MEDS: NORMAL SALINE FLUSH 10 ML DISP.SYRIN IV SCH ×3 (06:22→21:30)
[2016-12-25] MEDS: PANTOPRAZOLE SODIUM 40 MG TABLET.DR PO SCH (06:22)
[2016-12-25] MEDS: BLOOD SUGAR DIAGNOSTIC 1 EACH STRIP VI SCH ×4 (06:30→20:23)
--- NOTE | 2016-12-25 06:55 | NUR ---
PATIENT SLEPT INTERMITTENTLY FOR THE NIGHT, IN NO ACUTE DISTRESS, NO HYPOGLYCEMIA EPISODE. URINE OUTPUT NOTED TO BE CRANBERRY COLORED URINE WITH NO PRESENCE OF CLOTS. NOTIFIED CHARGE NURSE, WILL ENDORSE TO THE NEXT SHIFT. PT ON BIPAP, TOLERATING WELL, NO RESPIRATORY DISTRESS, NO SOB. ABGs DRAWN THIS MORNING, PCO2 RESULT 61.6 TRENDING DOWN. IVF INFUSING. CALL LIGHT WITHIN REACH, BED ALARM ON, 1:1 SITTER AT BEDSIDE FOR SAFETY.
[2016-12-25 07:10] LABS: EOSINOPHILS # (AUTO) 0.2 K/uL (0.0-0.7); EOSINOPHILS % (AUTO) 2.1 % (0.0-7.0); HEMATOCRIT 27.7 % (31.2-41.9); HEMOGLOBIN 9.3 g/dL (10.9-14.3); LYMPHOCYTES # (AUTO) 0.9 K/uL (20.0-40.0); LYMPHOCYTES % (AUTO) 9.2 % (20.5-51.5); MEAN CORPUSCULAR HEMOGLOBIN 30.3 uug (24.7-32.8); MEAN CORPUSCULAR HGB CONC 33 g/dL (32.3-35.6); MEAN CORPUSCULAR VOLUME 90.6 fL (75.5-95.3); MONOCYTES # (AUTO) 0.4 K/uL (2.0-10.0); MONOCYTES % (AUTO) 4.2 % (0.0-11.0); NEUTROPHILS # (AUTO) 8.3 K/uL (1.8-8.9); NEUTROPHILS % (AUTO) 84.5 % (38.5-71.5); PLATELET COUNT (AUTO) 125 K/uL (179-408); RED BLOOD CELL COUNT(AUTO) 3.06 MIL/uL (3.63-4.92); WHITE BLOOD COUNT (AUTO) 9.8 K/uL (3.8-11.8)
[2016-12-25 07:23] LABS: MAGNESIUM 2.3 mg/dL (1.8-2.4); PHOSPHOROUS 3.6 mg/dL (2.5-4.9); POTASSIUM 4.5 mmol/L (3.5-5.1)
[2016-12-25 07:25] LABS: CREATININE 2.7 mg/dL (0.6-1.3)
--- NOTE | 2016-12-25 08:00 | NUR ---
PATIENT ON BIPAP SETS @ 15/5, AWAKE ALERT AND TALKING WITH NO SIGNS OF DISTRESS, NO SIGNS OF HYPO OR HYPERGLYCEMIA. LABS NOTED
[2016-12-25] MEDS: ASCORBIC ACID 500 MG TABLET PO SCH (08:09)
[2016-12-25] MEDS: CHOLECALCIFEROL 1,000 UNIT TABLET PO SCH (08:09)
[2016-12-25] MEDS: ASPIRIN 81 MG TAB.CHEW PO SCH (08:09)
[2016-12-25] MEDS: MULTIVIT, IRON, MIN NO. 8, FA TABLET PO SCH (08:09)
[2016-12-25] MEDS: DOCUSATE SODIUM 100 MG CAPSULE PO SCH ×2 (08:09→17:21)
[2016-12-25] MEDS: CARVEDILOL 6.25 MG TABLET PO SCH ×2 (08:10→17:23)
[2016-12-25] MEDS: CLOTRIMAZOLE 1% CREAM 30 GM TUBE TOP SCH (08:11)
[2016-12-25] MEDS: Z GUARD REMEDY PASTE 57 GM TUBE TOP SCH ×2 (08:11→20:20)
[2016-12-25 08:16] VITALS: BP 142/62
--- NOTE | 2016-12-25 09:30 | NUR ---
SEEN BY DR MATOS NOTED LABS WITH ORDERS. FOR HD TODAY
--- NOTE | 2016-12-25 10:07 | NUR ---
RECEIVED PT AWAKE AND ALERT WITH NO DISTRESS IN THE MORNING. REMOVED BIPAP WITH NO PROBLEM. PT WAS TALKING AND IS MORE ALERT THIS MORNING. PLACED ON 2LPM NC.
[2016-12-25 12:00] VITALS: BP 101/58
--- NOTE | 2016-12-25 13:34 | NUR ---
RESTING COMFORTABLY IN BED WITH O2 2L NC SATURATING 100%
[2016-12-25 19:12] VITALS: BP 133/73
[2016-12-25] MEDS: ATORVASTATIN 40 MG TABLET PO SCH (20:20)
[2016-12-25] MEDS: IPRATROPIUM BROMIDE 0.5 MG/2.5 ML NEBU IH PRN (21:37)
--- NOTE | 2016-12-25 23:44 | NUR ---
PT BACK ON BI/PAP AT 23:25, WITH SETTINGS, 15/5 PSV 10, RATE 16, 30% WITH FULL MASK, PT HAS CONT PULSE OXY AT BEDSIDE, SAT 99%, HR 74, DOES WAKE UP AT TIMES, PT HAS MANAGER PUBLISHING AT BEDSIDE. Lucian PIERSONP Addendum: 12/25/16 at 2346 by BENJAMIN BHATIA RT Amended: Links added.
[2016-12-26] VITALS (9 sets, daily range): BP systolic 131–146; BP diastolic 57–75
[2016-12-26] MEDS: PANTOPRAZOLE SODIUM 40 MG TABLET.DR PO SCH (06:09)
[2016-12-26] MEDS: NORMAL SALINE FLUSH 10 ML DISP.SYRIN IV SCH ×3 (06:10→21:33)
[2016-12-26] MEDS: BLOOD SUGAR DIAGNOSTIC 1 EACH STRIP VI SCH ×4 (06:31→20:23)
--- NOTE | 2016-12-26 06:43 | NUR ---
PT SLEPT INTERMITTENTLY, NO ACUTE DISTRESS. HOB ELEVATED FOR ASPIRATION PRECAUTION, REPOSITIONED FOR COMFORT, PROVIDED SKIN CARE, KEPT CLEAN/DRY. PT ON TELE SINUS RHYTHM. BED ALARM ON, CALL LIGHT WITHIN REACH, 1:1 SITTER FOR SAFETY. WILL CONTINUE TO MONITOR.
--- NOTE | 2016-12-26 06:57 | NUR ---
CALLED MARY (PATIENT'S SON) REGARDING PATIENT'S RENAL BIOPSY PROCEDURE SCHEDULED TODAY 12/26/16 AT 1500. PATIENT'S SON AGREED AND STATED HE WILL BE PRESENT AT AROUND 1100am TO SIGN THE CONSENT. WILL ENDORSE TO THE AM SHIFT RN.
[2016-12-26 08:28] LABS: EOSINOPHILS # (AUTO) 0.1 K/uL (0.0-0.7); EOSINOPHILS % (AUTO) 1.6 % (0.0-7.0); HEMATOCRIT 27.5 % (31.2-41.9); HEMOGLOBIN 8.9 g/dL (10.9-14.3); LYMPHOCYTES # (AUTO) 0.8 K/uL (20.0-40.0); LYMPHOCYTES % (AUTO) 8.6 % (20.5-51.5); MEAN CORPUSCULAR HEMOGLOBIN 29.2 uug (24.7-32.8); MEAN CORPUSCULAR HGB CONC 32 g/dL (32.3-35.6); MEAN CORPUSCULAR VOLUME 90.2 fL (75.5-95.3); MONOCYTES # (AUTO) 0.3 K/uL (2.0-10.0); MONOCYTES % (AUTO) 3.6 % (0.0-11.0); NEUTROPHILS # (AUTO) 7.9 K/uL (1.8-8.9); NEUTROPHILS % (AUTO) 86.2 % (38.5-71.5); PLATELET COUNT (AUTO) 125 K/uL (179-408); RED BLOOD CELL COUNT(AUTO) 3.05 MIL/uL (3.63-4.92); RED CELL DISTRIBUTION WIDTH 18.6 % (12.3-17.7); WHITE BLOOD COUNT (AUTO) 9.1 K/uL (3.8-11.8)
[2016-12-26 08:44] LABS: ALBUMIN 2.3 g/dL (3.4-5.0); BILIRUBIN,TOTAL 0.6 mg/dL (0.2-1.0); CALCIUM 7.8 mg/dL (8.5-10.1); MAGNESIUM 2.2 mg/dL (1.8-2.4); PHOSPHOROUS 3.3 mg/dL (2.5-4.9); POTASSIUM 4.7 mmol/L (3.5-5.1); TOTAL PROTEIN, SERUM 6.9 g/dL (6.4-8.2)
[2016-12-26 08:53] LABS: CREATININE 2.8 mg/dL (0.6-1.3)
[2016-12-26] MEDS: ASPIRIN 81 MG TAB.CHEW PO SCH (08:53)
[2016-12-26] MEDS: CARVEDILOL 6.25 MG TABLET PO SCH ×2 (08:53→18:00)
[2016-12-26] MEDS: ASCORBIC ACID 500 MG TABLET PO SCH (08:53)
[2016-12-26] MEDS: MULTIVIT, IRON, MIN NO. 8, FA TABLET PO SCH (08:53)
[2016-12-26] MEDS: CHOLECALCIFEROL 1,000 UNIT TABLET PO SCH (08:53)
[2016-12-26] MEDS: DOCUSATE SODIUM 100 MG CAPSULE PO SCH ×2 (08:53→18:28)
[2016-12-26] MEDS: CLOTRIMAZOLE 1% CREAM 30 GM TUBE TOP SCH (09:29)
[2016-12-26] MEDS: Z GUARD REMEDY PASTE 57 GM TUBE TOP SCH ×2 (09:29→20:20)
--- NOTE | 2016-12-26 10:06 | NUR ---
CALLED MARY (SON) IN REGARDS OF THE MEDICATION TAKEN PRIOR THE CT RENAL BIOPSY PROCEDURE. PER SON"I WILL BE THERE WILL HER MEDS". WAITING ON SON TO COME SIGN THE CONSENT AND REVIEW THE MEDICATIONS LIST.
--- NOTE | 2016-12-26 11:19 | NUR ---
Spoke to Kellie from [facility] [ ] who stated that they are still have not set up a schedule for the patient and their administration is still reviewing the case. As soon as they have a decision, she will call back.
[2016-12-26] MEDS ORDERED: MIDAZOLAM HCL 2 MG/2 ML VIAL IV PRN (11:45)
[2016-12-26] MEDS ORDERED: FENTANYL CITRATE 100 MCG/2 ML AMPUL IV PRN (11:45)
[2016-12-26] MEDS ORDERED: NALOXONE HCL 0.4 MG/ML AMPUL IV PRN (11:45)
--- NOTE | 2016-12-26 15:00 | NUR ---
PT IS TAKEN TO CT RENAL W/BIOPSY AND ULTRASOUND NEEDLE GUIDED BIOPSY. NO S/S OF RESPIRATORY DISTRESS NOTED PT IS ON 0.5 L NC WITH O2 SAT AT 92%
[2016-12-26] MEDS ORDERED: LIDOCAINE HCL 1% 20 ML VIAL ONE (15:10)
--- NOTE | 2016-12-26 17:30 | NUR ---
Called by Molly ROMERO to take BiPap down to recovery room for pt post procedure.. Pt placed on BiPap, tolerating well.. 1824, called by Molly ROMERO, pt was taken back to med surg, doing well at this time on nasal cannula..
--- NOTE | 2016-12-26 18:15 | NUR ---
PT CAME BACK FORM PROCEDURE. PT HAS INTACT DRESSING ON LEFT FALNK. V/S WNL. NO S/S OF RESPIRATORY DISTRESS, PT IS ON BIPAP AT 94%-95%. ALL SAFETY NEEDS ARE MET. 1:1 SITTER WILL CONTINUE TO MONITOR. REMINDED RT TO BRING O2 SAT CONTINUOUS MACHINE.
--- NOTE | 2016-12-26 19:00 | NUR ---
NO CHANGES NOTED. REPORT IS GIVEN.
--- NOTE | 2016-12-26 19:30 | NUR ---
RECEIVED PATIENT RESTING IN BED LAYING ON LEFT SIDE, S/P RENAL BIOPSY, DRESSING INTACT, NO BLEEDING ON SITE. PATIENT IN NO ACUTE DISTRESS, ON O2 1L VIA NC SATURATING AT 97%. SITTER AT BEDSIDE, SAFETY OBSERVED, WILL CONTINUE TO MONITOR.
[2016-12-26] MEDS: ATORVASTATIN 40 MG TABLET PO SCH (20:18)
[2016-12-26] MEDS: IPRATROPIUM BROMIDE 0.5 MG/2.5 ML NEBU IH PRN (21:02)
[2016-12-27] VITALS: BP 132/58
[2016-12-27 03:56] VITALS: BP 146/50
[2016-12-27] MEDS: NORMAL SALINE FLUSH 10 ML DISP.SYRIN IV SCH ×3 (05:58→22:15)
[2016-12-27] MEDS: PANTOPRAZOLE SODIUM 40 MG TABLET.DR PO SCH (06:00)
--- NOTE | 2016-12-27 06:30 | NUR ---
PATIENT DROWSY, AROUSABLE TO NAME AND TOUCH, NO SIGNS OF ACUTE DISTRESS. DRESSING ON LEFT FLANK INTACT, CLEAN/DRY, NO S/S OF BLEEDING. WILL CONTINUE TO MONITOR. 1:1 SITTER AT BEDSIDE
[2016-12-27] MEDS: BLOOD SUGAR DIAGNOSTIC 1 EACH STRIP VI SCH ×4 (06:40→20:50)
[2016-12-27] MEDS: ASCORBIC ACID 500 MG TABLET PO SCH (08:23)
[2016-12-27] MEDS: CHOLECALCIFEROL 1,000 UNIT TABLET PO SCH (08:23)
[2016-12-27] MEDS: MULTIVIT, IRON, MIN NO. 8, FA TABLET PO SCH (08:23)
[2016-12-27] MEDS: CARVEDILOL 6.25 MG TABLET PO SCH ×2 (08:24→17:22)
[2016-12-27] MEDS: DOCUSATE SODIUM 100 MG CAPSULE PO SCH ×2 (08:24→17:22)
[2016-12-27] MEDS: Z GUARD REMEDY PASTE 57 GM TUBE TOP SCH ×2 (08:25→20:54)
[2016-12-27] MEDS: CLOTRIMAZOLE 1% CREAM 30 GM TUBE TOP SCH (08:25)
[2016-12-27 08:57] VITALS: BP 137/85
[2016-12-27 09:12] LABS: ABG BASE EXCESS -2.3 mmol/L; ABG HCO3 27.4 mmol/L; ABG PCO2 78.9 mmHg (35.0-45.0); ABG PH 7.158 (7.350-7.450); ABG PO2 88.6 mmHg (75.0-100.0); ABG SITE LEFT BRACHIAL; ABG TOTAL HEMOGLOBIN 9.7 G/dL (12.0-16.0); COHb 1.5 % (0.5-1.5); MetHb 0.4 % (0.0-1.5); O2Hb 94.4 % (94.0-97.0); VENT MODE Nasal Cannula
[2016-12-27] MEDS: ASPIRIN 81 MG TAB.CHEW PO SCH (09:17)
--- NOTE | 2016-12-27 10:38 | NUR ---
CLINICAL PHARMACY NOTE(REVIEW OF [facility] MEDICATIONS) ER NOTE: This is a 76-year-old female transferred from [place] [facility] because of a report of shortness of breath. EMS was called. Her pulse oximetry was 88% on room air and went up to 9697% with 2 L of supplemental oxygen. However, the nursing facility called us several hours earlier to report that her potassium was 6.6 and she will be transported to our location. No further information is available from the patient, EMS or the long term. Old records were reviewed to reveal a history of progressive renal insufficiency, coronary artery disease with a history of bypass graft surgery, gastroesophageal reflux disease, type II diabetes mellitus, hypertension, hyperlipidemia, C. difficile infection, urinary tract infection, congestive heart failure, both decubitus ulcer formation and other complications. 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 Patient did have triple by pass. Morphine and hydrocodone with acetaminophen may cause ataxia, impaired psychomotor function, syncope, additional falls and constipation. Home medications included hydrocodone with acetaminophen. Patient has multiple problems which may require pain control. Patient also has routine stool softener ordered. Pantoprazole Avoid scheduled use for >8 weeks unless for high-risk patients (e.g. oral corticosteroids or chronic NSAID use), erosive esophagitis, Gallegos's esophagitis,, pathological hypersecretory condition, or demonstrated need for maintenance treatment. Risk of Clostridium difficile infection and bone loss and fractures. Patient dose have a history of GERD and is on aspirin. No recommendations at this time.
[2016-12-27 12:00] VITALS: BP 142/58
--- NOTE | 2016-12-27 13:23 | NUR ---
WOUND CARE CONSULT: PT SEEN PREVIOUSLY BY WOUND TEAM NOTED TO HAVE RT ARM WOUND, PREVIOUSLY OPEN BLISTER/SKIN TEAR AND SKIN TEAR TO LEFT CHEST. GROIN WOUND FOLLOWED BY DR ROB GOMEZ. RECOMMEND SURGICAL FOLLOW UP. PT ON FIRST STEP MATTRESS. PT TO BE TURNED AND REPOSITIONED EVERY 2 HRS PT CONDITION PERMITS, HEELS FLOATED. ALL SKIN PROTECTION AND WOUND RECOMMENDATIONS DISCUSSED WITH NURSING STAFF. MD IN AGREEMENT WITH PLAN OF CARE. Addendum: 12/27/16 at 1328 by JEN LOPEZ RN Amended: Links added.
[2016-12-27 15:53] VITALS: BP 144/63
--- NOTE | 2016-12-27 16:01 | NUR ---
Discharge plan: The patient will be returning to [facility] [ ; [address] [place] [address]] via [facility]. Spoke to the patient's family, Mak [ ], and grandson, Elia [ ], about the discharge and they were in agreement. Informed them that the patient will need to go to out-patient dialysis at [facility] [ ; [address] [place] [address]] every Tuesdays, and Saturdays at 13:30. Also spoke with Romina from [facility] and they confirmed that they will re-admit the patient and will arrange for the transportation to the dialysis center. Updated the zinc furnace chargerGalina.
--- NOTE | 2016-12-27 18:31 | NUR ---
PATIENT BEEN IN BED RESTING. NO S/S OF DISTRESS OR PAIN NOTED. SITTER 1:1 FOR SAFETY. PICC LINE STILL INTACT. DIALYSIS WAS DONE, 3L WERE TAKEN OUT. WOUND CONSULT WAS DONE BY HEATHER LI. DR GOMEZ WAS NOTIFIED FOR THE WOUND IN THE RIGHT ARM. HE CAME TO SEE PATIENT, POSSIBLE DEBRIDEMENT. FC PATENT, URINE IS BROWN AND BLOODY, MD AWARE. CRITICAL VALUE OF PCO2, DR. WHITE WAS NOTIFIED. OXYGENATION WAS TITRATED DOWN DUE TO HIGH CO2. O2 SAT WITHOUT OXYGENATION >88%, ASYMPTOMATIC. POOR APPETITE. REFUSING TO EAT DURING THE DAY, ATE SOME WITH THE FAMILY. SAFETY AND COMFORT PROVIDED. WILL CONTINUE MONITORING.
--- NOTE | 2016-12-27 19:40 | NUR ---
PATIENT AWAKE ON BED, NO FACIAL GRIMACES SHOWING ANY PAIN OR DISCOMFORT NOTED. O2 SAT 89% RA. DIALYSIS ACCESS DRESSING ON LEFT CHEST CLEAN AND INTACT. PICCLINE DRESSING L UPPER ARM INTACT . R FA WOUND COVERED WITH MEPILEX. F/C CLEAN. NO URINE NOTED. RECEIVED REPORT FROM DAY SHIFT THAT 50 CC OF DARK BROWN URINE OUTPUT AND MD AWARE OF THE SITUATION . NO BEHAVIORAL PROBLEMS NOTED. 1:1 SITTER ATT BEDSIDE FOR SAFETY. WILL CONTINUE TO MONITOR
[2016-12-27 20:00] VITALS: BP 148/66
[2016-12-27] MEDS: ATORVASTATIN 40 MG TABLET PO SCH (20:50)
[2016-12-27] MEDS: THERAHONEY GEL 1.5 OZ TUBE TOP SCH (20:52)
[2016-12-27] MEDS ORDERED: COLLAGENASE OINT 30 GM TUBE TOP SCH (21:00)
[2016-12-27] MEDS: MORPHINE SULFATE 2 MG/1 ML DISP.SYRIN IV PRN (23:10)
[2016-12-28] VITALS: BP 145/62
--- NOTE | 2016-12-28 | NUR ---
RECEIVED REPORT FROM HEATHER MORGAN. RECEIVED PT IN BED SLEEPING COMFORTABLY, NO S/S OF RESPIRATORY DISTRESS NOTED, ON ROOM AIR SAT 89% SHOWN ON BEDSIDE O2 MONITOR. ON TELE, SR ON THE MONITOR- HR 70. 1:1 SITTER AT BEDSIDE FOR SAFETY. WILL CONTINUE PLAN OF CARE.
[2016-12-28 04:00] VITALS: BP 140/64
[2016-12-28] MEDS: NORMAL SALINE FLUSH 10 ML DISP.SYRIN IV SCH ×3 (06:30→21:33)
[2016-12-28] MEDS: PANTOPRAZOLE SODIUM 40 MG TABLET.DR PO SCH (06:31)
[2016-12-28] MEDS: BLOOD SUGAR DIAGNOSTIC 1 EACH STRIP VI SCH ×4 (06:37→21:33)
--- NOTE | 2016-12-28 06:43 | NUR ---
pt in bed resting, slept intermittently through the night. no acute distress noted. wound care provided. Saturating 89-92% on room air. on tele; sr on the monitor. 1:1 sitter at bedside at all times. Needs met. Safety maintained.
[2016-12-28] MEDS: ASPIRIN 81 MG TAB.CHEW PO SCH (08:25)
[2016-12-28] MEDS: CHOLECALCIFEROL 1,000 UNIT TABLET PO SCH (08:25)
[2016-12-28] MEDS: MULTIVIT, IRON, MIN NO. 8, FA TABLET PO SCH (08:25)
[2016-12-28] MEDS: DOCUSATE SODIUM 100 MG CAPSULE PO SCH ×2 (08:25→17:27)
[2016-12-28] MEDS: ASCORBIC ACID 500 MG TABLET PO SCH (08:25)
[2016-12-28] MEDS: CARVEDILOL 6.25 MG TABLET PO SCH ×2 (08:27→17:29)
[2016-12-28] MEDS: CLOTRIMAZOLE 1% CREAM 30 GM TUBE TOP SCH (08:28)
[2016-12-28] MEDS: Z GUARD REMEDY PASTE 57 GM TUBE TOP SCH ×2 (08:28→21:32)
[2016-12-28] MEDS: THERAHONEY GEL 1.5 OZ TUBE TOP SCH ×2 (08:33→21:33)
[2016-12-28 10:36] LABS: ABG BASE EXCESS -0.4 mmol/L; ABG HCO3 26.3 mmol/L; ABG PCO2 53.8 mmHg (35.0-45.0); ABG PH 7.307 (7.350-7.450); ABG PO2 49.6 mmHg (75.0-100.0); ABG SITE LEFT RADIAL; ABG TOTAL HEMOGLOBIN 9.7 G/dL (12.0-16.0); COHb 2.3 % (0.5-1.5); MetHb 0.4 % (0.0-1.5); O2Hb 82.7 % (94.0-97.0)
[2016-12-28 11:15] VITALS: BP 148/74
[2016-12-28 11:20] VITALS: BP 138/71
[2016-12-28 15:42] VITALS: BP 142/68
--- NOTE | 2016-12-28 18:07 | NUR ---
Patient been in bed resting during my day. No s/s of distress or pain noted. Wound treatment done. Picc line still intact and patent, except for one lumen. Poor appetite during the day, only was able to eat some bites. Refusing most of the meals. F/C draining, but small quantities due to disease process. MD aware. ABG's PO2 critical value, PCO2 improved. Recommended to maintain <.5 L of Oxygen via NC. it have been maintain. O2 sat >90%. Patient have been asymptomatic during my shift, she is alert, but unable to communicate due to language barrier. MD aware about ABG's values. Safety and comfort provided by staff. Will continue monitoring.
[2016-12-28 20:00] VITALS: BP 158/76
[2016-12-28] MEDS: ATORVASTATIN 40 MG TABLET PO SCH (21:30)
[2016-12-29] VITALS: BP 163/85
[2016-12-29] MEDS: hydrALAZINE HCL 25 MG TABLET PO PRN ×2 (00:23→20:20)
[2016-12-29] MEDS ORDERED: hydrALAZINE HCL 25 MG TABLET ONE (00:29)
--- NOTE | 2016-12-29 02:38 | NUR ---
Pt resting well, denies pain, call light within reach. Dressing changed to right forearm. pt BP was high at 163/85, and 178/[address] Tracey was updated and we received PRN medication, med acknowledged and given. will continue to monitor. no SOB or respiratory distress noted, pt cont on O2 at 0.5L.
[2016-12-29 04:00] VITALS: BP 168/84
--- NOTE | 2016-12-29 05:29 | NUR ---
Pt most recent BP is 163/85, 62. pt denies pain and is resting, pt to have dialysis today. call light within reach, will endorse information to next shift.
[2016-12-29] MEDS: PANTOPRAZOLE SODIUM 40 MG TABLET.DR PO SCH (06:16)
[2016-12-29] MEDS: NORMAL SALINE FLUSH 10 ML DISP.SYRIN IV SCH ×3 (06:16→21:08)
[2016-12-29] MEDS: BLOOD SUGAR DIAGNOSTIC 1 EACH STRIP VI SCH ×4 (06:45→20:39)
--- NOTE | 2016-12-29 07:15 | NUR ---
PT IS SITTING IN BED COMFORTABLY. NO S/S OF RESPIRATORY DISTRESS NOTED. PT IS ON 0.5L NC. NO PAIN NOTED. ALL SAFETY NEEDS ARE MET. PT IS CALM ALERT. WILL CONTINUE TO MONITOR.
[2016-12-29 07:36] LABS: EOSINOPHILS # (AUTO) 0.1 K/uL (0.0-0.7); EOSINOPHILS % (AUTO) 0.9 % (0.0-7.0); HEMATOCRIT 28.2 % (31.2-41.9); HEMOGLOBIN 9.3 g/dL (10.9-14.3); LYMPHOCYTES # (AUTO) 0.9 K/uL (20.0-40.0); LYMPHOCYTES % (AUTO) 10.6 % (20.5-51.5); MEAN CORPUSCULAR HEMOGLOBIN 29.9 uug (24.7-32.8); MEAN CORPUSCULAR HGB CONC 33 g/dL (32.3-35.6); MEAN CORPUSCULAR VOLUME 90.6 fL (75.5-95.3); MONOCYTES # (AUTO) 0.4 K/uL (2.0-10.0); MONOCYTES % (AUTO) 5.2 % (0.0-11.0); NEUTROPHILS # (AUTO) 6.8 K/uL (1.8-8.9); NEUTROPHILS % (AUTO) 83.3 % (38.5-71.5); RED BLOOD CELL COUNT(AUTO) 3.11 MIL/uL (3.63-4.92); RED CELL DISTRIBUTION WIDTH 17.3 % (12.3-17.7); WHITE BLOOD COUNT (AUTO) 8.2 K/uL (3.8-11.8)
[2016-12-29 07:48] LABS: PLATELET COUNT (AUTO) 195 K/uL (179-408)
[2016-12-29] MEDS: MULTIVIT, IRON, MIN NO. 8, FA TABLET PO SCH (08:17)
[2016-12-29] MEDS: CHOLECALCIFEROL 1,000 UNIT TABLET PO SCH (08:17)
[2016-12-29] MEDS: DOCUSATE SODIUM 100 MG CAPSULE PO SCH ×2 (08:17→16:00)
[2016-12-29] MEDS: ASCORBIC ACID 500 MG TABLET PO SCH (08:17)
[2016-12-29] MEDS: ASPIRIN 81 MG TAB.CHEW PO SCH (08:17)
[2016-12-29] MEDS: CARVEDILOL 6.25 MG TABLET PO SCH ×2 (08:18→18:52)
[2016-12-29] MEDS: THERAHONEY GEL 1.5 OZ TUBE TOP SCH ×2 (08:18→20:19)
[2016-12-29] MEDS: Z GUARD REMEDY PASTE 57 GM TUBE TOP SCH ×2 (08:19→20:18)
[2016-12-29] MEDS: CLOTRIMAZOLE 1% CREAM 30 GM TUBE TOP SCH (08:19)
[2016-12-29 09:03] LABS: ALBUMIN 2.4 g/dL (3.4-5.0); BILIRUBIN,TOTAL 0.5 mg/dL (0.2-1.0); CALCIUM 7.9 mg/dL (8.5-10.1); MAGNESIUM 2.4 mg/dL (1.8-2.4); PHOSPHOROUS 3.7 mg/dL (2.5-4.9); POTASSIUM 4.9 mmol/L (3.5-5.1); TOTAL PROTEIN, SERUM 7.1 g/dL (6.4-8.2)
[2016-12-29 09:07] LABS: CREATININE 3.1 mg/dL (0.6-1.3)
[2016-12-29 11:07] VITALS: BP 161/82
[2016-12-29] MEDS ORDERED: EPOETIN ALFA 10,000 UNITS/ML VIAL IV PRN (11:30)
--- NOTE | 2016-12-29 13:49 | NUR ---
PT HAD DIALYSIS, 1.5 L REMOVED. NO S/S OF RESPIRATORY DISTRESS NOTED, VS WNL. NO PAIN NOTED.
[2016-12-29 15:06] VITALS: BP 148/74
--- NOTE | 2016-12-29 19:33 | NUR ---
PT IS LAYING IN BED COMFORTABLY. NO S/S OF RESPIRATORY DISTRESS NOTED. PT IS ON 0.5L NC. NO PAIN NOTED. WOUND CARE IS DONE. ALL SAFETY NEEDS ARE MET.
[2016-12-29 20:13] VITALS: BP 163/82
[2016-12-29] MEDS: ATORVASTATIN 40 MG TABLET PO SCH (20:18)
[2016-12-30 00:14] VITALS: BP 156/79
[2016-12-30 04:00] VITALS: BP 146/82
--- NOTE | 2016-12-30 05:48 | NUR ---
PT IN BED RESTING, SLEPT INTERMITTENTLY DURING SHIFT. IN NO ACUTE SIGNS OF DISTRESS. PT WAS GIVEN HYDRALAZINE LAST NIGHT FOR ELEVATED BP 163/82 . BP AT THIS TIME IS 146/82. AFEBRILE. ACCUCHECK LAST NIGHT WAS 169. NO S/S OF HYPO/HYPERGLYCEMIA OBSERVED. PICC LINE ON LEFT UPPER ARM PATENT AND INTACT. PT IS SINUS RHYTHM ON TELE. TURNED AND REPOSITIONED. SAFETY NEEDS RENDERED. CALL LIGHT WITHIN REACH.
[2016-12-30] MEDS: PANTOPRAZOLE SODIUM 40 MG TABLET.DR PO SCH (06:15)
[2016-12-30] MEDS: NORMAL SALINE FLUSH 10 ML DISP.SYRIN IV SCH (06:15)
[2016-12-30] MEDS: BLOOD SUGAR DIAGNOSTIC 1 EACH STRIP VI SCH ×2 (06:32→12:30)
--- NOTE | 2016-12-30 08:00 | NUR ---
Awake, alert, oriented to name, able verbalized needs, speaks some Yi. On moderate high back rest. O2 sat with 0.5 L/NC 96%. Placed on RA with O2 Sat of 98%. Ate only a couple of spoons of cream of wheat but drank Boost.
[2016-12-30] MEDS: ASPIRIN 81 MG TAB.CHEW PO SCH (08:56)
[2016-12-30] MEDS: ASCORBIC ACID 500 MG TABLET PO SCH (08:56)
[2016-12-30] MEDS: CHOLECALCIFEROL 1,000 UNIT TABLET PO SCH (08:56)
[2016-12-30] MEDS: MULTIVIT, IRON, MIN NO. 8, FA TABLET PO SCH (08:56)
[2016-12-30] MEDS: DOCUSATE SODIUM 100 MG CAPSULE PO SCH (08:56)
[2016-12-30] MEDS: CLOTRIMAZOLE 1% CREAM 30 GM TUBE TOP SCH (08:59)
[2016-12-30] MEDS: THERAHONEY GEL 1.5 OZ TUBE TOP SCH (08:59)
[2016-12-30] MEDS: Z GUARD REMEDY PASTE 57 GM TUBE TOP SCH (09:00)
[2016-12-30] MEDS: hydrALAZINE HCL 25 MG TABLET PO PRN (09:02)
[2016-12-30 10:01] LABS: ABG BASE EXCESS -0.6 mmol/L; ABG PCO2 45.2 mmHg (35.0-45.0); ABG PH 7.361 (7.350-7.450); ABG PO2 55.2 mmHg (75.0-100.0); ABG SITE RIGHT RADIAL; ABG TOTAL HEMOGLOBIN 10.3 G/dL (12.0-16.0); COHb 2.1 % (0.5-1.5); MetHb 0.4 % (0.0-1.5); O2Hb 86.6 % (94.0-97.0); VENT MODE ROOM AIR
[2016-12-30] MEDS ORDERED: HONEY TOP (10:11)
[2016-12-30] MEDS ORDERED: CARV6.252 PO (10:11)
[2016-12-30] MEDS: CARVEDILOL 6.25 MG TABLET PO SCH (10:24)
[2016-12-30] MEDS ORDERED: AMLODIPINE 5 MG TABLET PO SCH (12:30)
[2016-12-30 12:42] VITALS: BP 144/72
--- NOTE | 2016-12-30 14:30 | NUR ---
With discharge order to SNF, arranged with [facility]. Report given to Kari. Grayson Removed. PICC line removed, line intact at 37 ". Wound care done with photos taken. Discharged per gurney/ambulance in fair condition, not in distress, afebrile
== END 2016-12-30 14:30 | DRG 291 ==
LOC: ER 17:26 → CCU 21:37 → TELE 12-23 19:19
PROVIDERS: ADMIT Internal Medicine; ATTEND Internal Medicine
PROC: 5A09557 Assistance with Respiratory Ventilation, Greater than 96 Consecutive Hours, Continuous Positive Airway Pressure (ICD-10-PCS; principal; 2016-12-13)
PROC: 02HV33Z Insertion of Infusion Device into Superior Vena Cava, Percutaneous Approach (ICD-10-PCS; 2016-12-13)
PROC: 05H533Z Insertion of Infusion Device into Right Subclavian Vein, Percutaneous Approach (ICD-10-PCS; 2016-12-14)
PROC: 0W9B3ZZ Drainage of Left Pleural Cavity, Percutaneous Approach (ICD-10-PCS; 2016-12-16)
PROC: 05H633Z Insertion of Infusion Device into Left Subclavian Vein, Percutaneous Approach (ICD-10-PCS; 2016-12-18)
PROC: 30233N1 Transfusion of Nonautologous Red Blood Cells into Peripheral Vein, Percutaneous Approach (ICD-10-PCS; 2016-12-19)
DX: I13.0 Hypertensive heart and chronic kidney disease with heart failure and stage 1 through stage 4 chronic kidney disease, or unspecified chronic kidney disease (principal); N17.0 Acute kidney failure with tubular necrosis; I50.43 Acute on chronic combined systolic (congestive) and diastolic (congestive) heart failure; J96.02 Acute respiratory failure with hypercapnia; J96.01 Acute respiratory failure with hypoxia; J18.9 Pneumonia, unspecified organism; T31.22 Burns involving 20-29% of body surface with 20-29% third degree burns; E87.2 Acidosis; J90 Pleural effusion, not elsewhere classified; N04.9 Nephrotic syndrome with unspecified morphologic changes; E87.5 Hyperkalemia; F03.90 Unspecified dementia, unspecified severity, without behavioral disturbance, psychotic disturbance, mood disturbance, and anxiety; I25.10 Atherosclerotic heart disease of native coronary artery without angina pectoris; Z79.84 Long term (current) use of oral hypoglycemic drugs; E78.5 Hyperlipidemia, unspecified; Z95.1 Presence of aortocoronary bypass graft; K21.9 Gastro-esophageal reflux disease without esophagitis; Z79.899 Other long term (current) drug therapy; N18.2 Chronic kidney disease, stage 2 (mild); E11.22 Type 2 diabetes mellitus with diabetic chronic kidney disease; E11.649 Type 2 diabetes mellitus with hypoglycemia without coma; D25.9 Leiomyoma of uterus, unspecified; D64.9 Anemia, unspecified; I34.0 Nonrheumatic mitral (valve) insufficiency; I48.0 Paroxysmal atrial fibrillation; I25.2 Old myocardial infarction; I70.0 Atherosclerosis of aorta; K59.00 Constipation, unspecified; Z99.2 Dependence on renal dialysis; X08.8XXS Exposure to other specified smoke, fire and flames, sequela; R60.1 Generalized edema; Z87.440 Personal history of urinary (tract) infections
CPT/HCPCS: 32555; 36415; 36569; 36600; 51702; 70030-TC; 71010; 71250; 72192; 74150; 76770; 76942; 83550; 83605; 83615; 83735; 83970; 84100; 84155; 84156; 84165; 84300; 85025; 85651; 85730; 86038; 86160; 86706; 86803; 86850; 86900; 86901; 86920; 87040; 87070; 87205; 87340; 90937; 92506; 93005; 93307; 94640; 94660; 97001; 97003; 97110; 97116; 97530; 97535; A4663; C1751; J0885; J1644; J1815; J1940; J2250; J2270; J3490; J3590; J7040; J7050; J7060; J7131; P9016-BL; P9021; P9047